=== PATIENT | female | born 1955 | race African-American/Black ===

== ENCOUNTER 2021-11-04 13:23 | Inpatient (IN) | payer MEDICARE, MEDICAID, SELFPAY ==
[2021-11-04] VITALS (32 sets, daily range): BP systolic 114–171; BP diastolic 58–112; PULSE 70–103; RESP 12–25; TEMP 35.5–37.1; O2SAT 90–100; BMI 29.7; BMI 30.1
--- NOTE | ~2021-11-04 | XR_ITS ---
EXAMINATION: XR hip RT min 3V w AP pelvis EXAM DATE: 11/04/2021 14:54 INDICATION: Right hip pain, fall. Initial encounter. TECHNIQUE: Right hip frontal, crosstable lateral and 'frog-leg' projections for interpretation. Front al projection pelvis. There is no prior study for comparison. FINDINGS: Smooth right hip femoral head contour, no radiographic evidence of avascular necrosis. The re is moderate symmetric bilateral hip primary osteoarthritis. There are no acute fractures or disloc ations identified. There is no subcutaneous gas. The soft tissue is unremarkable. There are no ra diopaque foreign bodies. IMPRESSION: 1. Pelvis, right hip exam without acute osseous findings. 2. Moderate osteoarthritis. Reviewed, dictated and finalized at location A. STRIAL MAINTENANCE INSTRUCTOR
--- NOTE | ~2021-11-04 | US_ITS ---
EXAMINATION: US thyroid EXAM DATE: 11/07/2021 15:09 INDICATION: Thyroid enlargement. TECHNIQUE: Multiple grayscale and Doppler images of the thyroid were obtained (by a technologist who performed the scan) and subsequently reviewed. Individual nodules and recommendations may be reporte d in accordance with TI-RADS system as designated by the 2017 ACR White Paper TI-RADS committee. Sharif elation is made to CT cervical spine 11/04/2021. FINDINGS: The right thyroid lobe measures 5.5 x 3.1 x 2.6 cm, has heterogeneous echogenicity with multiple thyr oid nodules, largest category TR 4 nodule measuring 2.9 x 2.5 x 2.9 cm. The left thyroid lobectomy be d is unremarkable. IMPRESSION: Enlarged multinodular right thyroid lobe. Largest nodule could be considered for ultrasou nd-guided FNA. Reviewed, dictated and finalized at location A. PROCESSING LABOURER IMPRESSION: Enlarged multinodular right thyroid lobe. Largest nodule could be c onsidered for ultrasound-guided FNA.
--- NOTE | ~2021-11-04 | CT_ITS ---
EXAMINATION: CT abdomen pelvis wo con DATE: 11/07/2021 15:18 INDICATION: Loss of appetite, weight loss TECHNIQUE: Computed tomography (CT) of the abdomen and pelvis was performed without intravenous contr ast. The dose-length product (DLP) was 677.23 mGy-cm. Automated exposure control and iterative recons truction technique were employed. COMPARISON: 06/07/2008 FINDINGS: The lung bases are clear. The heart size is normal. Within the limitations of noncontrast e xamination, the liver, pancreas, gallbladder, and right adrenal gland are normal. There is chronic th ickening of the left adrenal gland which maintains its adreniform shape. Punctate calcifications in a n otherwise normal spleen likely represent healed granulomatous disease. There is a 1.8 cm cyst of th e right kidney. The left kidney is unremarkable. Contrast from recent modified barium swallow partial ly opacifies the large bowel. No pathologically enlarged abdominal or pelvic lymph nodes are identifi ed. There is no free intraperitoneal gas or evidence of bowel obstruction. There is severe lumbar spo ndylosis. IMPRESSION: 1. No CT correlate for the patient's symptoms. Reviewed, dictated and finalized at location B. ESTATE MANAGER
--- NOTE | ~2021-11-04 | CT_ITS ---
EXAMINATION: CT brain wo con DATE: 11/04/2021 14:45 INDICATION: Head injury. TECHNIQUE: Computed tomography (CT) of the head was performed without intravenous contrast. The mA wa s adjusted according to patient size. Iterative reconstruction technique was employed. The dose-lengt h product was 605.33 mGy-cm. COMPARISON: None FINDINGS: There is no intracranial hemorrhage, acute infarction, or abnormal intracranial mass lesion . There are scattered areas of low attenuation in the cerebral white matter. The ventricles are mojgan l in size. There are likely changes of right ocular lens replacement surgery. There is mild mucosal t hickening in the ethmoid sinuses. The mastoid air cells are normal. IMPRESSION: 1. Mild nonspecific cerebral white matter disease, which likely represents chronic small vessel ische tien disease. Reviewed, dictated and finalized at location A. C LEADER IMPRESSION: 1. Mild nonspecific cerebral white matter disease, which likely represents grooming salon manager vipul small vessel ischemic disease.
--- NOTE | ~2021-11-04 | US_ITS ---
EXAMINATION: US FNA w image guidance DATE: 11/10/2021 13:44 INDICATION: Thyroid nodule and weight loss TECHNIQUE: A time-out was performed to verify the patient's name, date of , and procedure to be performed . The procedure and its benefits and risks were discussed with the patient. Risks specifically discus sed included bleeding and infection. The patient understood the risks and agreed to proceed. The neck was prepped and draped in the usual sterile manner. 3 mL 1% lidocaine was used for local anesthesia . 6 passes were made with a 25G needle into the lesion. Appropriate needle location was documented with continuous sonographic guidance. The specimens were passed to the geospatial information technologist in the room. A sterile bandage was applied. There were no immediate complications. FINDINGS: Grayscale ultrasound images demonstrate biopsy needles advanced into the previously identified ill-de fined mass in the inferior right thyroid lobe which measures approximately 1.9 cm in maximal transver se dimension on the current study. IMPRESSION: 1. Successful ultrasound-guided fine needle aspiration of the largest TI RADS 4 right thyroid nodule of concern at the inferior right thyroid. Reviewed, dictated and finalized at location A.
--- NOTE | ~2021-11-04 | US_ITS ---
EXAMINATION: US venous doppler [facility] DATE: 11/05/2021 14:57 INDICATION: Shortness of breath TECHNIQUE: Mendoza scale images without and with compression and Doppler images of the bilateral lower e xtremity veins were obtained. COMPARISON: None FINDINGS: The right common femoral vein, profunda femoral vein, femoral vein, popliteal vein, peroneal trunk, p osterior tibial veins, and greater saphenous vein are patent. The left common femoral vein, profunda femoral vein, femoral vein, popliteal vein, peroneal trunk, po sterior tibial veins, and greater saphenous vein are patent. IMPRESSION: 1. Patent bilateral lower extremity veins. No evidence of deep venous thrombosis. Reviewed, dictated and finalized at location B. TRAINING SPECIALIST IMPRESSION: 1. Patent bilateral lower extremity veins. No evidence of deep venous thrombosi s.
--- NOTE | ~2021-11-04 | XR_ITS ---
EXAMINATION: XR chest 1V portable EXAM DATE: 11/04/2021 13:54 INDICATION: SOB and cough. COVID. TECHNIQUE: Portable AP frontal chest x-ray was obtained. There is no prior study for comparison. FINDINGS: Linear right basilar airspace disease most likely atelectasis. The lungs are otherwise melba r. No pneumothorax or pleural effusion. Cardiomediastinal silhouette is normal. There are bony degene rative changes. Thoracic diffuse idiopathic skeletal hyperostosis. IMPRESSION: Right basilar subsegmental atelectasis. Reviewed, dictated and finalized at location A. ESS DESIGNER
--- NOTE | ~2021-11-04 | CT_ITS ---
EXAMINATION: CT cervical spine wo con DATE: 11/04/2021 14:46 INDICATION: Neck injury. TECHNIQUE: Computed tomography (CT) of the cervical spine was performed without intravenous contrast. Automated exposure control and iterative reconstruction technique were employed. The dose-length pro duct was 265.33 mGy-cm. COMPARISON: None FINDINGS: There is a multinodular goiter status post left hemithyroidectomy. There is mild emphysema. There is 3 degrees dextrocurvature of cervical spine. Vertebral body heights and intervertebral disc heights are normal. There are bridging endplate osteophytes from C3 to C5. The following disc levels are specifically discussed: C2-C3: There is no uncovertebral joint osteoarthritis. There is no facet joint osteoarthritis. There is no neural foraminal stenosis. There is no central canal stenosis. C3-C4: There is ankylosis uncovertebral joints without hypertrophy. There is no facet joint osteoarth ritis. There is no neural foraminal stenosis. There is no central canal stenosis. C4-C5: There is mild right uncovertebral joint hypertrophy. There is no facet joint osteoarthritis. T here is mild right neural foraminal stenosis. There is no central canal stenosis. C5-C6: There is no uncovertebral joint osteoarthritis. There is no facet joint osteoarthritis. There is no neural foraminal stenosis. There is mild central canal stenosis. C6-C7: There is no uncovertebral joint osteoarthritis. There is no facet joint osteoarthritis. There is no neural foraminal stenosis. There is mild central canal stenosis. C7-T1: There is no uncovertebral joint osteoarthritis. There is mild lateral facet joint osteoarthrit is. There is no neural foraminal stenosis. There is no central canal stenosis. IMPRESSION: 1. No fracture. 2. Mild cervical spondylosis. Reviewed, dictated and finalized at location A. UTER SCIENCE INTERN
--- NOTE | ~2021-11-04 | CT_ITS ---
EXAMINATION: CT thoracic lumbar wo con DATE: 11/04/2021 14:46 INDICATION: Back pain. Fall down steps. TECHNIQUE: Computed tomography (CT) of the thoracic and lumbar spine was performed without intravenou s contrast. Automated exposure control and iterative reconstruction technique were employed. The dose -length product was 1757.89 mGy-cm. COMPARISON: None FINDINGS: CT THORACIC SPINE: There is mild emphysema. There is mild atelectasis in right lower lobe. Calcified right hilar lymph nodes are consistent with old granulomatous disease. There is 4 degrees levocurvatu re of upper thoracic spine. There is mild chronic anterior wedging of T12 vertebral body, likely phys iologic. Intervertebral disc heights are normal. There are bridging endplate osteophytes at multiple levels in the spine, consistent with diffuse idiopathic skeletal hyperostosis (DISH). There is ankylo sis of the facet joints at multiple levels in upper thoracic spine. There is mild bilateral neural fo raminal stenosis at multiple levels. There is moderate neural foraminal stenosis on the right at T5-T 6 and on the left at T2-T3 and T5-T6. There is mild central canal stenosis at T7-T8. CT LUMBAR SPINE: There is 3 mm anterolisthesis of L3 on L4. Vertebral body heights are normal. There is severely decreased disc height at L3-L4 and L4-L5 with endplate remodeling. The following disc lev els are specifically discussed: L1-L2: The disc does not extend beyond the endplate margin. There is severe bilateral facet joint ost eoarthritis. There is mild bilateral neural foraminal stenosis. There is no central canal stenosis. L2-L3: The disc does not extend beyond the endplate margin. There is moderate bilateral facet joint o steoarthritis. There is mild bilateral neural foraminal stenosis. There is no central canal stenosis. L3-L4: The disc is bulging. There is moderate right and severe left facet joint osteoarthritis. There is moderate bilateral neural foraminal stenosis. There is moderate central canal stenosis. L4-L5: The disc is bulging. There is mild bilateral facet joint osteoarthritis. There is moderate red ateral neural foraminal stenosis. There is moderate central canal stenosis. L5-S1: The disc does not extend beyond the endplate margin. There is severe bilateral facet joint ost eoarthritis. There is mild bilateral neural foraminal stenosis. There is no central canal stenosis. IMPRESSION: 1. No fracture. 2. Thoracic DISH. 3. Severe lumbar spondylosis. Reviewed, dictated and finalized at location A. TIONAL GUIDANCE COUNSELOR
--- NOTE | ~2021-11-04 | CT_ITS ---
EXAMINATION: CTA chest PE protocol EXAM DATE: 11/05/2021 15:04 INDICATION: Hypoxia. TECHNIQUE: Spiral CTA of the chest (pulmonary arteries) was performed with 100 cc Omnipaque 350 intr avenous contrast injection. Images were acquired during the pulmonary arterial phase. Coronal maxi mum intensity projection 3D-reconstructions were created by the technologist on dedicated workstation . Axial, coronal and sagittal reformatted images were reviewed. The dose-length product (DLP) for t his examination was 383.79 mGy-cm. The exposure was tailored according to patient size (auto mA exp osure control), and iterative reconstruction (ASIR) was used as additional dose reduction technique. There is no prior study for comparison. FINDINGS: Pulmonary arteries are well opacified and without intraluminal filling defects. No thora cic aortic dissection. Right lower lobe calcified granuloma. Some other scattered postinfectious res idua. There is mild emphysema. There are no pleural or pericardial effusions. Tracheobronchial duc e is patent. There is no mediastinal, hilar or axillary lymphadenopathy. There is no pneumothorax . Heart normal in size. There is mild coronary arterial calcification, arterial sclerosis. Upper abdomen is unremarkable. There is thoracic spondylosis without osteoblastic or osteolytic lesions identified. Enlarged right thyroid lobe, possible left thyroid lobectomy. There is retromanubrial mass measuring 1.9 x 2.8 cm, similar density to the right thyroid lobe, however does not appear contiguous to that. This could be a pathologically enlarged lymph node. Is there any history of thyroid cancer or other m alignancy? No other mediastinal, hilar or axillary masses. IMPRESSION: 1. Retromanubrial mass, differential diagnosis including thymic adenoma, thymic carcinoma, ectopic t hyroid tissue, metastatic lymphadenopathy, lymphoma. Cardiothoracic surgeons typically required for obtaining histologic correlation from this location. 2. Mild emphysema and hyperinflation. 3. Postinfectious residua. Reviewed, dictated and finalized at location A. OR OF NATUROPATHIC MEDICINE IMPRESSION: 1. Retromanubrial mass, differential diagnosis including thymic adenoma, thymi c carcinoma, ectopic thyroid tissue, metastatic lymphadenopathy, lymphoma. Car diothoracic surgeons typically required for obtaining histologic correlation fr om this location. 2. Mild emphysema and hyperinflation. 3. Postinfectious residua.
--- NOTE | ~2021-11-04 | XR_ITS ---
EXAMINATION: XR barium swallow modified DATE: 11/05/2021 08:47 INDICATION: Dysphagia. TECHNIQUE: The patient was given barium-containing material of multiple consistencies to swallow by t he speech pathologist while I performed fluoroscopy. Fluoroscopy exposure time was 1.1 minutes. The n umber of fluoroscopy images saved to the PACS was 1. Dose-area product was 0.831 Gy-cm^2. FINDINGS: There is laryngeal penetration with thin liquids in neutral position and with neck flexed. IMPRESSION: 1. Laryngeal penetration with thin liquids. No aspiration. 2. Please refer to the speech therapy report for recommendations. Reviewed, dictated and finalized at location A. OMS GUARD
--- NOTE | 2021-11-04 13:36 | ECG_ITS ---
Measurements Intervals [place] Rate: 92 P: 50 PA: 160 QRS: -17 QRSD: 79 T: 89 QT: 284 QTc: 351 Interpretive Statements SINUS RHYTHM WITH OCCASIONAL SUPRAVENTRICULAR PREMATURE COMPLEXES NONSPECIFIC T-WAVE ABNORMALITY BORDERLINE ECG NO PREVIOUS ECG AVAILABLE FOR COMPARISON Electronically Signed On 11-04-2021 14:55:37 AV SPECIALIST by Lobo Anderson M.D.
--- NOTE | 2021-11-04 14:06 | ED.SOB ---
HPI - SOB/Dyspnea General Chief Complaint: Shortness of Breath/Dyspnea Stated Complaint: sob Time Seen by Provider: 11/04/21 13:35 Source: patient Mode of arrival: EMS Limitations: no limitations History of Present Illness HPI Narrative: This is a 66-year-old female that presents to the emergency department for shortness of breath noted since yesterday. Associated with productive cough and wheezing. Reports many of her family members are currently ill with Covid. She has been vaccinated and boosted. She also reports she fell down about 6 steps last night. Reports she falls quite frequently. She complains of low back pain and right hip pain after the fall. She has not been evaluated for this yet. Denies fever, chest pain, numbness or weakness. Related Data Allergies Allergy/AdvReac Type Severity Reaction Status Date / Time tramadol Allergy Mild Unknown Verified 11/04/21 13:30 ibuprofen Allergy Unknown Unknown Verified 11/04/21 13:30 naproxen Allergy Unknown Unknown Verified 11/04/21 13:30 Review of Systems Review of Systems: CONSTITUTIONAL: Denies fever ENT: Denies rhinorrhea, congestion, sore throat CARDIOVASCULAR: Denies chest pain, or edema. RESPIRATORY: Reports cough and dyspnea. All systems reviewed & are unremarkable except as noted in HPI and below PMFSH Past Medical History Medical History (Updated 11/04/21 @ 15:10 by Catalina Macario PA-C) History of asthma History of hypertension Social History Social History (Updated 11/04/21 @ 14:07 by Catalina Macario PA-C) Smoking status: Former smoker Exam Narrative: GENERAL: Well-appearing, well-nourished, and in no acute distress. HEAD: Normocephalic, atraumatic. EYES: PERRLA and EOMI. ENT: Nares clear, no rhinorrhea or epistaxis. Mucous membranes moist. Oropharynx without tonsillar hypertrophy exudate or other lesions. Bilateral TMs pearly rich non-bulging NECK: Supple. No adenopathy or masses. CHEST: Diffuse expiratory wheezing. No respiratory distress. No rales or rhonchi HEART: Regular rate and rhythm. No murmur heard. Normal peripheral pulses. BACK: Tender to palpation of midline lower thoracic spine and lumbar spine EXTREMITIES: Normal range of motion. No edema or obvious deformity. SKIN: Warm, dry, no rash. NEURO: No focal deficits. Alert and oriented x3. Cranial nerves II through XII grossly intact PSYCH: Normal mood and affect Course Consultations Consultation #1: Spoke with hospitalist about patient and work-up who accepts admission Date: 11/04/21 Vital Signs Vital signs: Vital Signs Temperature 98.7 F 11/04/21 13:21 Pulse Rate 103 H 11/04/21 13:21 Respiratory Rate 20 11/04/21 13:21 Blood Pressure 152/73 H 11/04/21 13:21 Pulse Oximetry 100 11/04/21 13:21 Temperature 98.7 F 11/04/21 13:21 Pulse Rate 103 H 11/04/21 13:21 Respiratory Rate 20 11/04/21 13:21 Blood Pressure 152/73 H 11/04/21 13:21 Pulse Oximetry 94 11/04/21 14:03 MDM - SOB/Dyspnea MDM Narrative Medical decision making narrative: Patient presents to the emergency department for shortness of breath. Ongoing since last night. Patient noted to be hypoxic in the 80s on room air. Is currently on 4L via NC with normal oxygen saturations. Diffuse wheezing noted on arrival. Given nebulizer treatment with some improvement. CBC with mild leukocytosis to 11.4. Metabolic panel with evidence of hypokalemia with potassium of 2.7. Patient given IV as well as oral potassium in the ED. Caution with nebulizer treatments due to concurrent hypokalemia. Influenza and COVID screens are negative. Chest x-ray shows right basilar subsegmental atelectasis. Lactic acid is not elevated. Patient also reports she had a fall down about [address] scan of the brain without acute findings. CT scans of the cervical, thoracic, and lumbar spine also without acute findings. Right hip/pelvis x-ray without acute abnormalities. Patient and family updated on case findi
[2021-11-04 14:07] LABS: Basophils Percent Auto 0.3 % (0.2-1.2); Eosinophils Percent Auto 0.2 % (0-4.4); Hematocrit 44.5 % (37.0-47.0); Hemoglobin 14.6 g/dL (12.0-15.0); Immature Granulocyte Absolute 0.05 K/mm3 (0.00-0.031); Immature Granulocyte Percent A 0.4 % (0-0.5); Lymphocytes Absolute Auto 1.71 K/mm3 (0.9-3.2); Mean Corpuscular HGB Conc 32.8 g/dl (32-36); Mean Corpuscular Hemoglobin 32.6 pg (26-34); Mean Corpuscular Volume 99.3 fl (80-100); Mean Platelet Volume 9.3 fl (7.4-10.4); Monocytes Absolute Auto 1.6 K/mm3 (0.1-0.6); Monocytes Percent Auto 14.1 % (2.6-8.5); Platelet Count Result 190 k/mm3 (150-375); Red Blood Count 4.48 M/mm3 (4.2-5.4); Red Cell Distribution Width 13.9 % (11.5-14.5); White Blood Count 11.4 K/mm3 (4.5-10.0)
[2021-11-04] MEDS: methylPREDNISolone SOD SUCC 125 MG VIAL IV PUSH (14:11)
[2021-11-04 14:20] LABS: Lactic Acid Reflex 1.8 mmol/L (0.7-2.1)
[2021-11-04] MEDS: ALBUTEROL SULFATE NEB 2.5 MG/0.5 ML INH 5 MG INHALATION (14:21)
[2021-11-04] MEDS: IPRATROPIUM BR 0.02% INH SOLN 0.5 MG/2.5 ML VIAL INHALATION (14:21)
[2021-11-04 14:27] LABS: Alanine Aminotransferase 10 U/L (4-35); Albumin Level 4.4 g/dL (3.5-5.1); Alkaline Phosphatase 47 U/L (38-126); Anion Gap 7 mmol/L (8-16); Aspartate Amino Transferase 18 U/L (14-36); Bilirubin,Total 0.4 mg/dL (0.2-1.3); Blood Urea Nitrogen 7 mg/dL (7-17); CRP 3.6 mg/dL (<1.0); Calcium 8.6 mg/dL (8.4-10.2); Carbon Dioxide 29 mmol/L (22-30); Chloride 102 mmol/L (98-107); Estimated CRCL calculation 78 ml/min; Estimated Glomerular Filt Rate > 60; Glucose 123 mg/dL (65-110); Lactate Dehydrogenase 367 U/L (313-618); Potassium 2.7 mmol/L (3.4-5.0); Sodium 138 mmol/L (137-145)
[2021-11-04 14:45] LABS: Influenza A QL RT-PCR Negative (Negative); Influenza B QL RT-PCR Negative (Negative); SARS-CoV-2 RNA PCR Negative
--- NOTE | 2021-11-04 15:01 | PCRCNOTE ---
STUCK PT FOR abg, SHE FLICHED AND SCREAMED FOR ME TO TAKE THE NEEDLE OUT. STATES SHE WONT LET ME DO THAT AGAIN.
[2021-11-04] MEDS: POTASSIUM CHLORIDE INJ 40 MEQ in SODIUM CHLORIDE 0.9% IV 500 ML 130 MEQ IVPB (15:15)
[2021-11-04] MEDS: MAGNESIUM SULF 2 GM/WATER 50ML 2 GM/50 ML BAG IVPB (17:00)
[2021-11-04] MEDS: POTASSIUM CHLORIDE 20 MEQ TABLET 40 MEQ PO (17:00)
--- NOTE | 2021-11-04 17:00 | PM.IMHP ---
H&P: HPI History of Present Illness Date/Time: 11/04/21 17:00 Chief Complaint: Shortness of breath. Narrative: This is a very pleasant 66-year-old female with asthma, hypertension, and diet-controlled diabetes who presented to the emergency department EMS for evaluation of shortness of breath. Her asthma has been historically well-controlled however yesterday she began feeling short of breath with pretty significant wheezing not improved her rescue inhaler. She was extremely short of breath this morning, reportedly only able to speak in 3 to 4 word sentences, and EMS was summoned. On their arrival, her SpO2 was reportedly 85% on room air and she was given an updraft with a bit of improvement. She was given another nebulizer, dose of Solu-Medrol, and 2 g of magnesium in the emergency department with further improvement. Chest x-ray did not show any acute findings and her rapid influenza a and COVID tests were negative. She endorses a chronic, productive cough for many years in addition to postnasal drip and that is unchanged. Her voice is very hoarse and raspy and she reports that has been present for a couple of years and she can no longer sing. More concerning is a 210 lb unintentional weight loss in the last 1.5 years and she reports that for quite a while ?everything I ate would come right up.? She also endorses occasional dysphagia and liquids ?going down the wrong pipe? but that is not very frequent. It should also be noted that the patient has a history of falls ?because my right leg gives out? and just last night while walking up steps her right leg buckled and she fell backwards down 6 steps. She reports right leg and low back pain but tells me that these are not necessarily worse from her fall. There was no head trauma or loss of consciousness in the fall Review of Systems Review of Systems: Twelve systems were reviewed. Extended family members have had COVID lately though she has not been around them. No fever, chills, or sweats. She denies headache and neck ache. No chest pain, pleuritic pain, palpitations. She denies vomiting and diarrhea. No dysuria. No lower extremity edema. No history of venous thromboembolism. Except as documented, all other systems were reviewed and are negative. [facility] Past Medical History Medical History (Updated 11/04/21 @ 22:15 by Lydia Barboza PA-C) Asthma Chronic low back pain Depression with anxiety Diet-controlled diabetes mellitus Hypertension Rheumatoid arthritis Surgical History Surgical History (Updated 11/04/21 @ 21:50 by Lydia Barboza PA-C) History of section History of hysterectomy History of laparoscopy Ectopic x2. History of partial colectomy For benign reasons. History of partial thyroidectomy History of tonsillectomy Family History Family History (Updated 11/04/21 @ 21:50 by Lydia Barboza PA-C) Other Diabetes mellitus Heart disease Hypertension Kidney failure Social History Social History (Updated 11/04/21 @ 21:51 by Lydia Barboza PA-C) Social History: Surrogate decision maker: Antoni Reese, . Code status: Full code. Years smoked: 20 Smoking status: Former smoker Tobacco type: cigarettes Second hand tobacco smoke exposure: Yes Alcohol intake: never Substance use: never Additional living arrangements comments: The patient lives with her in [place]. Occupation/Education: retired Meds Home Medications and Allergies Allergies Allergy/AdvReac Type Severity Reaction Status Date / Time lisinopril Allergy Intermediate Swelling Verified 11/04/21 21:21 of Lip/Tongue/Throat tramadol Allergy Mild Unknown Verified 11/04/21 13:30 ibuprofen Allergy Unknown Unknown Verified 11/04/21 13:30 naproxen Allergy Unknown Unknown Verified 11/04/21 13:30 Vital Signs Vital Signs - 24 hr 11/04/21 13:21 11/04/21 13:25 11/04/21 13:26 Temperature 98.7 F Pulse Rate 103 H Respirator
[2021-11-04 20:12] LABS: Anion Gap 4 mmol/L (8-16); Blood Urea Nitrogen 7 mg/dL (7-17); Calcium 8.4 mg/dL (8.4-10.2); Carbon Dioxide 28 mmol/L (22-30); Chloride 104 mmol/L (98-107); Estimated CRCL calculation 112 ml/min; Estimated Glomerular Filt Rate > 60; Glucose 158 mg/dL (65-110); Potassium 3.3 mmol/L (3.4-5.0); Sodium 136 mmol/L (137-145)
--- NOTE | 2021-11-04 20:18 | ADMGEN ---
This patient, Cat Reese, was admitted to IMU Room 210-01 @ approximately 1920 . Patient/family oriented to hospital policies and general routines including ID bracelet, bed and alarms, visiting hours, pain management, procedures, bathroom and other care routines, personal items, smoking policy, room service/diet, and visiting hours. Information on how to activate the Rapid Response Team has been discussed. Patient/Family are encouraged to report perceived risks to care and to ask questions if they do not understand what they are told or what they should do.
[2021-11-05] VITALS (21 sets, daily range): BP systolic 122–138; BP diastolic 56–78; PULSE 67–89; RESP 15–20; TEMP 36.1–37.1; O2SAT 94–100; BMI 30.4
[2021-11-05] MEDS: ACETAMINOPHEN 325 MG TABLET 650 MG PO ×2 (00:15→08:12)
[2021-11-05] MEDS: methylPREDNISolone SOD SUCC 125 MG VIAL 60 MG IV PUSH ×3 (00:19→16:12)
[2021-11-05 00:32] LABS: Glucose Point of Care 139 mg/dl (65-105)
[2021-11-05 05:07] LABS: Hematocrit 43.6 % (37.0-47.0); Hemoglobin 14.3 g/dL (12.0-15.0); Mean Corpuscular HGB Conc 32.8 g/dl (32-36); Mean Corpuscular Hemoglobin 32.9 pg (26-34); Mean Corpuscular Volume 100.2 fl (80-100); Mean Platelet Volume 9.9 fl (7.4-10.4); Platelet Count Result 205 k/mm3 (150-375); Red Blood Count 4.35 M/mm3 (4.2-5.4); Red Cell Distribution Width 13.8 % (11.5-14.5); White Blood Count 6.4 K/mm3 (4.5-10.0)
[2021-11-05 05:17] LABS: Anion Gap 6 mmol/L (8-16); Blood Urea Nitrogen 8 mg/dL (7-17); Calcium 8.6 mg/dL (8.4-10.2); Carbon Dioxide 27 mmol/L (22-30); Chloride 106 mmol/L (98-107); Estimated CRCL calculation 96 ml/min; Estimated Glomerular Filt Rate > 60; Glucose 136 mg/dL (65-110); Magnesium 2.6 mg/dL (1.6-2.3); Sodium 139 mmol/L (137-145)
[2021-11-05 05:53] LABS: Hemoglobin A1C 4.7 % (<5.7)
[2021-11-05 06:31] LABS: Potassium 4.2 mmol/L (3.4-5.0)
[2021-11-05 07:12] LABS: Free T4 Free Thyroxine Reflex 1.16 ng/dL (0.78-2.19)
[2021-11-05] MEDS: ALBUTEROL SULFATE NEB 2.5 MG/0.5 ML INH INHALATION ×3 (08:55→20:14)
[2021-11-05] MEDS: IPRATROPIUM BR 0.02% INH SOLN 0.5 MG/2.5 ML VIAL INHALATION ×3 (08:55→20:14)
[2021-11-05 09:15] LABS: Glucose Point of Care 140 mg/dl (65-105)
--- NOTE | 2021-11-05 09:45 | PCOTNOTE ---
Attempted OT evaluation, patient declined therapy at this time reports is to afraid to become out of breath . Patient's RN in room and agrees to attempt evaluation at later time.
[2021-11-05 10:16] LABS: Total Triiodothyronine (T3) 1.06 NG/ML (0.97-1.69)
--- NOTE | 2021-11-05 11:39 | PCPTNOTE ---
Attempted PT evaluation, Patient was eating and requested therapy returned after lunch. RN aware.
--- NOTE | 2021-11-05 11:49 | PCSTNOTE ---
Please refer to the Modified Barium Swallow Evaluation in the EMR.
[2021-11-05 12:38] LABS: Glucose Point of Care 114 mg/dl (65-105)
--- NOTE | 2021-11-05 14:19 | PM.IMPN ---
Progress Note: A&P Assessment and Plan (1) Asthma exacerbation: Qualifiers: Asthma persistence: persistent Asthma severity: unspecified severity Qualified Code(s): J45.901 - Unspecified asthma with (acute) exacerbation Code(s): J45.901 - Unspecified asthma with (acute) exacerbation Status: Acute Assessment and Plan: -She has been started on scheduled bronchodilators and Solu-Medrol. -No indication for antibiotics at this time. -she is hypoxic on 3L NC, not normally on home oxygen, will check CTA to r/o PE (2) Hypokalemia: Code(s): E87.6 - Hypokalemia Status: Acute Assessment and Plan: -Potassium will be replaced and monitored closely while receiving bronchodilators. (3) Acute respiratory failure with hypoxia: Code(s): J96.01 - Acute respiratory failure with hypoxia Status: Acute Assessment and Plan: -Secondary to asthma exacerbation. -Pulmonary embolism seems less likely by history however patient does note RLE pain x months so will check CTA and BLE dopplers (4) Weight loss, unintentional: Code(s): R63.4 - Abnormal weight loss Status: Acute Assessment and Plan: -Per patient report she has lost 210 lb in the last 1.5 years without actively trying. -She is closely followed by her primary care provider and she has apparently had both upper and lower endoscopy which were unremarkable. -Swallow study completed which shows trace penetration, she was given exercises by speech therapy (5) Diet-controlled diabetes mellitus: Code(s): E11.9 - Type 2 diabetes mellitus without complications Status: Acute Assessment and Plan: -No longer on medication after her weight loss. -Initiate sliding scale insulin and monitor Accu-Cheks as she is currently receiving steroids. -hemoglobin A1c 4.7 (6) Hypertension: Code(s): I10 - Essential (primary) hypertension Status: Acute Assessment and Plan: -Blood pressures were reviewed and they are stable. -Continue antihypertensives and monitor daily. (7) Fall down steps: Qualifiers: Encounter type: initial encounter Qualified Code(s): W10.8XXA - Fall (on) (from) other stairs and steps, initial encounter Code(s): W10.8XXA - Fall (on) (from) other stairs and steps, initial encounter Status: Acute Assessment and Plan: -Patient endorses history of falls ?because my right leg gives out.? -She is being followed by her primary care provider and orthopedic surgeon. -She has no focal weakness or paresthesias and brain CT was unremarkable. -Luckily she sustained no significant injuries in the fall. -PT/OT consulted. (8) Hoarseness: Code(s): R49.0 - Dysphonia Status: Acute Assessment and Plan: -A neurologic process must be considered with her hoarseness/change in voice, occasional dysphagia, weight loss, and falls. -She will need close follow-up with her PCP and would likely benefit from a neurology referral. -I also spoke with Dr. Juan Carlos Phoenix (ENT) and the patient is to follow up with him in the office to evaluate the hoarseness. Additional Plan A neurologic process must be considered with her hoarseness, occasional dysphagia, weight loss, and falls. At this time she will be treated for her asthma exacerbation but she will need referral Subjective Date/time seen: 11/05/21 14:19 Interval history: 66-year-old female with asthma, hypertension, and diet-controlled diabetes admitted to the hospital for asthma exacerbation. Pt states she still feels sob, worse with exertion. Still wheezing. No chest pain. Has some RLE pain which has been there for weeks. Also has a cough which has been productive with green sputum x 2 months. No fevers. No N/V/abd pain. She has a sinus headache and is requesting Coricidin which she states she normally takes OTC for her headaches.
--- NOTE | 2021-11-05 15:32 | PC.NURSE ---
This patient, Cat Reese, was transferred to [[id number] ] on 11/05/21 at 1435. Personal belongings sent with patient. Report given to [Dominga ]. Appropriate documentation sent with patient.
[2021-11-05] MEDS: LORATADINE/PSEUDOEPHEDRINE (*CRX) 10/240 MG TABLET ER 24 HR 1 TAB PO (16:12)
[2021-11-05 16:31] LABS: Glucose Point of Care 140 mg/dl (65-105)
[2021-11-05] MEDS: FLUTICASONE PROPIONATE 0.05% NA SPR 16 GM BTL (*BKC) 1 SPRAY NASAL (20:36)
[2021-11-05 22:26] LABS: Glucose Point of Care 149 mg/dl (65-105)
[2021-11-06] VITALS (14 sets, daily range): BP systolic 128–143; BP diastolic 62–78; PULSE 72–88; RESP 16–20; TEMP 36–36.6; O2SAT 96–99
[2021-11-06] MEDS: methylPREDNISolone SOD SUCC 125 MG VIAL 60 MG IV PUSH ×4 (00:10→23:45)
[2021-11-06] MEDS: ALBUTEROL SULFATE NEB 2.5 MG/0.5 ML INH INHALATION ×4 (02:37→20:06)
[2021-11-06] MEDS: IPRATROPIUM BR 0.02% INH SOLN 0.5 MG/2.5 ML VIAL INHALATION ×4 (02:37→20:05)
[2021-11-06] MEDS: IPRATROPIUM BR 0.02% INH SOLN 0.5 MG/2.5 ML VIAL (04:40)
[2021-11-06] MEDS: ALBUTEROL SULFATE NEB 2.5 MG/0.5 ML INH (04:50)
[2021-11-06 05:28] LABS: Basophils Percent Auto 0.2 % (0.2-1.2); Hematocrit 44.4 % (37.0-47.0); Hemoglobin 14.7 g/dL (12.0-15.0); Immature Granulocyte Absolute 0.19 K/mm3 (0.00-0.031); Immature Granulocyte Percent A 1.2 % (0-0.5); Lymphocytes Absolute Auto 1.43 K/mm3 (0.9-3.2); Mean Corpuscular HGB Conc 33.1 g/dl (32-36); Mean Corpuscular Hemoglobin 32.4 pg (26-34); Mean Corpuscular Volume 97.8 fl (80-100); Mean Platelet Volume 10.1 fl (7.4-10.4); Monocytes Absolute Auto 0.7 K/mm3 (0.1-0.6); Monocytes Percent Auto 4.3 % (2.6-8.5); Neutrophils Absolute Auto 13.6 K/mm3 (1.3-6.7); Neutrophils Percent Auto 85.3 % (45.5-73.1); Platelet Count Result 223 k/mm3 (150-375); Red Blood Count 4.54 M/mm3 (4.2-5.4); Red Cell Distribution Width 13.7 % (11.5-14.5); White Blood Count 15.9 K/mm3 (4.5-10.0)
[2021-11-06 05:47] LABS: Alanine Aminotransferase 12 U/L (4-35); Albumin Level 4.2 g/dL (3.5-5.1); Alkaline Phosphatase 42 U/L (38-126); Anion Gap 7 mmol/L (8-16); Aspartate Amino Transferase 24 U/L (14-36); Bilirubin,Total 0.2 mg/dL (0.2-1.3); Blood Urea Nitrogen 12 mg/dL (7-17); Calcium 8.6 mg/dL (8.4-10.2); Carbon Dioxide 30 mmol/L (22-30); Chloride 104 mmol/L (98-107); Estimated CRCL calculation 97 ml/min; Estimated Glomerular Filt Rate > 60; Glucose 140 mg/dL (65-110); Potassium 3.9 mmol/L (3.4-5.0); Sodium 141 mmol/L (137-145)
[2021-11-06 08:04] LABS: Glucose Point of Care 149 mg/dl (65-105)
[2021-11-06] MEDS: FLUTICASONE PROPIONATE 0.05% NA SPR 16 GM BTL (*BKC) 1 SPRAY NASAL ×2 (08:36→20:29)
[2021-11-06] MEDS: LORATADINE/PSEUDOEPHEDRINE (*CRX) 10/240 MG TABLET ER 24 HR 1 TAB PO (08:36)
[2021-11-06] MEDS: HYDROcodone/acetaminophen (*CRX) 10-325 MG TABLET 1 TAB PO ×2 (09:20→17:58)
--- NOTE | 2021-11-06 09:26 | PM.IMPN ---
Progress Note: A&P Assessment and Plan (1) Asthma exacerbation: Qualifiers: Asthma persistence: persistent Asthma severity: unspecified severity Qualified Code(s): J45.901 - Unspecified asthma with (acute) exacerbation Code(s): J45.901 - Unspecified asthma with (acute) exacerbation Status: Acute Assessment and Plan: -She has been started on scheduled bronchodilators and Solu-Medrol. -with ongoing cough will add since azithromycin which also has an anti-inflammatory affect -she is hypoxic on 3L NC, not normally on home oxygen, CTA ruled out PE does have mild emphysema in her lung cuello. And Advair Diskus twice a day (2) Hypokalemia: Code(s): E87.6 - Hypokalemia Status: Acute Assessment and Plan: -replace and monitor (3) Acute respiratory failure with hypoxia: Code(s): J96.01 - Acute respiratory failure with hypoxia Status: Acute Assessment and Plan: -Secondary to asthma exacerbation. -Pulmonary embolism seems less likely by history however patient does note RLE pain x months CTA negative for PE Bilateral lower extremity Doppler negative for DVT as well (4) Weight loss, unintentional: Code(s): R63.4 - Abnormal weight loss Status: Acute Assessment and Plan: -Per patient report she has lost 210 lb in the last 1.5 years without actively trying. -She is closely followed by her primary care provider and she has apparently had both upper and lower endoscopy which were unremarkable. 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 Unclear from the scan. Outpatient PET scan would be a next step to do further delineate to see the level of uptake for possibly need for biopsy. No other mediastinal hilar axillary masses noted She is status post left thyroid lobectomy (5) Diet-controlled diabetes mellitus: Code(s): E11.9 - Type 2 diabetes mellitus without complications Status: Acute Assessment and Plan: -No longer on medication after her weight loss. -Initiate sliding scale insulin and monitor Accu-Cheks as she is currently receiving steroids. -hemoglobin A1c 4.7 (6) Hypertension: Code(s): I10 - Essential (primary) hypertension Status: Acute Assessment and Plan: -Blood pressures were reviewed and they are stable. -Continue antihypertensives and monitor daily. (7) Fall down steps: Qualifiers: Encounter type: initial encounter Qualified Code(s): W10.8XXA - Fall (on) (from) other stairs and steps, initial encounter Code(s): W10.8XXA - Fall (on) (from) other stairs and steps, initial encounter Status: Acute Assessment and Plan: -Patient endorses history of falls ?because my right leg gives out.? -She is being followed by her primary care provider and orthopedic surgeon. -She has no focal weakness or paresthesias and brain CT was unremarkable. -Luckily she sustained no significant injuries in the fall. -PT/OT consulted. I believe these are related to her lumbar radiculopathy, thorax: Lumbar CT scan with severe lumbar spondylosis noted Follow-up was on outpatient basis (8) Hoarseness: Code(s): R49.0 - Dysphonia Status: Acute Assessment and Plan: -A neurologic process must be considered with her hoarseness/change in voice, occasional dysphagia, weight loss, and falls. -She will need close follow-up with her PCP and would likely benefit from a neurology referral. -previous provider also spoke with Dr. Juan Carlos Phoenix (ENT) and the patient is to follow up with him in the office to evaluate the hoarseness. She is also as fingers could contribute to the finding of hoarseness Need direct laryngosc
[2021-11-06] MEDS: hydrOXYzine HCL 25 MG TABLET PO (10:48)
[2021-11-06] MEDS: VENLAFAXINE HCL XR 75 MG CAP.ER.24H PO (10:48)
[2021-11-06] MEDS: amLODIPine BESYLATE 5 MG TABLET 10 MG PO (10:48)
[2021-11-06 11:29] LABS: Glucose Point of Care 143 mg/dl (65-105)
[2021-11-06] MEDS: LIDOCAINE 5% PATCH 1 PATCH TRANSDERM (12:39)
[2021-11-06 16:34] LABS: Glucose Point of Care 159 mg/dl (65-105)
[2021-11-06] MEDS: FLUTICASONE/SALMETEROL 115-21 MCG INHALER 1 PUFF 2 PUFF INHALATION (20:11)
[2021-11-06 20:34] LABS: Glucose Point of Care 108 mg/dl (65-105)
[2021-11-06] MEDS: HYDROcodone/acetaminophen (*CRX) 5-325 MG TABLET 1 TAB PO (22:05)
[2021-11-07] VITALS (12 sets, daily range): BP systolic 124–140; BP diastolic 63–74; PULSE 67–90; RESP 16–21; TEMP 35.7–36.6; O2SAT 93–100
--- NOTE | 2021-11-07 | ECHO_ITS ---
Patient Info Name: Cat Reese Age: 66 years : 1955 Gender: Female Ht: 65 in Wt: 183 lbs BSA: 1.98 m2 HR: 75 bpm BP: 137 / 74 mmHg Heart Rhythm: Sinus Rhythm Technical Quality: Fair Exam Date: 11/07/2021 1:35 PM Exam Location: [facility] Pulmonary Patient Status: Inpatient Admit Date: 11/05/2021 Staff Ordering Physician: Simeon Balderrama MD Hydrogenation Operator: Pauly Schaffer RDCS Attending Provider: Simeon Balderrama MD Exam Type: CA echo doppler color flow Study Info Indications - dyspnea Complete two-dimensional, color flow and Doppler transthoracic echocardiogram is performed. Summary 1. Complete two-dimensional, color flow and Doppler transthoracic echocardiogram is performed. 2. Left ventricular chamber dimension is normal. 3. Left ventricular systolic function is normal, estimated at 60-65%. 4. The left ventricular diastolic function is grade I diastolic dysfunction. 5. E/e' 9 is minimally elevated. 6. Right ventricular systolic function is mildly reduced based on TAPSE 1.6 cm. 7. There is trace tricuspid valve regurgitation. 8. Mild pulmonary hypertension, estimated pulmonary arterial systolic pressure is 43 mmHg. 9. There is mild pulmonic regurgitation. Left Ventricle E/e' 9 is minimally elevated. Left ventricular chamber dimension is normal. Left ventricular systolic function is normal, estimated at 60-65%. The left ventricular diastolic function is grade I diastolic dysfunction. Right Ventricle Right ventricular systolic function is mildly reduced based on TAPSE 1.6 cm. Right ventricular chamber dimension is not well visualized. Left Atria Left atrial chamber dimension is normal. Right Atria Right atrial chamber dimension is normal. Aortic Valve The aortic valve is trileaflet. There is no aortic valve stenosis. There is no aortic valve regurgitation. Pulmonic Valve There is mild pulmonic regurgitation. Mitral Valve There is no mitral valve stenosis. There is no mitral valve regurgitation. Tricuspid Valve There is trace tricuspid valve regurgitation. Mild pulmonary hypertension, estimated pulmonary arterial systolic pressure is 43 mmHg. Pericardium/Pleural There is no pericardial effusion. Inferior Vena Cava Normal inferior vena cava with >50% collapse upon inspiration consistent with normal right atrial pressure, 5 mmHg. Aorta The aortic root size at the sinus of Valsalva is normal. Left Ventricular Outflow Tract Name Value Normal LVOT 2D LVOT Diameter 2.0 cm LVOT Doppler LVOT Peak Gradient 6 mmHg LVOT Mean Gradient 2 mmHg LVOT VTI 22 cm LVOT VTI/AV VTI Ratio 1.0 LVOT Stroke Volume 69 ml LVOT CO 6.1 l/min LVOT CI 3.1 l/min/m2 Pulmonic Valve Name Value Normal
[2021-11-07] MEDS: IPRATROPIUM BR 0.02% INH SOLN 0.5 MG/2.5 ML VIAL INHALATION ×4 (02:15→20:00)
[2021-11-07] MEDS: ALBUTEROL SULFATE NEB 2.5 MG/0.5 ML INH INHALATION ×4 (02:15→20:00)
[2021-11-07 07:43] LABS: Glucose Point of Care 121 mg/dl (65-105)
[2021-11-07] MEDS: FLUTICASONE/SALMETEROL 115-21 MCG INHALER 1 PUFF 2 PUFF INHALATION (08:29)
[2021-11-07] MEDS: LIDOCAINE 5% PATCH 1 PATCH TRANSDERM (08:40)
[2021-11-07] MEDS: VENLAFAXINE HCL XR 75 MG CAP.ER.24H PO (08:41)
[2021-11-07] MEDS: methylPREDNISolone SOD SUCC 125 MG VIAL 60 MG IV PUSH (08:41)
[2021-11-07] MEDS: hydrOXYzine HCL 25 MG TABLET PO (08:42)
[2021-11-07] MEDS: amLODIPine BESYLATE 5 MG TABLET 10 MG PO (08:42)
[2021-11-07] MEDS: LORATADINE/PSEUDOEPHEDRINE (*CRX) 10/240 MG TABLET ER 24 HR 1 TAB PO (08:43)
[2021-11-07] MEDS: HYDROcodone/acetaminophen (*CRX) 10-325 MG TABLET 1 TAB PO ×2 (09:52→15:54)
[2021-11-07 11:14] LABS: Glucose Point of Care 140 mg/dl (65-105)
--- NOTE | 2021-11-07 11:39 | PCNFU ---
Nutrition Follow-Up Complete: Unintended weight loss as related to partial thyroidectomy as evidenced by greater than 20% weight loss in 1 year. Goal; Adequate intake of at least 75% of meals/supplements Patient has limited progress towards goal. We will continue current goal. Pt current nutrition is Heart Healthy/DBCC with Ensure compact BID. Last recorded weight is 83.2 kg-stable Bowel Motility: +BM reported 11/06 Labs Reviewed:No labs to report. Meds Noted: [place], Effexor, Lidoderm, Atrovent, Solu Medrol, Albuterol. Skin: WNL Additional Notes: Patient seen today for nutrition follow up. She is asking for more coffee. Oral Intake has been very poor 10-25% of most meals. She states she is not hungry and usually will not eat until later in the day. Decrease motivation to eat oral foods. She has already lost over 200 ibs, unintentionally. Spoke with MD about possibly starting Megace to stimulate appetite. If dietary supplement is consumed it will provide an additional 220 kcals and 9 gms protein. PO intake encouraged. Monitoring: Will monitor every 3 days.
--- NOTE | 2021-11-07 13:27 | PM.IMPN ---
Progress Note: A&P Assessment and Plan (1) Asthma exacerbation: Qualifiers: Asthma persistence: persistent Asthma severity: unspecified severity Qualified Code(s): J45.901 - Unspecified asthma with (acute) exacerbation Code(s): J45.901 - Unspecified asthma with (acute) exacerbation Status: Acute Assessment and Plan: -She has been started on scheduled bronchodilators and Solu-Medrol. -with ongoing cough and did azithromycin which also has an anti-inflammatory affect -she is hypoxic on 3L NC, not normally on home oxygen, CTA ruled out PE does have mild emphysema in her lung cuello. And Advair Diskus twice a day still wheezy 11/07/2021. Pulmonary consultation. Add Pulmicort nebs scheduled Will also check echocardiogram to look at her heart function check BNP (2) Hypokalemia: Code(s): E87.6 - Hypokalemia Status: Acute Assessment and Plan: -replace and monitor (3) Acute respiratory failure with hypoxia: Code(s): J96.01 - Acute respiratory failure with hypoxia Status: Acute Assessment and Plan: -Secondary to asthma exacerbation. -Pulmonary embolism seems less likely by history however patient does note RLE pain x months CTA negative for PE Bilateral lower extremity Doppler negative for DVT as well (4) Weight loss, unintentional: Code(s): R63.4 - Abnormal weight loss Status: Acute Assessment and Plan: -Per patient report she has lost 210 lb in the last 1.5 years without actively trying. -She is closely followed by her primary care provider and she has apparently had both upper and lower endoscopy which were unremarkable. 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 Unclear from the scan. Outpatient PET scan would be a next step to do further delineate to see the level of uptake for possibly need for biopsy. No other mediastinal hilar axillary masses noted She is status post left thyroid lobectomy Will get CT abdomen pelvis today for further evaluation poor appetite weight loss (5) Diet-controlled diabetes mellitus: Code(s): E11.9 - Type 2 diabetes mellitus without complications Status: Acute Assessment and Plan: -No longer on medication after her weight loss. -Initiate sliding scale insulin and monitor Accu-Cheks as she is currently receiving steroids. -hemoglobin A1c 4.7 (6) Hypertension: Code(s): I10 - Essential (primary) hypertension Status: Acute Assessment and Plan: -Blood pressures were reviewed and they are stable. -Continue antihypertensives and monitor daily. (7) Fall down steps: Qualifiers: Encounter type: initial encounter Qualified Code(s): W10.8XXA - Fall (on) (from) other stairs and steps, initial encounter Code(s): W10.8XXA - Fall (on) (from) other stairs and steps, initial encounter Status: Acute Assessment and Plan: -Patient endorses history of falls ?because my right leg gives out.? -She is being followed by her primary care provider and orthopedic surgeon. -She has no focal weakness or paresthesias and brain CT was unremarkable. -Luckily she sustained no significant injuries in the fall. -PT/OT consulted. I believe these are related to her lumbar radiculopathy, thorax: Lumbar CT scan with severe lumbar spondylosis noted Follow-up was on outpatient basis (8) Hoarseness: Code(s): R49.0 - Dysphonia Status: Acute Assessment and Plan: -A neurologic process must be considered with her hoarseness/change in voice, occasional dysphagia, weight loss, and falls. -She will need close follow-up with her PCP and would likely benefit from a neurology referral. -p
--- NOTE | 2021-11-07 13:45 | PCOTNOTE ---
Attempted to see patient this date. First attempt, patient was with patient advocate and finishing breakfast. Second attempt, patient was having bedside testing.
--- NOTE | 2021-11-07 14:16 | PM.CNPUL ---
Assessment and Plan Assessment and plan (1) Asthma exacerbation: Qualifiers: Asthma persistence: persistent Asthma severity: unspecified severity Qualified Code(s): J45.901 - Unspecified asthma with (acute) exacerbation Code(s): J45.901 - Unspecified asthma with (acute) exacerbation Status: Acute Assessment and Plan: Patient carries a history of asthma diagnosed 5 years ago and per her history had been well controlled on Advair 250-50 at 1 or 2 puffs a day. The history in the chart deviates from person to person and my history indicates 6 month worsening cough with thick green phlegm, 2 weeks worsening shortness of breath and wheezing and then developed acute shortness of breath, wheezing, hyperventilation and then passed out. She was hypoxic and brought to the emergency department and required 4 L nasal cannula oxygen she had diffuse wheezes and was treated for an asthma exacerbation with IV steroids, bronchodilators which have been continued through today. She had a negative CT angiogram of the chest negative lower extremity Dopplers negative COVID and flu swab. She will get an echocardiogram. She was found to have a right retro manubrium mass. Currently the patient states she is 50% better. she is on 2 L nasal cannula saturations 94%. I agree with treatment for asthma exacerbation and she has diffuse expiratory wheezing at this time I will place her change her to Solu-Medrol to 40 Q 6 from 60 q.8 hours, I will continue her albuterol 2.5 and ipratropium 0.5 nebulizers q4 hours. I will discontinue her budesonide 0.5 mg nebulizers as she is on systemic steroids, I will discontinue her Advair as she is on systemic steroids and maximal dose beta agonist while receiving albuterol 2.5 mg neb q4 hours I am concerned that the patient is also having panic attacks as she describes episodes of being completely normal and then with the sudden onset of not being able to breathe followed by hyperventilation and wheezing. Consider changing his SNRI, venlafaxine to SSRI. Patient states her sinus congestion is improved on the fluticasone nasal spray and Claritin D. I will continue. Patient has a retro manubrium mass and she should be referred to a thoracic surgeon for further workup of this as an outpatient. US to be performed today. Patient has a hoarse voice ever since her left thyroidectomy and she should be evaluated by ENT. In the meantime I will try to simplify her inhaled medical regimen by discontinuing her Advair and budesonide. The chart lists she has rheumatoid arthritis and She describes arthritis of the back and hands without any clear evidence of rheumatoid arthritis on her hand exam today. I will send a rheumatoid factor and anti CCP antibody. Discussed with Dr. Balderrama. Will follow with you. History of Present Illness History of Present Illness Consult date: 11/07/21 Requesting physician: Simeon Balderrama MD Reason for consult: asthma Chief complaint: Acute respiratory failure with hypoxia, hypokalemi Narrative: 11/07/2021: This is a new Pulmonary consultation for asthma 66-year-old with a history of rheumatoid arthritis, hypertension, diabetes controlled with diet, depression, anxiety, panic attacks and asthma. Patient tells me her left thyroid was removed 5-6 years ago. She does not know the final diagnosis or pathology but says she received no cancer treatment such as chemotherapy or radiation she followed up with her surgeons and they said everything was okay and is not followed up with them since then. Patient tells me that she developed panic attacks about 20 years ago and that they went away until about a year ago with a loss of a grandson. She states that currently she is having panic attacks about 2 times a day it which she begins to hyperventilate and wheeze at the same time. Patient smoked tobacco from age [age] at 1 pack per day for a total of 5 pack years. P
[2021-11-07 15:05] LABS: NT Pro B Type Natriuretic Pept 702 pg/mL (5-100)
[2021-11-07 16:19] LABS: Glucose Point of Care 125 mg/dl (65-105)
[2021-11-07] MEDS: methylPREDNISolone SOD SUCC 40 MG VIAL IV PUSH ×2 (16:56→23:53)
[2021-11-07] MEDS: HYDROcodone/acetaminophen (*CRX) 5-325 MG TABLET 1 TAB PO (20:16)
[2021-11-07] MEDS: FLUTICASONE PROPIONATE 0.05% NA SPR 16 GM BTL (*BKC) 1 SPRAY NASAL (20:16)
[2021-11-07] MEDS: MIRTAZAPINE 15 MG TABLET PO (20:17)
[2021-11-07 22:13] LABS: Glucose Point of Care 189 mg/dl (65-105)
[2021-11-08] VITALS (12 sets, daily range): BP systolic 135–147; BP diastolic 73–84; PULSE 65–83; RESP 14–20; TEMP 36.1–36.3; O2SAT 92–99
[2021-11-08] MEDS: ALBUTEROL SULFATE NEB 2.5 MG/0.5 ML INH INHALATION ×5 (00:19→20:08)
[2021-11-08] MEDS: IPRATROPIUM BR 0.02% INH SOLN 0.5 MG/2.5 ML VIAL INHALATION ×5 (00:19→20:08)
[2021-11-08] MEDS: HYDROcodone/acetaminophen (*CRX) 10-325 MG TABLET 1 TAB PO ×4 (00:25→20:02)
[2021-11-08 05:11] LABS: Basophils Percent Auto 0.1 % (0.2-1.2); Hematocrit 43.4 % (37.0-47.0); Hemoglobin 14.7 g/dL (12.0-15.0); Immature Granulocyte Absolute 0.14 K/mm3 (0.00-0.031); Immature Granulocyte Percent A 0.9 % (0-0.5); Lymphocytes Absolute Auto 1.11 K/mm3 (0.9-3.2); Lymphocytes Percent Auto 7.5 % (18.3-44.2); Mean Corpuscular HGB Conc 33.9 g/dl (32-36); Mean Corpuscular Hemoglobin 33.2 pg (26-34); Mean Platelet Volume 10.2 fl (7.4-10.4); Monocytes Absolute Auto 0.6 K/mm3 (0.1-0.6); Monocytes Percent Auto 3.8 % (2.6-8.5); Neutrophils Absolute Auto 13.1 K/mm3 (1.3-6.7); Neutrophils Percent Auto 87.7 % (45.5-73.1); Platelet Count Result 228 k/mm3 (150-375); Red Blood Count 4.43 M/mm3 (4.2-5.4); Red Cell Distribution Width 13.7 % (11.5-14.5); White Blood Count 14.9 K/mm3 (4.5-10.0)
[2021-11-08 05:24] LABS: Alanine Aminotransferase 15 U/L (4-35); Albumin Level 3.9 g/dL (3.5-5.1); Alkaline Phosphatase 43 U/L (38-126); Anion Gap 4 mmol/L (8-16); Aspartate Amino Transferase 20 U/L (14-36); Bilirubin,Total 0.3 mg/dL (0.2-1.3); Blood Urea Nitrogen 18 mg/dL (7-17); Calcium 8.6 mg/dL (8.4-10.2); Carbon Dioxide 30 mmol/L (22-30); Chloride 101 mmol/L (98-107); Estimated CRCL calculation 82 ml/min; Estimated Glomerular Filt Rate > 60; Glucose 134 mg/dL (65-110); Magnesium 2.3 mg/dL (1.6-2.3); Sodium 135 mmol/L (137-145)
[2021-11-08] MEDS: methylPREDNISolone SOD SUCC 40 MG VIAL IV PUSH ×4 (05:35→23:27)
[2021-11-08 05:58] LABS: Rheumatoid Factor < 8.6 IU/ML (<12)
[2021-11-08 07:38] LABS: Glucose Point of Care 130 mg/dl (65-105)
[2021-11-08] MEDS: FLUTICASONE PROPIONATE 0.05% NA SPR 16 GM BTL (*BKC) 1 SPRAY NASAL ×2 (09:15→20:18)
[2021-11-08] MEDS: hydrOXYzine HCL 25 MG TABLET PO (09:15)
[2021-11-08] MEDS: amLODIPine BESYLATE 5 MG TABLET 10 MG PO (09:16)
[2021-11-08] MEDS: LIDOCAINE 5% PATCH 1 PATCH TRANSDERM (09:16)
[2021-11-08] MEDS: VENLAFAXINE HCL XR 75 MG CAP.ER.24H PO (09:16)
[2021-11-08] MEDS: LORATADINE/PSEUDOEPHEDRINE (*CRX) 10/240 MG TABLET ER 24 HR 1 TAB PO (09:19)
--- NOTE | 2021-11-08 09:35 | PM.IMPN ---
Progress Note: A&P Assessment and Plan (1) Asthma exacerbation: Qualifiers: Asthma persistence: persistent Asthma severity: unspecified severity Qualified Code(s): J45.901 - Unspecified asthma with (acute) exacerbation Code(s): J45.901 - Unspecified asthma with (acute) exacerbation Status: Acute Assessment and Plan: -She has been started on scheduled bronchodilators and Solu-Medrol. -with ongoing cough and did azithromycin which also has an anti-inflammatory affect -she is hypoxic on 3L NC, not normally on home oxygen, oxygen requirement improving every day CTA ruled out PE does have mild emphysema in her lung cuello. And Advair Diskus twice a day this is been discontinued by manager of program still wheezy 11/07/2021. Pulmonary consultation. Add Pulmicort nebs scheduled discussed with Pulmonary 11/07/2021 Echocardiogram with diastolic dysfunction normal ejection fraction BNP mildly elevated in the 700s Does not look clinically hypervolemic Wheezing is improved today Continue as recommended by Pulmonary (2) Hypokalemia: Code(s): E87.6 - Hypokalemia Status: Acute Assessment and Plan: -replace and monitor (3) Acute respiratory failure with hypoxia: Code(s): J96.01 - Acute respiratory failure with hypoxia Status: Acute Assessment and Plan: -Secondary to asthma exacerbation. -Pulmonary embolism seems less likely by history however patient does note RLE pain x months CTA negative for PE Bilateral lower extremity Doppler negative for DVT as well Echo with diastolic dysfunction with normal ejection fraction (4) Weight loss, unintentional: Code(s): R63.4 - Abnormal weight loss Status: Acute Assessment and Plan: -Per patient report she has lost 210 lb in the last 1.5 years without actively trying. -She is closely followed by her primary care provider and she has apparently had both upper and lower endoscopy which were unremarkable. 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 Unclear from the scan. Outpatient PET scan would be a next step to do further delineate to see the level of uptake for possibly need for biopsy. No other mediastinal hilar axillary masses noted She is status post left thyroid lobectomy CT abdomen does not reveal any abnormal findings Thyroid ultrasound shows the right thyroid lobe nodule TR 4. Discussed biopsy of this mass/nodule sooner than later as she had lost over 200 lb over the past year and also has associated asthenia/loss of appetite all indicating possible management process however non has had identified so far except for of retromanubrial mass. Biopsy of this area a challenging if required evaluation by cardiothoracic surgeon which is currently available this facility. Will for this workup with ultrasound of the thyroid nodule at this time (5) Diet-controlled diabetes mellitus: Code(s): E11.9 - Type 2 diabetes mellitus without complications Status: Acute Assessment and Plan: -No longer on medication after her weight loss. -Initiate sliding scale insulin and monitor Accu-Cheks as she is currently receiving steroids. -hemoglobin A1c 4.7 (6) Hypertension: Code(s): I10 - Essential (primary) hypertension Status: Acute Assessment and Plan: -Blood pressures were reviewed and they are stable. -Continue antihypertensives and monitor daily. (7) Fall down steps: Qualifiers: Encounter type: initial encounter Qualified Code(s): W10.8XXA - Fall (on) (from) other stairs and steps, initial encounter Code(s): W10.8XXA - Fall (on) (from) other stairs and steps, initial encounter Status: Acute Assessme
--- NOTE | 2021-11-08 11:14 | PM.PNPUL ---
Progress Note: A&P Assessment and Plan (1) Asthma exacerbation: Qualifiers: Asthma persistence: persistent Asthma severity: unspecified severity Qualified Code(s): J45.901 - Unspecified asthma with (acute) exacerbation Code(s): J45.901 - Unspecified asthma with (acute) exacerbation Status: Acute Assessment and Plan: 66-year-old female with history of asthma presented with shortness of breath hypoxemia and wheezing, all related to asthma flare up. Patient seems to be responding to current treatment consisting of IV steroids, and nebulized short-acting bronchodilators. Will continue with current dose of Solu-Medrol for today, Continue with short-acting bronchodilators. Consider adding subQ heparin for DVT prophylaxis. Out of bed to chair. (2) Acute respiratory failure with hypoxia: Code(s): J96.01 - Acute respiratory failure with hypoxia Status: Acute (3) Weight loss, unintentional: Code(s): R63.4 - Abnormal weight loss Status: Acute (4) Depression with anxiety: Code(s): F41.8 - Other specified anxiety disorders Status: Acute (5) Hoarseness: Code(s): R49.0 - Dysphonia Status: Acute Subjective Date/time seen: 11/08/21 11:14 66-year-old female with history of asthma for approximately 5 years on maintenance bronchodilators with no history of previous asthma exacerbations, presented with several week history of cough and wheezing for which the patient was using a rescue albuterol inhaler twice daily. Patient was diagnosed with asthma exacerbation and has been on treatment with IV steroids and short-acting bronchodilators. Initial chest CT showed no lung infiltrates no evidence of pulmonary embolism. The patient has significantly improved over the last 24 hours. Currently she is on 1 L supplemental oxygen, has less wheezing, a coughing more than before. She has no other respiratory complaints. Review of Systems Review of Systems: All systems reviewed & are unremarkable except as noted in HPI and below Exam Const: Other: GENERAL APPEARANCE: Well developed, well nourished, alert and cooperative, and appears to be in no acute distress while on supplemental oxygen via nasal cannula SKIN: Inspection of the skin reveals no rashes, ulcerations or petechiae. HEENT: Sclerae anicteric and conjunctivae pink and moist. Extraocular movements were intact and pupils were equal, round. NECK: Supple. There was no thyroid enlargement, and no tenderness, or masses were felt. CHEST: Normal AP diameter and normal contour without any kyphoscoliosis. LUNGS: Auscultation of the lungs revealed mild expiratory wheezing bilaterally. rare inspiratory crackles at bases CARDIAC: There was a regular rate and rhythm without any murmurs, gallops, rubs. ABDOMEN: Soft and nontender with normal bowel sounds. There was no organomegaly. LYMPH NODES: No lymphadenopathy was appreciated in the neck. EXTREMITIES: No cyanosis, clubbing or edema. NEUROLOGIC: Alert and oriented x 3. Normal affect. Objective Data Vital Signs Vital Signs: Vital Signs - 24 hr 11/07/21 13:24 11/07/21 13:32 11/07/21 15:15 Temperature 36.6 C Pulse Rate 74 76 90 Respiratory Rate 18 18 16 Blood Pressure 124/63 Pulse Oximetry 94 93 11/07/21 20:00 11/07/21 20:11 11/07/21 22:00 Temperature 36.2 C L Pulse Rate 78 78 80 Respiratory Rate 18 18 21 H Blood Pressure 140/70 Pulse Oximetry 97 100 11/08/21 00:20 11/08/21 00:26 11/08/21 06:00 Temperature 36.3 C L Pulse Rate 75 75 65 Respiratory Rate 18 18 20 Blood Pressure 147/84 H Pulse Oximetry 99 11/08/21 08:05 11/08/21 08:10 11/08/21 08:12 Temperature Pulse Rate 74 76 Respiratory Rate 18 18 Blood Pressure Pulse Oximetry 94 Intake/Output Intake/Output: Intake & Output 11/05/21 11/06/21 11/07/21 11/08/21 23:59 23:59 23:59 23:59 Intake Total 870 1390 1800 650 Output Total 200 300 550 Balance 670 1090 1
[2021-11-08 11:52] LABS: Glucose Point of Care 122 mg/dl (65-105)
[2021-11-08 16:19] LABS: Glucose Point of Care 176 mg/dl (65-105)
[2021-11-08] MEDS: MIRTAZAPINE 15 MG TABLET PO (20:03)
[2021-11-08 21:26] LABS: Glucose Point of Care 135 mg/dl (65-105)
[2021-11-09] VITALS (13 sets, daily range): BP systolic 114–145; BP diastolic 57–77; PULSE 68–92; RESP 16–21; TEMP 36.2–36.4; O2SAT 95–100
[2021-11-09] MEDS: ALBUTEROL SULFATE NEB 2.5 MG/0.5 ML INH INHALATION ×5 (00:01→23:56)
[2021-11-09] MEDS: IPRATROPIUM BR 0.02% INH SOLN 0.5 MG/2.5 ML VIAL INHALATION ×4 (00:01→23:56)
--- NOTE | 2021-11-09 03:20 | PC.NURSE ---
Daylight Savings Time For Daylight Savings Time Ending in the Fall - Clocks are moved back. For Daylight Savings Time Beginning in the Spring - Clocks are moved ahead. For [facility], the time of change occurs at 0200 hrs. Time is taken from the water server. This entry on the patient's chart recognizes the change in time reflected during documentation. Example: 2 entries for vital signs may be charted for 0200 hrs.
[2021-11-09 05:09] LABS: Hematocrit 44.4 % (37.0-47.0); Hemoglobin 15.2 g/dL (12.0-15.0); Mean Corpuscular HGB Conc 34.2 g/dl (32-36); Mean Corpuscular Hemoglobin 33.2 pg (26-34); Mean Corpuscular Volume 96.9 fl (80-100); Platelet Count Result 236 k/mm3 (150-375); Red Blood Count 4.58 M/mm3 (4.2-5.4); Red Cell Distribution Width 13.5 % (11.5-14.5); White Blood Count 15.1 K/mm3 (4.5-10.0)
[2021-11-09 05:21] LABS: Anion Gap 4 mmol/L (8-16); Blood Urea Nitrogen 16 mg/dL (7-17); Calcium 8.7 mg/dL (8.4-10.2); Carbon Dioxide 30 mmol/L (22-30); Chloride 102 mmol/L (98-107); Estimated CRCL calculation 81 ml/min; Estimated Glomerular Filt Rate > 60; Glucose 130 mg/dL (65-110); Sodium 136 mmol/L (137-145)
[2021-11-09] MEDS: HYDROcodone/acetaminophen (*CRX) 10-325 MG TABLET 1 TAB PO ×3 (05:27→20:00)
[2021-11-09] MEDS: methylPREDNISolone SOD SUCC 40 MG VIAL IV PUSH (05:28)
[2021-11-09 07:27] LABS: Glucose Point of Care 137 mg/dl (65-105)
[2021-11-09] MEDS: LIDOCAINE 5% PATCH 1 PATCH TRANSDERM (09:13)
[2021-11-09] MEDS: FLUTICASONE PROPIONATE 0.05% NA SPR 16 GM BTL (*BKC) 1 SPRAY NASAL ×2 (09:13→19:59)
[2021-11-09] MEDS: VENLAFAXINE HCL XR 75 MG CAP.ER.24H PO (09:13)
[2021-11-09] MEDS: LORATADINE/PSEUDOEPHEDRINE (*CRX) 10/240 MG TABLET ER 24 HR 1 TAB PO (09:13)
[2021-11-09] MEDS: ENOXAPARIN 40 MG/0.4 ML SYRINGE SUB-Q (09:13)
[2021-11-09] MEDS: hydrOXYzine HCL 25 MG TABLET PO (09:13)
[2021-11-09] MEDS: amLODIPine BESYLATE 5 MG TABLET 10 MG PO (09:14)
--- NOTE | 2021-11-09 09:53 | PM.PNPUL ---
Progress Note: A&P Assessment and Plan (1) Asthma exacerbation: Qualifiers: Asthma persistence: persistent Asthma severity: unspecified severity Qualified Code(s): J45.901 - Unspecified asthma with (acute) exacerbation Code(s): J45.901 - Unspecified asthma with (acute) exacerbation Status: Acute Assessment and Plan: 66-year-old female with history of asthma presented with shortness of breath hypoxemia and wheezing, all related to asthma flare up. Patient seems to be responding to current treatment consisting of IV steroids, and nebulized short-acting bronchodilators. Will decrease Solu-Medrol to 60 mg BID today. Continue with short-acting bronchodilators. Patient was started on subQ prophylaxis for DVT. Out of bed to chair. (2) Acute respiratory failure with hypoxia: Code(s): J96.01 - Acute respiratory failure with hypoxia Status: Acute (3) Weight loss, unintentional: Code(s): R63.4 - Abnormal weight loss Status: Acute (4) Depression with anxiety: Code(s): F41.8 - Other specified anxiety disorders Status: Acute (5) Hoarseness: Code(s): R49.0 - Dysphonia Status: Acute Subjective Date/time seen: 11/09/21 09:53 Patient stated her breathing is getting better. Had wheezing and cough last night with no sputum production. no other respiratory symptoms. Oxygen flow decreased down to 1 liter/minute. Review of Systems Review of Systems: All systems reviewed & are unremarkable except as noted in HPI and below Exam Const: Other: GENERAL APPEARANCE: Well developed, well nourished, alert and cooperative, and appears to be in no acute distress SKIN: Inspection of the skin reveals no rashes, ulcerations or petechiae. HEENT: Sclerae anicteric and conjunctivae pink and moist. Extraocular movements were intact and pupils were equal, round. NECK: Supple. There was no thyroid enlargement, and no tenderness, or masses were felt. CHEST: Normal AP diameter and normal contour without any kyphoscoliosis. LUNGS: Auscultation of the lungs revealed distant breath sounds with expiratory wheezing. CARDIAC: There was a regular rate and rhythm without any murmurs. ABDOMEN: Soft and nontender with normal bowel sounds. There was no organomegaly. LYMPH NODES: No lymphadenopathy was appreciated in the neck. EXTREMITIES: No cyanosis, clubbing or edema. NEUROLOGIC: Alert and oriented x 3. Normal affect. Objective Data Vital Signs Vital Signs: Vital Signs - 24 hr 11/08/21 11:31 11/08/21 14:02 11/08/21 20:11 Temperature 36.1 C L Pulse Rate 75 75 77 Respiratory Rate 18 14 16 Blood Pressure 135/73 Pulse Oximetry 99 11/08/21 20:12 11/08/21 20:17 11/08/21 22:00 Temperature 36.1 C L Pulse Rate 78 83 Respiratory Rate 16 20 Blood Pressure 140/80 Pulse Oximetry 92 98 11/09/21 00:01 11/09/21 00:10 11/09/21 06:00 Temperature 36.2 C L Pulse Rate 74 76 76 Respiratory Rate 18 18 21 H Blood Pressure 145/77 H Pulse Oximetry 100 11/09/21 09:11 Temperature Pulse Rate 68 Respiratory Rate 18 Blood Pressure 128/57 L Pulse Oximetry 100 Intake/Output Intake/Output: Intake & Output 11/06/21 11/07/21 11/08/21 11/10/21 23:59 23:59 23:59 00:59 Intake Total 1390 1800 1070 400 Output Total 300 550 Balance 1090 1250 1070 400 Meds/Results Medications: Active Medications Generic Name Dose Route Start Last Admin Trade Name Freq PRN Reason Stop Dose Admin Acetaminophen 650 mg 11/04/21 23:14 11/05/21 08:12 Acetaminophen 325 Mg Tablet PO 650 mg Q4H PRN Administration Headache Hydrocodone Bitart/Acetaminophen 1 tab 11/06/21 08:55 11/07/21 20:16 Hydrocodone/Acetaminophen (*Crx) 5-325 Mg Tablet PO 1 tab Q6H PRN Administration Pain Rated 4-6 Hydrocodone Bitart/Acetaminophen 1 tab 11/06/21 08:55 11/09/21 05:27 Hydrocodone/Acetaminophen (*Crx) 10-325 Mg Tablet PO 1 tab Q6H PRN Administration
[2021-11-09 11:17] LABS: Glucose Point of Care 129 mg/dl (65-105)
--- NOTE | 2021-11-09 11:35 | PCRCNOTE ---
Missed 0800 tx due to pt sleeping, car shifter RT stated pt did not want to be disturbed when asleep.
--- NOTE | 2021-11-09 12:07 | P.PNIM_ITS ---
Progress Note: A&P Assessment and Plan (1) Asthma exacerbation: Qualifiers: Asthma persistence: persistent Asthma severity: unspecified severity Qualified Code(s): J45.901 - Unspecified asthma with (acute) exacerbation Code(s): J45.901 - Unspecified asthma with (acute) exacerbation Status: Acute Assessment and Plan: - Continue scheduled bronchodilators and Solu-Medrol. - Continue azithromycin which also has an anti-inflammatory affect - Continue Supplemental oxygen, currently requiring 2L that she does not need at home. - CTA ruled out PE does have mild emphysema in her lung cuello. - And Advair Diskus twice a day this is been discontinued by first responder - Pulmonary consultation and recommendations were given to add Pulmicort nebs scheduled discussed with Pulmonary 11/07/2021 - Echocardiogram with diastolic dysfunction normal ejection fraction BNP mildly elevated in the 700s - Does not look clinically hypervolemic - Continue as recommended by Pulmonary (2) Hypokalemia: Code(s): E87.6 - Hypokalemia Status: Resolved Assessment and Plan: - RESOLVED 4.0 (3) Acute respiratory failure with hypoxia: Code(s): J96.01 - Acute respiratory failure with hypoxia Status: Acute Assessment and Plan: -Secondary to asthma exacerbation. - CTA negative for PE - Bilateral lower extremity Doppler negative for DVT as well - Echo with diastolic dysfunction with normal ejection fraction - Pt. appears Euvolemic (4) Weight loss, unintentional: Code(s): R63.4 - Abnormal weight loss Status: Acute Assessment and Plan: -Per patient report she has lost 210 lb in the last 1.5 years without actively trying. -She is closely followed by her primary care provider and she has apparently had both upper and lower endoscopy which were unremarkable. 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 Unclear from the scan. Outpatient PET scan would be a next step to do further delineate to see the level of uptake for possibly need for biopsy. No other mediastinal hilar axillary masses noted - She is status post left thyroid lobectomy - CT abdomen does not reveal any abnormal findings - Thyroid ultrasound shows the right thyroid lobe nodule TR 4. Discussed biopsy of this mass/nodule sooner than later as she had lost over 200 lb over the past year and also has associated asthenia/loss of appetite all indicating possible management process however non has had identified so far except for of retromanubrial mass. Biopsy of this area a challenging if required evaluation by cardiothoracic surgeon which is currently available this facility. - Biopsy of thyroid tomorrow. Holding Lovenox. (5) Diet-controlled diabetes mellitus: Code(s): E11.9 - Type 2 diabetes mellitus without complications Status: Acute Assessment and Plan: -No longer on medication after her weight loss. -Initiate sliding scale insulin and monitor Accu-Cheks as she is currently receiving steroids. -hemoglobin A1c 4.7 (6) Hypertension: Qualifiers: Hypertension type: unspecified Qualified Code(s): I10 - Essential (primary) hypertension Code(s): I10 - Essential (primary) hypertension Status: Acute Assessment and Plan: -Blood pressures were reviewed and
[2021-11-09 16:33] LABS: Glucose Point of Care 114 mg/dl (65-105)
--- NOTE | 2021-11-09 16:41 | PCPTNOTE ---
Attempted to see patient for Physical Therapy session; patient declined at this time stating she doesn't feel well. Patient did walk from the bed<->bathroom independently. Per nursing staff, patient has been up independently yesterday and today.
[2021-11-09] MEDS: methylPREDNISolone SOD SUCC 125 MG VIAL 60 MG IV PUSH (17:50)
[2021-11-09] MEDS: MIRTAZAPINE 15 MG TABLET PO (19:59)
[2021-11-09 20:35] LABS: Glucose Point of Care 122 mg/dl (65-105)
[2021-11-10] VITALS (12 sets, daily range): BP systolic 126–137; BP diastolic 66–85; PULSE 56–91; RESP 18–20; TEMP 36.6–36.8; O2SAT 95–99
[2021-11-10] MEDS: HYDROcodone/acetaminophen (*CRX) 10-325 MG TABLET 1 TAB PO ×3 (05:15→18:30)
[2021-11-10] MEDS: methylPREDNISolone SOD SUCC 125 MG VIAL 60 MG IV PUSH ×2 (05:18→17:11)
[2021-11-10 05:36] LABS: Basophils Percent Auto 0.3 % (0.2-1.2); Hematocrit 43.9 % (37.0-47.0); Hemoglobin 14.9 g/dL (12.0-15.0); Immature Granulocyte Absolute 0.19 K/mm3 (0.00-0.031); Immature Granulocyte Percent A 1.2 % (0-0.5); Lymphocytes Absolute Auto 1.79 K/mm3 (0.9-3.2); Lymphocytes Percent Auto 11.3 % (18.3-44.2); Mean Corpuscular HGB Conc 33.9 g/dl (32-36); Mean Corpuscular Hemoglobin 32.6 pg (26-34); Mean Corpuscular Volume 96.1 fl (80-100); Mean Platelet Volume 9.7 fl (7.4-10.4); Monocytes Absolute Auto 1.2 K/mm3 (0.1-0.6); Monocytes Percent Auto 7.7 % (2.6-8.5); Neutrophils Absolute Auto 12.5 K/mm3 (1.3-6.7); Neutrophils Percent Auto 79.5 % (45.5-73.1); Platelet Count Result 240 k/mm3 (150-375); Red Blood Count 4.57 M/mm3 (4.2-5.4); Red Cell Distribution Width 13.1 % (11.5-14.5); White Blood Count 15.8 K/mm3 (4.5-10.0)
[2021-11-10 05:53] LABS: Alanine Aminotransferase 24 U/L (4-35); Albumin Level 3.6 g/dL (3.5-5.1); Alkaline Phosphatase 39 U/L (38-126); Anion Gap 2 mmol/L (8-16); Aspartate Amino Transferase 23 U/L (14-36); Bilirubin,Total 0.3 mg/dL (0.2-1.3); Blood Urea Nitrogen 20 mg/dL (7-17); Calcium 8.1 mg/dL (8.4-10.2); Carbon Dioxide 31 mmol/L (22-30); Chloride 103 mmol/L (98-107); Estimated CRCL calculation 71 ml/min; Estimated Glomerular Filt Rate > 60; Glucose 115 mg/dL (65-110); Magnesium 2.2 mg/dL (1.6-2.3); Potassium 3.7 mmol/L (3.4-5.0); Sodium 136 mmol/L (137-145)
[2021-11-10 07:36] LABS: Glucose Point of Care 119 mg/dl (65-105)
[2021-11-10] MEDS: LORATADINE/PSEUDOEPHEDRINE (*CRX) 10/240 MG TABLET ER 24 HR 1 TAB PO (08:47)
[2021-11-10] MEDS: LIDOCAINE 5% PATCH 1 PATCH TRANSDERM (08:47)
[2021-11-10] MEDS: FLUTICASONE PROPIONATE 0.05% NA SPR 16 GM BTL (*BKC) 1 SPRAY NASAL ×2 (08:47→20:57)
[2021-11-10] MEDS: VENLAFAXINE HCL XR 75 MG CAP.ER.24H PO (08:47)
[2021-11-10] MEDS: amLODIPine BESYLATE 5 MG TABLET 10 MG PO (08:47)
[2021-11-10] MEDS: hydrOXYzine HCL 25 MG TABLET PO (08:47)
--- NOTE | 2021-11-10 09:19 | PM.PNPUL ---
Progress Note: A&P Assessment and Plan (1) Asthma exacerbation: Qualifiers: Asthma persistence: persistent Asthma severity: unspecified severity Qualified Code(s): J45.901 - Unspecified asthma with (acute) exacerbation Code(s): J45.901 - Unspecified asthma with (acute) exacerbation Status: Acute Assessment and Plan: 66-year-old female with history of asthma presented with shortness of breath hypoxemia and wheezing, all related to asthma flare up. Patient seems to be responding to current treatment consisting of IV steroids, and nebulized short-acting bronchodilators. Will continue Solu-Medrol to 60 mg BID. Continue with short-acting bronchodilators. Patient was started on subQ prophylaxis for DVT. Out of bed to chair. (2) Acute respiratory failure with hypoxia: Code(s): J96.01 - Acute respiratory failure with hypoxia Status: Acute (3) Weight loss, unintentional: Code(s): R63.4 - Abnormal weight loss Status: Acute (4) Depression with anxiety: Code(s): F41.8 - Other specified anxiety disorders Status: Acute (5) Hoarseness: Code(s): R49.0 - Dysphonia Status: Acute Subjective Date/time seen: 11/10/21 09:19 patient continues to have mild dry cough. Less wheezing. She still on supplemental oxygen at low-flow. No new respiratory complaints. Overall clinical condition has improved Review of Systems Review of Systems: All systems reviewed & are unremarkable except as noted in HPI and below Exam Const: Other: GENERAL APPEARANCE: Well developed, well nourished, alert and cooperative, and appears to be in no acute distress while receiving oxygen via nasal cannula. SKIN: Inspection of the skin reveals no rashes, ulcerations or petechiae. HEENT: Sclerae anicteric and conjunctivae pink and moist. Extraocular movements were intact and pupils were equal, round. NECK: Supple. There was no thyroid enlargement, and no tenderness, or masses were felt. CHEST: Normal AP diameter and normal contour without any kyphoscoliosis. LUNGS: Auscultation of the lungs revealed distant breath sounds with mild expiratory wheezing. CARDIAC: There was a regular rate and rhythm without any murmurs. ABDOMEN: Soft and nontender with normal bowel sounds. There was no organomegaly. LYMPH NODES: No lymphadenopathy was appreciated in the neck. EXTREMITIES: No cyanosis, clubbing or edema. NEUROLOGIC: Alert and oriented x 3. Normal affect. Objective Data Vital Signs Vital Signs: Vital Signs - 24 hr 11/09/21 11:25 11/09/21 11:33 11/09/21 13:45 Temperature 36.3 C L Pulse Rate 83 80 81 Respiratory Rate 18 18 16 Blood Pressure 114/57 L Pulse Oximetry 97 97 96 11/09/21 14:55 11/09/21 15:12 11/09/21 19:46 Temperature Pulse Rate 81 82 88 Respiratory Rate 18 18 16 Blood Pressure Pulse Oximetry 95 11/09/21 19:54 11/09/21 20:00 11/09/21 20:02 Temperature 36.4 C Pulse Rate 90 92 92 Respiratory Rate 16 18 18 Blood Pressure 138/62 Pulse Oximetry 98 98 11/10/21 00:00 11/10/21 00:09 11/10/21 04:58 Temperature 36.6 C Pulse Rate 74 75 56 L Respiratory Rate 18 18 20 Blood Pressure 132/85 Pulse Oximetry 99 Intake/Output Intake/Output: Intake & Output 11/07/21 11/08/21 11/09/21 11/10/21 22:59 22:59 23:59 23:59 Intake Total 150 Output Total Balance 150 Meds/Results Medications: Active Medications Generic Name Dose Route Start Last Admin Trade Name Freq PRN Reason Stop Dose Admin Acetaminophen 650 mg 11/04/21 23:14 11/05/21 08:12 Acetaminophen 325 Mg Tablet PO 650 mg Q4H PRN Administration Headache Hydrocodone Bitart/Acetaminophen 1 tab 11/06/21 08:55 11/07/21 20:16 Hydrocodone/Acetaminophen (*Crx) 5-325 Mg Tablet PO 1 tab Q6H PRN Administration Pain Rated 4-6 Hydrocodone Bitart/Acetaminophen 1 tab 11/06/21 08:55 11/10/21 05:15 Hydrocodone/Acetaminophen (*Crx) 10-325 Mg Tab
[2021-11-10] MEDS: ALBUTEROL SULFATE NEB 2.5 MG/0.5 ML INH INHALATION ×4 (09:40→20:03)
[2021-11-10] MEDS: IPRATROPIUM BR 0.02% INH SOLN 0.5 MG/2.5 ML VIAL INHALATION ×4 (09:41→20:02)
--- NOTE | 2021-11-10 09:50 | PCNFU ---
Nutrition Follow-Up Complete: Unintended weight loss as related to partial thyroidectomy as evidenced by greater than 20% weight loss in 1 year. Goal: Adequate intake of at least 75% of meals/supplements Patient has limited progress towards goal. We will continue current goal. Pt current nutrition is Heart Healthy with Ensure compact BID. Last recorded weight is 83 kg-stable Bowel Motility:No BM reported. Labs Reviewed: Na 136, BUN 20, Glu 115 Meds Noted:Remeron, Solu Medrol, Effexor, Atrovent, Albuterol Skin: WNL Additional Notes: Nutrition follow up. Patient states to no oral intake for breakfast. Most meals have been refused. She is drinking water, pepsi and coffee. Refusing diet supplements. She did agree to ensure shake today mixed with ice cream. Plans for thyroid biopsy today. PO intake encouraged. Agree with diet orders. Monitoring: Will monitor every 3 days.
[2021-11-10 11:42] LABS: Glucose Point of Care 131 mg/dl (65-105)
--- NOTE | 2021-11-10 11:59 | PM.IMPN ---
Progress Note: A&P Assessment and Plan (1) Asthma exacerbation: Qualifiers: Asthma persistence: persistent Asthma severity: unspecified severity Qualified Code(s): J45.901 - Unspecified asthma with (acute) exacerbation Code(s): J45.901 - Unspecified asthma with (acute) exacerbation Status: Acute Assessment and Plan: - Continue scheduled bronchodilators and Solu-Medrol. - Continue azithromycin which also has an anti-inflammatory affect - Continue Supplemental oxygen, currently requiring 2L that she does not need at home. - CTA ruled out PE does have mild emphysema in her lung cuello. - And Advair Diskus twice a day this is been discontinued by associate account manager - Pulmonary consultation and recommendations were given to add Pulmicort nebs scheduled discussed with Pulmonary 11/07/2021 - Echocardiogram with diastolic dysfunction normal ejection fraction BNP mildly elevated in the 700s - Does not look clinically hypervolemic - Continue as recommended by Pulmonary (2) Hypokalemia: Code(s): E87.6 - Hypokalemia Status: Resolved Assessment and Plan: - RESOLVED 4.0 (3) Acute respiratory failure with hypoxia: Code(s): J96.01 - Acute respiratory failure with hypoxia Status: Acute Assessment and Plan: -Secondary to asthma exacerbation. - CTA negative for PE - Bilateral lower extremity Doppler negative for DVT as well - Echo with diastolic dysfunction with normal ejection fraction - Pt. appears Euvolemic (4) Weight loss, unintentional: Code(s): R63.4 - Abnormal weight loss Status: Acute Assessment and Plan: -Per patient report she has lost 210 lb in the last 1.5 years without actively trying. -She is closely followed by her primary care provider and she has apparently had both upper and lower endoscopy which were unremarkable. 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 Unclear from the scan. Outpatient PET scan would be a next step to do further delineate to see the level of uptake for possibly need for biopsy. No other mediastinal hilar axillary masses noted - She is status post left thyroid lobectomy - CT abdomen does not reveal any abnormal findings - Thyroid ultrasound shows the right thyroid lobe nodule TR 4. Discussed biopsy of this mass/nodule sooner than later as she had lost over 200 lb over the past year and also has associated asthenia/loss of appetite all indicating possible management process however non has had identified so far except for of retromanubrial mass. Biopsy of this area a challenging if required evaluation by cardiothoracic surgeon which is currently available this facility. - Biopsy of thyroid tomorrow. Holding Lovenox. (5) Diet-controlled diabetes mellitus: Code(s): E11.9 - Type 2 diabetes mellitus without complications Status: Acute Assessment and Plan: -No longer on medication after her weight loss. -Initiate sliding scale insulin and monitor Accu-Cheks as she is currently receiving steroids. -hemoglobin A1c 4.7 (6) Hypertension: Qualifiers: Hypertension type: unspecified Qualified Code(s): I10 - Essential (primary) hypertension Code(s): I10 - Essential (primary) hypertension Status: Acute Assessment and Plan: -Blood pressures were reviewed and they are stable. -Continue antihypertensives and monitor daily. (7) Fall down steps: Qualifiers: Encounter type: initial encounter Qualified Code(s): W10.8XXA - Fall (on) (from) other stairs and steps, initial encounter Code(s): W10.8XXA - Fall (on) (from) other stairs and steps, initial encounter Status: Acute Assessment and Plan:
[2021-11-10 16:25] LABS: Glucose Point of Care 96 mg/dl (65-105)
[2021-11-10] MEDS: MIRTAZAPINE 15 MG TABLET PO (20:57)
[2021-11-10 21:07] LABS: Glucose Point of Care 172 mg/dl (65-105)
[2021-11-11] VITALS (9 sets, daily range): BP systolic 111–155; BP diastolic 53–79; PULSE 77–114; RESP 16–18; TEMP 36.5; O2SAT 93–100
[2021-11-11] MEDS: HYDROcodone/acetaminophen (*CRX) 10-325 MG TABLET 1 TAB PO ×2 (03:57→10:15)
[2021-11-11 05:54] LABS: Basophils Percent Auto 0.2 % (0.2-1.2); Hematocrit 46.6 % (37.0-47.0); Hemoglobin 15.3 g/dL (12.0-15.0); Immature Granulocyte Absolute 0.15 K/mm3 (0.00-0.031); Lymphocytes Absolute Auto 1.52 K/mm3 (0.9-3.2); Lymphocytes Percent Auto 10.3 % (18.3-44.2); Mean Corpuscular HGB Conc 32.8 g/dl (32-36); Mean Corpuscular Hemoglobin 32.6 pg (26-34); Mean Corpuscular Volume 99.1 fl (80-100); Mean Platelet Volume 9.9 fl (7.4-10.4); Monocytes Percent Auto 6.6 % (2.6-8.5); Neutrophils Absolute Auto 12.1 K/mm3 (1.3-6.7); Neutrophils Percent Auto 81.9 % (45.5-73.1); Platelet Count Result 237 k/mm3 (150-375); Red Cell Distribution Width 13.2 % (11.5-14.5); White Blood Count 14.7 K/mm3 (4.5-10.0)
[2021-11-11] MEDS: methylPREDNISolone SOD SUCC 125 MG VIAL 60 MG IV PUSH (06:03)
[2021-11-11 06:07] LABS: Alanine Aminotransferase 22 U/L (4-35); Albumin Level 3.6 g/dL (3.5-5.1); Alkaline Phosphatase 40 U/L (38-126); Anion Gap 2 mmol/L (8-16); Aspartate Amino Transferase 19 U/L (14-36); Bilirubin,Total 0.4 mg/dL (0.2-1.3); Blood Urea Nitrogen 18 mg/dL (7-17); Calcium 8.4 mg/dL (8.4-10.2); Carbon Dioxide 32 mmol/L (22-30); Chloride 103 mmol/L (98-107); Estimated CRCL calculation 82 ml/min; Estimated Glomerular Filt Rate > 60; Glucose 117 mg/dL (65-110); Magnesium 2.2 mg/dL (1.6-2.3); Potassium 3.8 mmol/L (3.4-5.0); Sodium 137 mmol/L (137-145)
[2021-11-11 07:41] LABS: Glucose Point of Care 111 mg/dl (65-105)
[2021-11-11] MEDS: LIDOCAINE 5% PATCH 1 PATCH TRANSDERM (08:41)
[2021-11-11] MEDS: LORATADINE/PSEUDOEPHEDRINE (*CRX) 10/240 MG TABLET ER 24 HR 1 TAB PO (08:41)
[2021-11-11] MEDS: VENLAFAXINE HCL XR 75 MG CAP.ER.24H PO (08:41)
[2021-11-11] MEDS: hydrOXYzine HCL 25 MG TABLET PO (08:41)
[2021-11-11] MEDS: FLUTICASONE PROPIONATE 0.05% NA SPR 16 GM BTL (*BKC) 1 SPRAY NASAL (08:41)
[2021-11-11] MEDS: amLODIPine BESYLATE 5 MG TABLET 10 MG PO (08:41)
--- NOTE | 2021-11-11 09:06 | PM.PNPUL ---
Progress Note: A&P Assessment and Plan (1) Asthma exacerbation: Qualifiers: Asthma persistence: persistent Asthma severity: unspecified severity Qualified Code(s): J45.901 - Unspecified asthma with (acute) exacerbation Code(s): J45.901 - Unspecified asthma with (acute) exacerbation Status: Acute Assessment and Plan: 66-year-old female with history of asthma presented with shortness of breath hypoxemia and wheezing, all related to asthma flare up. Patient Has significantly improved following treatment with IV steroids, and nebulized short-acting bronchodilators. On physical exam there is significant improvement of auscultatory findings. She has only minimal expiratory wheeze today. I would discharge patient home on a regimen consisting of Advair 500/50, 1 puff twice daily and albuterol inhaler 2 puffs q.i.d. p.r.n.. She will continue with a tapering dose of oral steroids starting prednisone 40 mg p.o. daily for 4 days, followed by 30 mg daily for 4 days, then 25 mg daily for 4 days, than 20 mg daily for 4 days, than 15 mg daily for 4 days, then 10 mg daily for 4 days, then 5 mg every other day for 8 days, then stop. patient will need follow-up with Pulmonary Services in approximately 2-3 weeks from today. She will need workup with pulmonary function testing and also referral to thoracic surgery regarding anterior mediastinal mass. (2) Acute respiratory failure with hypoxia: Code(s): J96.01 - Acute respiratory failure with hypoxia Status: Acute (3) Weight loss, unintentional: Code(s): R63.4 - Abnormal weight loss Status: Acute (4) Depression with anxiety: Code(s): F41.8 - Other specified anxiety disorders Status: Acute (5) Hoarseness: Code(s): R49.0 - Dysphonia Status: Acute Subjective Date/time seen: 11/11/21 09:06 Patient stated she is doing better. Mild cough, no wheezing. No other new respiratory issues. Currently breathing ambient air Review of Systems Review of Systems: All systems reviewed & are unremarkable except as noted in HPI and below Exam Const: Other: GENERAL APPEARANCE: Well developed, well nourished, alert and cooperative, and appears to be in no acute distress while receiving oxygen via nasal cannula. SKIN: Inspection of the skin reveals no rashes, ulcerations or petechiae. HEENT: Sclerae anicteric and conjunctivae pink and moist. Extraocular movements were intact and pupils were equal, round. NECK: Supple. There was no thyroid enlargement, and no tenderness, or masses were felt. CHEST: Normal AP diameter and normal contour without any kyphoscoliosis. LUNGS: Auscultation of the lungs revealed distant breath sounds with mild expiratory wheezing. CARDIAC: There was a regular rate and rhythm without any murmurs. ABDOMEN: Soft and nontender with normal bowel sounds. There was no organomegaly. LYMPH NODES: No lymphadenopathy was appreciated in the neck. EXTREMITIES: No cyanosis, clubbing or edema. NEUROLOGIC: Alert and oriented x 3. Normal affect. Objective Data Vital Signs Vital Signs: Vital Signs - 24 hr 11/10/21 12:45 11/10/21 12:55 11/10/21 13:03 Temperature Pulse Rate 75 77 Respiratory Rate 18 18 Blood Pressure Pulse Oximetry 95 11/10/21 14:00 11/10/21 20:03 11/10/21 20:06 Temperature 36.8 C 36.6 C Pulse Rate 91 90 90 Respiratory Rate 18 18 Blood Pressure 126/66 137/73 Pulse Oximetry 98 96 96 11/10/21 20:09 11/10/21 21:00 11/11/21 04:00 Temperature 36.5 C Pulse Rate 85 86 Respiratory Rate 18 16 Blood Pressure 111/53 L Pulse Oximetry 96 100 11/11/21 08:32 Temperature Pulse Rate Respiratory Rate Blood Pressure 155/79 H Pulse Oximetry Intake/Output Intake/Output: Intake & Output 11/08/21 11/09/21 11/10/21 11/11/21 22:59 23:59 23:59 23:59 Intake Total 330 390 Balance 330 390 Meds/Results Medications: Active Medications Generic Name Dose Route Sta
--- NOTE | 2021-11-11 10:36 | PC.NURSE ---
On 11/11/21 [facility] nursing program director Catalina Do[facility] I have reviewed and agree with the students documentation.
[2021-11-11 11:26] LABS: Glucose Point of Care 120 mg/dl (65-105)
[2021-11-11] MEDS: ALBUTEROL SULFATE NEB 2.5 MG/0.5 ML INH INHALATION (11:37)
[2021-11-11] MEDS: IPRATROPIUM BR 0.02% INH SOLN 0.5 MG/2.5 ML VIAL INHALATION (11:37)
--- NOTE | 2021-11-11 12:14 | PM.DS ---
DS: Admitting Diagnosis Discharge Date 11/11/2021 Admitting Diagnosis shortness of breath DS: Discharge Diagnosis Discharge Diagnosis (1) Asthma exacerbation: Qualifiers: Asthma persistence: persistent Asthma severity: unspecified severity Qualified Code(s): J45.901 - Unspecified asthma with (acute) exacerbation Code(s): J45.901 - Unspecified asthma with (acute) exacerbation Status: Acute Assessment and Plan: - Continue scheduled bronchodilators and started on Solu-Medrol. - Continue azithromycin which also has an anti-inflammatory affect which was discontinued after finishing the course - she was started on Supplemental oxygen, and continued to improve during the hospital stay and was off oxygen by the time of discharge. Home oxygen evaluation was done to ensure she did not require oxygen with ambulation. - CTA ruled out PE does have mild emphysema in her lung cuello. Her Advair discuss that she takes at home was increased in dose to 500/50 at the time of discharge as per Pulmonary recommendation pulmonary was also consulted during the hospital stay and managed for her asthma exacerbation. She will need prednisone taper at discharge was ordered. She will follow-up with pulmonary as an outpatient basis and will need workup with pulmonary function test. - Echocardiogram with diastolic dysfunction normal ejection fraction BNP mildly elevated in the 700s - Does not look clinically hypervolemic (2) Hypokalemia: Code(s): E87.6 - Hypokalemia Status: Resolved Assessment and Plan: - RESOLVEDDelete (3) Acute respiratory failure with hypoxia: Code(s): J96.01 - Acute respiratory failure with hypoxia Status: Acute Assessment and Plan: -Secondary to asthma exacerbation. - CTA negative for PE - Bilateral lower extremity Doppler negative for DVT as well - Echo with diastolic dysfunction with normal ejection fraction - Pt. appears Euvolemic (4) Weight loss, unintentional: Code(s): R63.4 - Abnormal weight loss Status: Acute Assessment and Plan: -Per patient report she has lost 210 lb in the last 1.5 years without actively trying. -She is closely followed by her primary care provider and she has apparently had both upper and lower endoscopy which were unremarkable. 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 Unclear from the scan. Outpatient PET scan would be a next step to do further delineate to see the level of uptake for possibly need for biopsy. No other mediastinal hilar axillary masses noted - She is status post left thyroid lobectomy - CT abdomen does not reveal any abnormal findings - Thyroid ultrasound shows the right thyroid lobe nodule TR 4. Discussed biopsy of this mass/nodule sooner than later as she had lost over 200 lb over the past year and also has associated asthenia/loss of appetite all indicating possible management process however non has had identified so far except for of retromanubrial mass. Biopsy of this area a challenging if required evaluation by cardiothoracic surgeon which is currently available this facility. - biopsy of the TR 4 thyroid nodule was done during the hospital stay on 11/10/2021. The result of the biopsy needs to be followed up as an outpatient basis. She also need to follow up with cardiothoracic surgeon for her retro manubrial mass. I have advised her to speak with the primary care physician for arranging for for referral (5) Diet-controlled diabetes mellitus: Code(s): E11.9 - Type 2 diabetes mellitus without complications Status: Acute Assessment and Plan: -No longer on medication after her weight loss. -Initiate sliding scale insuli
--- NOTE | 2021-11-11 14:00 | PCPTNOTE ---
Patient declined PT treatment session due to anticipated discharge.
--- NOTE | 2021-11-11 16:27 | HOMEO2EVAL ---
Evaluation was performed at [facility] Home Oxygen Evaluation RC: Home Oxygen (O2) Evaluation Start: 11/11/21 11:58 Freq: ONCE Status: Discharge Protocol: RPE Activity Type Activity Date Activity User E-Sign Co-Sign Detail Recorded Client Recorded Date Recorded By Document 11/11/21 14:45 DILIP [email or web address] 11/11/21 16:26 DILIP Document 11/11/21 14:50 DILIP [email or web address] 11/11/21 16:26 DILIP Document 11/11/21 14:55 DILIP [email or web address] 11/11/21 16:26 DILIP 11/11/21 11/11/21 11/11/21 14:45 14:50 14:55 Home O2 Evaluation Test Phase Resting Exercise Resting Oxygen Delivery Room Air Room Air Room Air Pulse Oximetry (90-100 %) 95 96 99 Pulse Rate (60-100 beats/min) 114 H 113 H 111 H Home Oxygen Evaluation Comments No home O2 needed Treatment Charges O2 Evaluation - Inpatient
[2021-11-12 11:48] LABS: Anti Cyclic Citrullinated Pept <16 Units (<20)
[2021-11-14 21:33] LABS: Acetylchol Receptor Binding Ab <0.30 nmol/L
== END 2021-11-11 15:15 | disposition home or self-care (01) | DRG 202 ==
LOC: ANHED 16:54 → ANHIMU 18:43 → ANH2MED 11-05 15:03
PROVIDERS: Internal Medicine Pulmonary Disease; Nurse Practitioner Adult Health; Physician Assistant; Admitting Provider Hospitalist; Emergency Provider Emergency Medicine; Visit Provider Internal Medicine
DX: J45.901 Unspecified asthma with (acute) exacerbation (principal); J96.01 Acute respiratory failure with hypoxia; E11.9 Type 2 diabetes mellitus without complications; Z20.822 Contact with and (suspected) exposure to COVID-19; I10 Essential (primary) hypertension; M06.9 Rheumatoid arthritis, unspecified; F41.8 Other specified anxiety disorders; Z87.891 Personal history of nicotine dependence; E87.6 Hypokalemia; R63.4 Abnormal weight loss; W10.8XXA Fall (on) (from) other stairs and steps, initial encounter; Z91.81 History of falling; R49.0 Dysphonia; R63.0 Anorexia; E89.0 Postprocedural hypothyroidism; Z79.899 Other long term (current) drug therapy; Z79.51 Long term (current) use of inhaled steroids; Z68.30 Body mass index [BMI] 30.0-30.9, adult
CPT/HCPCS: 10005; 36415; 70450; 71045; 71275; 72125; 72128; 72131; 73502; 74176; 76536; 80048; 80053; 82728; 82948; 83036; 83605; 83615; 83735; 83880; 84238; 84439; 84443; 84480; 85025; 85027; 86140; 86200; 86430; 87502; 88173; 88305; 92611; 93005; 93306; 93970; 94618; 94640; 96365; 96366; 96375; 96376; 97110; 97161; 97165; 97530; 99291; A9270; C9803; G0378; J0131; J0456; J1650; J2920; J2930; J3475; J3480; J7040; J7070; Q9967; U0003; U0005

== ENCOUNTER 2021-12-08 11:03 | Emergency (ER) | payer MEDICARE, MEDICAID, SELFPAY ==
--- NOTE | ~2021-12-08 | CT_ITS ---
EXAMINATION: CT abdomen pelvis w con DATE: 12/08/2021 14:18 INDICATION: Right flank pain. Fall. TECHNIQUE: Computed tomography (CT) of the abdomen and pelvis was performed with 100 mL Omnipaque 350 intravenous contrast. Automated exposure control and iterative reconstruction technique were employe d. The dose-length product was 1013.73 mGy-cm. COMPARISON: CT abdomen and pelvis 11/07/2021 FINDINGS: The visualized portions of the lung bases demonstrate minimal atelectasis. A calcified righ t lung nodule is consistent with old granulomatous disease. No pleural effusion. The heart size is no rmal. No pericardial effusion. The liver, gallbladder, pancreas, and adrenal glands are normal. Calci fications in the spleen are consistent with old granulomatous disease. There is an 18 mm cyst in righ t kidney. Left kidney is normal. There are no dilated loops of bowel. There are changes of appendecto my. There are no pathologically enlarged lymph nodes. There is no free intraperitoneal fluid. There i s severe lumbar spondylosis. IMPRESSION: 1. No posttraumatic findings. Reviewed, dictated and finalized at location A.
--- NOTE | ~2021-12-08 | XR_ITS ---
EXAMINATION: XR hip RT 2V w AP pelvis EXAM DATE: 12/08/2021 12:58 INDICATION: fall, right hip pain, initial encounter. TECHNIQUE: Right hip frontal, 'frog leg' projections for interpretation. Frontal projection pelvis. Comparison is made to prior examination from 11/04/2021. FINDINGS: Smooth right hip femoral head contour, no radiographic evidence of avascular necrosis. The re is moderate symmetric bilateral hip primary osteoarthritis. There are no acute fractures or disloc ations identified. There is no subcutaneous gas. The soft tissue is unremarkable. Advanced lower lumbar spondylosis. There is no significant interval change. IMPRESSION: Moderate bilateral hip osteoarthritis. Reviewed, dictated and finalized at location B.
--- NOTE | ~2021-12-08 | XR_ITS ---
EXAMINATION: XR lumbar spine 2-3V EXAM DATE: 12/08/2021 12:58 INDICATION: Right-sided back pain. TECHNIQUE: Lumber spine frontal, lateral, lateral L5-S1 projections for interpretation. Correlation i s made to CT scan 11/04/2021. FINDINGS: Moderate to severe disc disease L3-4 and L4-5, otherwise mild lumbar disc disease. Vertebr al body heights are maintained. There are no acute fractures identified. Sacrum, sacroiliac joints, s acral arcuate lines are intact. Advanced mid and lower lumbar facet arthropathy. Moderate to large am ount of colonic stool and gas. IMPRESSION: Advanced lumbar spondylosis. Reviewed, dictated and finalized at location B.
--- NOTE | ~2021-12-08 | XR_ITS ---
EXAMINATION: XR chest 2V EXAM DATE: 12/08/2021 12:58 INDICATION: Fall, right-sided rib pain, chest pain. TECHNIQUE: Frontal and lateral projections of the chest obtained and reviewed. Comparison is made to prior examination from 11/04/2021. FINDINGS: The lungs are clear. There are no pleural effusions. The cardiomediastinal silhouette is within normal limits. There is no pneumothorax suspected. Patient has diffuse idiopathic skeletal h yperostosis (DISH). IMPRESSION: No acute cardiopulmonary findings. Reviewed, dictated and finalized at location B.
[2021-12-08 11:22] VITALS: BP 157/84; PULSE 84; RESP 17; TEMP 36.8; O2SAT 98
--- NOTE | 2021-12-08 12:30 | ED.FALL ---
HPI - Fall General Chief Complaint: Fall Stated Complaint: fall/right sided back pain Time Seen by Provider: 12/08/21 12:01 Source: patient, EMS and RN notes reviewed Mode of arrival: EMS Limitations: no limitations History of Present Illness HPI Narrative: This is a 66 year old female who presents for evaluation of right back pain s/p fall. Patient states she accidentally fell this morning down 12 steps. She reports occasionally her right leg gives out causing her to fall. She is currently having right mid to lower back pain that is constant but worse with breathing and movement. She has not taken anything for pain. She denies neck pain, hitting her head or LOC. She denies taking any blood thinners. She denies radiating pain to abdomen or legs. She denies leg numbness or tingling. Related Data Home Medications Medication Instructions Recorded Confirmed amlodipine 10 mg PO DAILY 11/05/21 11/05/21 hydrocodone-acetaminophen 5 - 325 tablet PO PRN 11/05/21 11/05/21 hydrocodone-acetaminophen 10 - 325 tablet PO PRN PRN 11/05/21 11/05/21 hydroxyzine HCl 25 mg PO DAILY 11/05/21 11/05/21 venlafaxine 75 mg PO DAILY 11/05/21 11/05/21 Allergies Allergy/AdvReac Type Severity Reaction Status Date / Time lisinopril Allergy Intermediate Swelling Verified 12/08/21 11:25 of Lip/Tongue/Throat tramadol Allergy Mild Unknown Verified 12/08/21 11:25 ibuprofen Allergy Unknown Unknown Verified 12/08/21 11:25 naproxen Allergy Unknown Unknown Verified 12/08/21 11:25 Review of Systems Review of Systems: All systems reviewed & are unremarkable except as noted in HPI and below Constitutional: Constitutional: Denies chills and Denies fever(s) PMFSH Past Medical History Medical History (Updated 12/08/21 @ 14:51 by Verito Gentile MD) Asthma Chronic low back pain Depression with anxiety Diet-controlled diabetes mellitus Hypertension Rheumatoid arthritis Surgical History Surgical History (Updated 11/04/21 @ 21:50 by Lydia Barboza PA-C) History of section History of hysterectomy History of laparoscopy Ectopic x2. History of partial colectomy For benign reasons. History of partial thyroidectomy History of tonsillectomy Family History Family History (Updated 11/04/21 @ 21:50 by Lydia Barboza PA-C) Other Diabetes mellitus Heart disease Hypertension Kidney failure Social History Social History (Updated 11/04/21 @ 21:51 by Lydia Barboza PA-C) Social History: Surrogate decision maker: Antoni Reese, . Code status: Full code. Years smoked: 20 Smoking status: Former smoker Tobacco type: cigarettes Second hand tobacco smoke exposure: Yes Alcohol intake: never Substance use: never Additional living arrangements comments: The patient lives with her in [place]. Spiritual care concerns: No Exam Const: General: alert Orientation/consciousness: patient oriented x3 Other: patient crying in pain HENMT: Head: normocephalic and atraumatic General nose exam: Normal external nose present and Normal nares present Face and sinus: normal facial exam, sinuses nontender and face symmetric Mouth: Yes Normal oral and palatal mucosa present, Yes lip normal, Yes tongue normal, Yes oropharynx normal and Yes moist mucous membranes Throat: posterior oropharynx normal and tonsils normal Eyes: Pupils: Equal, round and reactive pupils present EOM: EOMs intact bilaterally Neck: Neck: normal visual inspection Chest: Chest palpation & inspection: normal inspection of the chest Resp: Effort & Inspection: normal respiratory effort and no retractions Auscultation: clear to auscultation bilaterally Cardio: Rate: regular rate Rhythm: regular rhythm Heart sounds: no murmurs GI: GI Palp: Yes Soft to palpation, No Tenderness to palpation present (GI) and No Guarding due to palpation present (GI) Auscultation: normal bowel sounds :
[2021-12-08] MEDS: MORPHINE SULFATE (*CRX) 4 MG/ML INJ IV PUSH (12:40)
[2021-12-08] MEDS: ONDANSETRON INJ 4 MG/2 ML VIAL IV PUSH (12:40)
[2021-12-08 12:50] LABS: Basophils Absolute Auto 0.1 K/mm3 (0.0-0.1); Basophils Percent Auto 0.3 % (0.2-1.2); Eosinophils Percent Auto 0.1 % (0-4.4); Hematocrit 40.4 % (37.0-47.0); Hemoglobin 13.3 g/dL (12.0-15.0); Immature Granulocyte Percent A 1.4 % (0-0.5); Lymphocytes Absolute Auto 1.67 K/mm3 (0.9-3.2); Lymphocytes Percent Auto 11.5 % (18.3-44.2); Mean Corpuscular HGB Conc 32.9 g/dl (32-36); Mean Corpuscular Hemoglobin 32.3 pg (26-34); Mean Corpuscular Volume 98.1 fl (80-100); Monocytes Absolute Auto 0.8 K/mm3 (0.1-0.6); Monocytes Percent Auto 5.7 % (2.6-8.5); Neutrophils Absolute Auto 11.8 K/mm3 (1.3-6.7); Platelet Count Result 272 k/mm3 (150-375); Red Blood Count 4.12 M/mm3 (4.2-5.4); Red Cell Distribution Width 14.3 % (11.5-14.5); White Blood Count 14.6 K/mm3 (4.5-10.0)
[2021-12-08 13:00] LABS: Alanine Aminotransferase 28 U/L (4-35); Albumin Level 3.8 g/dL (3.5-5.1); Alkaline Phosphatase 48 U/L (38-126); Anion Gap 3 mmol/L (8-16); Aspartate Amino Transferase 27 U/L (14-36); Bilirubin,Total 0.4 mg/dL (0.2-1.3); Blood Urea Nitrogen 12 mg/dL (7-17); Calcium 8.2 mg/dL (8.4-10.2); Carbon Dioxide 31 mmol/L (22-30); Chloride 103 mmol/L (98-107); Estimated CRCL calculation 75 ml/min; Estimated Glomerular Filt Rate > 60; Glucose 94 mg/dL (65-110); Potassium 4.1 mmol/L (3.4-5.0); Sodium 137 mmol/L (137-145)
[2021-12-08 13:14] LABS: Partial Thromboplastin Time 25.3 SECONDS (22.3-36.8); Prothrombin Time 12.9 Seconds (11.1-14.7)
[2021-12-08 14:33] LABS: Appearance Urine Clear (Clear); Bilirubin Urine Negative (Negative); Color Urine Yellow (Yellow); Glucose Urine UA Negative (Negative); Ketones Urine Negative (Negative); Leukocyte Esterase Ur Negative LEU/UL (Negative); Nitrate Urine Negative (Negative); Protein Urine Negative (Negative); Urobilinogen Urine 0.2 mg/dL (<2.0); pH Urine 6.5 (5.0-9.0)
[2021-12-08 14:37] LABS: Add Urine Microscopic? YES; Blood Urine Trace-Intact (Negative)
[2021-12-08 14:56] LABS: Mucus Urine Rare /lpf; Squamous Epithelial Cell Urine Rare /hpf (Few); WBC Urine 0-3 /hpf
[2021-12-08 15:06] VITALS: BP 146/85; PULSE 78; RESP 16; O2SAT 98
== END 2021-12-08 15:09 | disposition home or self-care (01) ==
PROVIDERS: Emergency Provider General Practice
DX: S30.0XXA Contusion of lower back and pelvis, initial encounter (principal); M16.0 Bilateral primary osteoarthritis of hip; J45.909 Unspecified asthma, uncomplicated; E11.9 Type 2 diabetes mellitus without complications; I10 Essential (primary) hypertension; M06.9 Rheumatoid arthritis, unspecified; F41.9 Anxiety disorder, unspecified; G89.29 Other chronic pain; M54.50 Low back pain, unspecified; Z90.49 Acquired absence of other specified parts of digestive tract; Z87.891 Personal history of nicotine dependence; W10.9XXA Fall (on) (from) unspecified stairs and steps, initial encounter
CPT/HCPCS: 36415; 71046; 72100; 73502; 74177; 80053; 81001; 85025; 85610; 85730; 96374; 96375; 99284; J2270; J2405; Q9967

== ENCOUNTER 2024-10-23 10:37 | Emergency (ER) | payer MEDICARE, SELFPAY ==
--- NOTE | ~2024-10-23 | CT_ITS ---
EXAMINATION: CT abdomen pelvis w con DATE: 10/23/2024 15:20 INDICATION: Constipation TECHNIQUE: Computed tomography (CT) of the abdomen and pelvis was performed with 100 mL Omnipaque-350 intravenous contrast. Automated exposure control and iterative reconstruction technique were employe d. The dose-length product was 849.59 mGy-cm. COMPARISON: 12/08/2021 FINDINGS: Mild discoid atelectasis in the posterior left lower lobe. Heart size is normal. Atherosclerotic van nary artery calcific location. No pericardial or pleural effusion. Small sliding-type hiatal hernia. Focal hepatic steatosis ligamentum teres. Gallbladder, pancreas, bilateral adrenal glands and left ki dney are normal. 1. Right renal cyst. A few splenic calcific lesions consistent with old granulomatous disease. Bladder i s normal. The uterus is not identified and has likely been surgically resected. Moderate amount of sc attered colonic stool including a 5.6 cm ball of stool at rectum. Small bowel and appendix are normal . Very small fat-containing umbilical hernia and midline infraumbilical surgical scar. There is an ad ditional widemouthed fat-containing posterior right abdominal wall hernia located along the lateral m argin of the paraspinal musculature. No free intraperitoneal gas or fluid. No pathologically enlarged abdominal or pelvic lymphadenopathy. L3-L4 and L4-L5 discectomies with prosthetic disc placement IMPRESSION: 1. Moderate amount of scattered colonic stool including a 5.6 similar ball of stool at the rectum con sistent with reported history of constipation. 2. Right small fat-containing umbilical hernia and larger fat-containing widemouthed infracostal righ t posterior abdominal wall hernia. Reviewed, dictated and finalized at location [facility]. [facility] IMPRESSION: 1. Moderate amount of scattered colonic stool including a 5.6 similar ball of s tool at the rectum consistent with reported history of constipation. 2. Right small fat-containing umbilical hernia and larger fat-containing widemo uthed infracostal right posterior abdominal wall hernia.
[2024-10-23 11:24] VITALS: BP 121/57; PULSE 71; RESP 19; TEMP 36.8; O2SAT 99
--- OUTSIDE RECORDS SUMMARY | 2024-10-23 12:02 | XMS_ITS | Patient Health Summary ---
Author Organization [facility] Maintenance Assistant Address [address] [place] [address] Care Team Providers Care Spring Intern Name Role Phone Unavailable Primary Care Provider Unavailabl e Note from [facility],non-owned Affiliates and Associated Physician Practices is amultiple site organization consisting of ambulatory clinics and hospital sitesin [place], [place], [place] and [place]. This disclosure is being madepursuant to the Care Everywhere program and may not contain all information available regarding this patient. Last updated 18.[facility] Maintenance Assistant Allergies * Celecoxib(Other) -Low Criticality * Enovarx-Ibuprofen(Shortness of Breath) -High Criticality * Naproxen(Other) -Low Criticality * Tramadol(Shortness of Breath) -High Criticality Social History Tobacco Use Types Packs/Day Years Used Date Smoking Tobacco: Never Alcohol Use Standard Drinks/Week Comments No 0 (1 standard drink = 0.6 oz pur e alcohol) Sex and Gender Information Value Date Recorded Sex Assigned at Not on file Gender Identity Not on file Sexual Orientation Not on file Last Filed Vital Signs Vital Sign Reading Time Taken Comments Blood Pressure 152/80 06/04/2015 2:08 PM CDT Pulse 103 06/04/2015 2:08 PM CDT Temperature 36.7 C (98.1 F) 06/04/2015 2:08 PM CDT Respiratory Rate 20 06/04/2015 2:08 PM CDT Oxygen Saturation 99% 06/04/2015 2:08 PM CDT Inhaled Oxygen Concentration - - Weight 140.6 kg (310 lb) 06/04/2015 2:08 PM CDT Height 165.1 cm (5' 5 ) 06/04/2015 2:08 PM CDT Body Mass Index 51.59 06/04/2015 2:08 PM CDT Procedures * XR LUMBAR SPINE 2 OR 3VW(Performed 06/04/2015) Results * XR LUMBAR SPINE 2 OR 3VW (06/04/2015 3:46 PM CDT) Anatomical Region Laterality Modality Spine Other Impressions 06/04/2015 4:25 PM CDT FINDINGS/IMPRESSION: There are multilevel degenerative changes of the lumbar spine with facet arthropathy and anterior osteophytes. No acute fracture or subluxation is seen, vertebral body heights and intervertebral disc spaces are preserved. The sacroiliac joints are intact. Dictated by Khris Silverman MD (Poultry Inspector). This report was approved by Khris Silverman M.D. on 06/04/2015 3:[address] MARCO A Burk M.D. have personally reviewed and interpreted this examination/study. This report was electronically signed by MARCO A LEBRON M.D. on 06/04/2015 4:25 PM . Narrative 06/04/2015 4:25 PM CDT EXAMINATION: XR SPINE LUMBAR 2 OR 3 VW DATE: 06/04/2015 3:47 PM HISTORY: Low back pain. COMPARISON: No prior study is available for comparison. Procedure Note Marco A Lebron MD - 11/27/2017 EXAMINATION: XR SPINE LUMBAR 2 OR 3 VW DATE: 06/04/2015 3:47 PM HISTORY: Low back pain. COMPARISON: No prior study is available for comparison. IMPRESSION FINDINGS/IMPRESSION: There are multilevel degenerative changes of the lumbar spine with facetarthropathy and anterior osteophytes. No acute fracture or subluxation isseen, vertebral body heights and intervertebral disc spaces are preserved.The sacroiliac joints are intact. Dictated by Khris Silverman MD (Poultry Inspector). This report was approved by Khris Silverman M.D. on 06/04/2015 3:[address] MARCO A Burk M.D. have personally reviewed and interpreted thisexamination/study. This report was electronically signed by MARCO A LEBRON M.D. on 06/04/20154:25 PM . Jyothi Ochoa MD DIAGNOSTIC IMAGING O [facility]
--- OUTSIDE RECORDS SUMMARY | 2024-10-23 12:02 | XMS_ITS | Clinical Summary ---
Author Organization [facility] Address [address] [place] [address] Care Team Providers Care Post Acute Care Registered Nurse Name Role Phone Unavailable Primary Care Provider Unavailabl e Source Comments [facility],non-owned Affiliates and Associated Physician Practices is amultiple site organization consisting of ambulatory clinics and hospital sitesin [place], [place], [place] and [place]. This disclosure is being madepursuant to the Care Everywhere program and may not contain all information available regarding this patient. Last updated 18.[facility] Allergies Active Allergy Reactions Criticality Noted Date Comments Celecoxib Other Low 06/04/2015 Chest pains Enovarx-Ibuprofen Shortness of Breath High 5 Naproxen Other Low 06/04/2015 Chest pains Tramadol Shortness of Breath High 06/04/2015 Social History Tobacco Use Types Packs/Day Years [...] Mass Index 51.59 06/04/2015 2:08 PM CDT Plan of Treatment Health Maintenance Due Date Last Done Comments BONE DENSITY TESTING 1954 COLOGUARD (AGES 45-75) - COL ON CA SCREENING 1954 COLON MONITORING 1954 COLONOSCOPY - COLON CA SCREENING 1954 CT COLONOGRAPHY - COLON CA SCREENING 1954 Colorectal Cancer Screening 1954 FIT - COLON CA SCREENING 1954 FLEX SIG - COLON CA SCREENING 1954 LIPID TESTING 1954 MAMMOGRAM 1954 MEDICARE AWV 12 MONTHS 1954 HEPATITIS C SCREENING 08/14/1972 DTAP/TDAP/TD VACCINES (1 - Tdap) 1973 PNEUMOCOCCAL VACCINE 50+ (1 of 1 - PCV) 2004 ZOSTER VACCINE (1 of 2) 2004 Respiratory Syncytial Virus (RSV) Vaccine Pt: or over 60 yrs (1 - Risk 60-74 years 1-dose series) 2014 COVID-19 VACCINE ( - 2023-2 5 season) 2024 INFLUENZA VACCINE (#1) 2024 DEPRESSION SCREENING 08/30/2024 HEPATITIS B VACCINE Aged Out No longe r eligible based on patient's age to complete this topic HIB VACCINE Aged Out No longer eligi ble based on patient's age to complete this topic HPV VACCINE Aged Out No longer eligi ble based on patient's age to complete this topic MENINGOCOCCAL (Group B) VACCINE Aged Out No longer eligible based on patient's age to complete this topic MENINGOCOCCAL VACCINE Aged Out No venancio jabari eligible based on patient's age to complete this topic
--- OUTSIDE RECORDS SUMMARY | 2024-10-23 12:02 | XMS_ITS | Referral Summary ---
Author Organization [facility] [email or web address] Address [address] [place] [address] Care Team Providers Care Superintendent [employer] Name Role Phone Unavailable Primary Care Provider Unavailabl e Source Comments [facility],non-owned Affiliates and Associated Physician Practices is amultiple site organization consisting of ambulatory clinics and hospital sitesin [place], [place], [place] and [place]. This disclosure is being madepursuant to the Care Everywhere program and may not contain all information available regarding this patient. Last updated 18.[facility] [email or web address] Allergies Active Allergy Reactions Criticality Noted Date [...] 06/04/2015 2:08 PM CDT Plan of Treatment Not on file
--- OUTSIDE RECORDS SUMMARY | 2024-10-23 12:02 | XMS_ITS | Clinical Summary ---
Author Organization [facility] Address [address] [place] [id number] Care Team Providers Care Plant Anatomy Teacher Name Role Phone Md, Generic Conversion MD Primary Care Provider Unavailable Allergies Active Allergy Reactions Criticality Noted Date Comments Celecoxib Chest pressure,Shortness of Breath High 06/04/2015 Chest pains Breathing Difficulty Ibuprofen Shortness of Breath High 12/22/2018 Naproxen Shortness of Breath High 12/22/2018 Tramadol Shortness of Breath High 12/22/2018 Medications hydrocodone-acetami nophen 5-325 MG tablet Take 1 tablet by mouth every 6 (six) hours as needed for Pain. 10 tablet 9 Active ondansetron (ZOFRAN-ODT) 4 MG disintegrating tablet Take 1 tablet (4 mg total) by mouth every 8 (eight) hours as needed for Nausea. 10 tablet 4 Active HYDROcodone-acetami nophen (NORCO) 5-325 MG tabletIndications:A cute Pain < 7 Day Supply Take 1 tablet by mouth every 6 (six) hours as needed. Indications : Acute Pain < 7 Day Supply 10 tablet 4 Active Fluticasone Furoate (ARNUITY ELLIPTA) 100 MCG/ACT AEROSOL POWDER, BREATH ACTIVATED Inhale 2 puffs into the lungs daily. 1 each 4 Active Active Problems No known active problems Social History Tobacco Use Types Packs/Day Years Used Date Smoking Tobacco: Former Cigarettes 1 10 - 2003 Passive Smoke Exposure: Never Smokeless Tobacco: Never Alcohol Use Standard Drinks/Week Comments No 0 (1 standard drink = 0.6 oz pur e alcohol) AUDIT-C Answer Date Recorded Frequency of Alcohol Consumption Never 12/22/2018 Average Number of Drinks Not on file 019 Frequency of Binge Drinking Not on file 11/29 Comments No Sex and Gender Information Value Date Recorded Sex Assigned at Not on file Legal Sex Female 7:52 PM CDT Gender Identity Not on file Sexual Orientation Not on file Last Filed Vital Signs Vital Sign Reading Time Taken Comments Blood Pressure 152/94 11/10/2023 11:44 PM CDT Pulse 68 11/10/2023 11:44 PM CDT Temperature 37.2 C (98.9 F) 11/10/2023 8:31 PM CDT Respiratory Rate 18 11/10/2023 11:44 PM CDT Oxygen Saturation 96% 11/10/2023 11:44 PM CDT Inhaled Oxygen Concentration - - Weight 122.5 kg (270 lb) 11/10/2023 8:31 PM CDT Height 165.1 cm (5' 5 ) 11/10/2023 8:31 PM CDT Body Mass Index 44.93 11/10/2023 8:31 PM CDT Plan of Treatment Health Maintenance Due Date Last Done Comments Colorectal Cancer Screening Colonoscopy (10 Years) 1954 Hepatitis C 1972 Mammogram Screening 1994 Zoster Vaccines (1 of 2) 2004 RSV Immunization or 60+ Years (1 - Risk 60-74 years 1-dose series) 2014 Annual Medicare Wellness Visit 2019 COVID-19 Vaccine ( season) 2024 08/06/2023, 09/02/2022, 01/09/2022, Additional history exists Influenza Adult (#1) 2024 06/16/2019, 06/17/2018, 07/01/2017, Additional history exists DTaP, Tdap and Td Vaccines (2 - Td or Tdap) 05/18/2033 05/18/2023 Pneumococcal Vaccine: 65+ Years Completed 11/01/2020, 09/16/2017 Dexa Scan (General) Completed 06/24/2023 Meningococcal B Vaccine Aged Out No l onger eligible based on patient's age to complete this topic Meningococcal Vaccine Aged Out No venancio jabari eligible based on patient's age to complete this topic RSV Immunizations Under 20 Months Aged Out No longer eligible based on patient's age to complete this topic Insurance MEDICAID MEDICARE [facility] Care Teams Plant Anatomy Teacher Relationship Specialty Start Date End Date Swathi Santiago MD PCP - General FAMILY PRACTICE 12/22/18
--- NOTE | 2024-10-23 14:16 | ED_ITS ---
HPI - Abdominal Pain General Chief Complaint: Abdominal Pain <Milli St PA-C - Last Filed: 10/23/24 18:32> Stated Complaint: abd pain x3 days <Milli St PA-C - Last Filed: 10/23/24 18:32> Time Seen by Provider: 10/23/24 14:52 <[address] PA-C - Last Filed: 10/23/24 18:32> Focused HPI: 69-year-old female presents emergency department for abdominal pain and constipation. Patient has not had a bowel movement 1 week. States she has not been passing gas. Endorsing nausea and vomiting. No fevers. States it feels like something is hanging out of my butt. Admits to history of bowel resection but is unsure why. States she is on narcotics for chronic back pain. GENERAL: Well-appearing, well-nourished, and in no acute distress. HEAD: Normocephalic, atraumatic. CHEST: Clear to auscultation. ?No respiratory distress. HEART: Regular rate and rhythm.? NEURO: ?Alert and oriented x3. Patient screened in triage and initial orders placed.? ?Additional care and disposition to be based upon?diagnostic testing and treatment. <Milli St PA-C - Last Filed: 10/23/24 18:32> History of Present Illness HPI narrative: 69-year-old female presents to the emergency department for evaluation for constipation and back pain. <Talat Garcia MD - Last Filed: 10/23/24 18:25> Related Data Home Medications: Home Medications ?Medication ?Instructions ?Recorded ?Confirmed ?Last Taken ?Type hydrocodone 10 mg-acetaminophen 10 - 325 tablet PO PRN PRN Pain 11/05/21 11/05/21 Unknown History 325 mg tablet hydrocodone 5 mg-acetaminophen 325 5 - 325 tablet PO PRN 11/05/21 11/05/21 Unknown History mg tablet <Milli St PA-C - Last Filed: 10/23/24 18:32> Allergies/Adverse Reactions: Allergies Allergy/AdvReac Type Severity Reaction Status Date / Time celecoxib Allergy Severe Difficulty Verified 06/26/22 16:02 Breathing lisinopril Allergy Intermediate Swelling Verified 12/08/21 11:25 of Lip/Tongue/Throat tramadol Allergy Mild Unknown Verified 12/08/21 11:25 ibuprofen Allergy Unknown Unknown Verified 12/08/21 11:25 naproxen Allergy Unknown Unknown Verified 12/08/21 11:[address] <[address] PA-C - Last Filed: 10/23/24 18:32> Review of Systems 2 Review of Systems: All systems reviewed & are unremarkable except as noted in HPI and below <Talat Garcia MD - Last Filed: 10/23/24 18:25> PMFSH Past Medical History Medical History: Medical History (Updated 10/23/24 @ 16:38 by Talat Garcia MD) Rheumatoid arthritis Depression with anxiety Chronic low back pain Diet-controlled diabetes mellitus Hypertension Asthma <Milli St PA-C - Last Filed: 10/23/24 18:32> Surgical History Surgical History: Surgical History (Updated 11/04/21 @ 21:50 by Lydia Barboza PA-C) History of section History of tonsillectomy History of partial thyroidectomy History of hysterectomy History of partial colectomy For benign reasons. History of laparoscopy Ectopic x2. <Milli St PA-C - Last Filed: 10/23/24 18:32> Family History Family History: Family History (Updated 11/04/21 @ 21:50 by Lydia Barboza PA-C) Other Diabetes mellitus Heart disease Hypertension Kidney failure <Milli St PA-C - Last Filed: 10/23/24 18:32> Social History Social History: Social History (Updated 11/04/21 @ 21:51 by Lydia Barboza PA-C) Social History: Surrogate decision maker: Antoni Reese, . Code status: Full code. Years smoked: 20 Smoking status: Former smoker Tobacco type: cigarettes Second hand tobacco smoke exposure: No Alcohol intake: never Substance use: never Additional living arrangements comments: The patient lives with her in [place]. Occupation/Education: retired Spiritual care concerns: No <Milli St PA-C - Last Filed: 10/23/24 18:32> Exam 2 Narrative: APPEARANCE: Well appearing, no pain, no distress, well-nourished. HEAD: normocephalic, atraumatic. EYES: PERRLA/EOMI, conjunctivae clear. NOSE: Normal no drainage EARS:TMS clear with good light reflex. THROAT: Pharynx clear, no exudate. NECK: Supple. No adenopathy, no masses. RESPIRATORY: Airway patent, respirations nonlabored. Clear to auscultation bilaterally, no rales, rhonchi, wheezing. CARDIOVASCULAR: Regular rate and rhythm without murmurs rubs or gallops. ABDOMINAL: Soft, nontender, nondistended, normal bowel sounds MUSCULOSKELETAL: Moves all extremities. Strength/ROM intact, No edema, No calf tenderness. NEURO: Alert. Cranial nerves II through XII intact. Good gait. Good coordination SKIN: Warm, dry. Normal Color Rectal exam: Large stool ball within the rectal vault <Talat Garcia MD - Last Filed: 10/23/24 18:25> Course Vital Signs Vital signs: Vital Signs Temperature 98.3 F 10/23/24 11:24 Pulse Rate 71 10/23/24 11:24 Respiratory Rate 19 10/23/24 11:24 Blood Pressure 121/57 L 10/23/24 11:24 Pulse Oximetry 99 10/23/24 11:24 Oxygen Delivery Room Air 10/23/24 11:24 Temperature 98.3 F 10/23/24 11:24 Pulse Rate 87 10/23/24 17:37 Respiratory Rate 19 10/23/24 17:37 Blood Pressure 121/57 L 10/23/24 11:24 Pulse Oximetry 99 10/23/24 17:37 Oxygen Delivery Room Air 10/23/24 11:[address] <[address] PA-C - Last Filed: 10/23/24 18:32> Vital Signs Temperature 98.3 F 10/23/24 11:24 Pulse Rate 71 10/23/24 11:24 Respiratory Rate 19 10/23/24 11:24 Blood Pressure 121/57 L 10/23/24 11:24 Pulse Oximetry 99 10/23/24 11:24 Oxygen Delivery Room Air 10/23/24 11:24 Temperature 98.3 F 10/23/24 11:24 Pulse Rate 87 10/23/24 17:37 Respiratory Rate 19 10/23/24 17:37 Blood Pressure 121/57 L 10/23/24 11:24 Pulse Oximetry 99 10/23/24 17:37 Oxygen Delivery Room Air 10/23/24 11:24 <Talat Garcia MD - Last Filed: 10/23/24 18:25> MDM - Abdominal Pain MDM Narrative Medical decision making narrative: 69-year-old female presenting to the emergency department for evaluation for constipation secondary to her opiate medications. Patient is currently afebrile but does have a white blood cell count of 15.4, hemoglobin is 13.6. INR is 1.0. No significant abnormalities on her CMP. CT abdomen pelvis did show constipation. Attempted rectal disimpaction but patient did not tolerate. Patient did have a large stool ball in the rectum. Patient was treated with a soapsuds enema and did feel improved. <Talat Garcia MD - Last Filed: 10/23/24 18:25> Differential Diagnosis Differential diagnosis: Likely abdominal pain, constipation, diverticulitis and small bowel obstruction <Talat Garica MD - Last Filed: 10/23/24 18:25> Lab Data Attestation: I reviewed the patient's lab results. <Talat Garcia MD - Last Filed: 10/23/24 18:25> Result diagrams: 10/23/24 14:31 10/23/24 14:[address] PA-C - Last Filed: 10/23/24 18:32> Labs: Lab Results 10/23/24 10/23/24 Range/Units 14:31 16:59 WBC 15.4 H (4.5-10.0) K/mm3 RBC 4.09 L (4.2-5.4) M/mm3 Hgb 13.6 (12.0-15.0) g/dL Hct 41.2 (37.0-47.0) % MCV 100.7 H (80-100) fl MCH 33.3 (26-34) pg MCHC 33.0 (32-36) g/dl RDW 14.1 (11.5-14.5) % Plt Count 228 (150-375) k/mm3 MPV 10.5 H (7.4-10.4) fl Immature Gran % (Auto) 0.4 (0-0.5) % Neut % (Auto) 80.8 H (45.5-73.1) % Lymph % (Auto) 13.1 L (18.3-44.2) % [place] % (Auto) 5.4 (2.6-8.5) % Eos % (Auto) 0.1 (0-4.4) % Baso % (Auto) 0.2 (0.2-1.2) % Lymph # (Auto) 2.02 (0.9-3.2) K/mm3 [place] # (Auto) 0.8 H (0.1-0.6) K/mm3 Eos # (Auto) 0.0 (0-0.3) K/mm3 Baso # (Auto) 0.0 (0.0-0.1) K/mm3 Abs Immat Gran (auto) 0.06 H (0.00-0.031) K/mm3 Absolute Neuts (auto) 12.5 H (1.3-6.7) K/mm3 Absolute Nucleated RBC 0.000 (0.0-0.012) K/mm3 Nucleated RBC % 0.0 (0.0-0.2) % PT 13.7 (11.1-14.7) Seconds INR 1.0 APTT 29.1 (22.3-36.8) Seconds Sodium 139 (137-145) mmol/L Potassium 3.3 L (3.4-5.0) mmol/L Chloride 101 (98-107) mmol/L Carbon Dioxide 31 H (22-30) mmol/L Anion Gap 7 (4-12) mmol/L BUN 8 (7-17) mg/dL Creatinine 0.51 L (0.7-1.0) mg/dL Estim Creat Clear Calc 92 ml/min Estimated GFR > 60 (59 - ) Glucose 91 (65-110) mg/dL Calcium 8.8 (8.4-10.2) mg/dL Total Bilirubin 0.8 (0.2-1.3) mg/dL AST 16 (14-36) U/L ALT 11 (6-35) U/L Alkaline Phosphatase 42 (38-126) U/L Total Protein 7.0 (6.3-8.2) g/dL Albumin 4.1 (3.5-5.1) g/dL Urine Color Dark yellow (Yellow) Urine Appearance Turbid H (Clear) Urine pH 7.5 (5.0-9.0) Ur Specific [place] 1.023 (1.001-1.035) Urine Protein Trace (Negative) mg/dL Urine Glucose (UA) Negative (Negative) mg/dL Urine Ketones Trace H (Negative) mg/dL Ur Blood (Man) 2+ H (Negative) Urine Nitrate Positive H (Negative) Urine Bilirubin Negative (Negative) Urine Urobilinogen 1.0 (<2.0) mg/dL Add Ur Microanalysis Reviewed Leukocyte Esterase Rfl 3+ H (Negative) GREGORY/UL Urine RBC 21-50 H (0-2) /hpf Urine WBC 11-20 H (0-3) /hpf Ur Squamous Epith Cells Few (Few) /hpf Urine Bacteria 4+ /hpf Urine Casts 3-[address] <[address] PA-C - Last Filed: 10/23/24 18:32> Lab Results 10/23/24 10/23/24 Range/Units 14:31 16:59 WBC 15.4 H (4.5-10.0) K/mm3 RBC 4.09 L (4.2-5.4) M/mm3 Hgb 13.6 (12.0-15.0) g/dL Hct 41.2 (37.0-47.0) % MCV 100.7 H (80-100) fl MCH 33.3 (26-34) pg MCHC 33.0 (32-36) g/dl RDW 14.1 (11.5-14.5) % Plt Count 228 (150-375) k/mm3 MPV 10.5 H (7.4-10.4) fl Immature Gran % (Auto) 0.4 (0-0.5) % Neut % (Auto) 80.8 H (45.5-73.1) % Lymph % (Auto) 13.1 L (18.3-44.2) % [place] % (Auto) 5.4 (2.6-8.5) % Eos % (Auto) 0.1 (0-4.4) % Baso % (Auto) 0.2 (0.2-1.2) % Lymph # (Auto) 2.02 (0.9-3.2) K/mm3 [place] # (Auto) 0.8 H (0.1-0.6) K/mm3 Eos # (Auto) 0.0 (0-0.3) K/mm3 Baso # (Auto) 0.0 (0.0-0.1) K/mm3 Abs Immat Gran (auto) 0.06 H (0.00-0.031) K/mm3 Absolute Neuts (auto) 12.5 H (1.3-6.7) K/mm3 Absolute Nucleated RBC 0.000 (0.0-0.012) K/mm3 Nucleated RBC % 0.0 (0.0-0.2) % PT 13.7 (11.1-14.7) Seconds INR 1.0 APTT 29.1 (22.3-36.8) Seconds Sodium 139 (137-145) mmol/L Potassium 3.3 L (3.4-5.0) mmol/L Chloride 101 (98-107) mmol/L Carbon Dioxide 31 H (22-30) mmol/L Anion Gap 7 (4-12) mmol/L BUN 8 (7-17) mg/dL Creatinine 0.51 L (0.7-1.0) mg/dL Estim Creat Clear Calc 92 ml/min Estimated GFR > 60 (59 - ) Glucose 91 (65-110) mg/dL Calcium 8.8 (8.4-10.2) mg/dL Total Bilirubin 0.8 (0.2-1.3) mg/dL AST 16 (14-36) U/L ALT 11 (6-35) U/L Alkaline Phosphatase 42 (38-126) U/L Total Protein 7.0 (6.3-8.2) g/dL Albumin 4.1 (3.5-5.1) g/dL Urine Color Dark yellow (Yellow) Urine Appearance Turbid H (Clear) Urine pH 7.5 (5.0-9.0) Ur Specific [place] 1.023 (1.001-1.035) Urine Protein Trace (Negative) mg/dL Urine Glucose (UA) Negative (Negative) mg/dL Urine Ketones Trace H (Negative) mg/dL Ur Blood (Man) 2+ H (Negative) Urine Nitrate Positive H (Negative) Urine Bilirubin Negative (Negative) Urine Urobilinogen 1.0 (<2.0) mg/dL Add Ur Microanalysis Reviewed Leukocyte Esterase Rfl 3+ H (Negative) GREGORY/UL Urine RBC 21-50 H (0-2) /hpf Urine WBC 11-20 H (0-3) /hpf Ur Squamous Epith Cells Few (Few) /hpf Urine Bacteria 4+ /hpf Urine Casts 3-5 <Talat Garcia MD - Last Filed: 10/23/24 18:25> Imaging Data Radiologist's impression: ITS Impressions Abdomen/Pelvis CT 10/23/24 15:32 IMPRESSION: 1. Moderate amount of scattered colonic stool including a 5.6 similar ball of stool at the rectum consistent with reported history of constipation. 2. Right small fat-containing umbilical hernia and larger fat-containing widemouthed infracostal right posterior abdominal wall hernia. <Milli St PA-C - Last Filed: 10/23/24 18:32> ITS Impressions Abdomen/Pelvis CT 10/23/24 15:32 IMPRESSION: 1. Moderate amount of scattered colonic stool including a 5.6 similar ball of stool at the rectum consistent with reported history of constipation. 2. Right small fat-containing umbilical hernia and larger fat-containing widemouthed infracostal right posterior abdominal wall hernia. <Talat Garcia MD - Last Filed: 10/23/24 18:25> Discharge Plan Discharge Clinical Impression: Constipation due to pain medication <Milli St PA-C - Last Filed: 10/23/24 18:32> Patient Disposition: Home, Self-Care <Milli St PA-C - Last Filed: 10/23/24 18:32> Condition: Stable <Milli St PA-C - Last Filed: 10/23/24 18:32> Instructions: Antibiotic Form, Constipation (ED), Abdominal Pain (ED) <Milli St PA-C - Last Filed: 10/23/24 18:32> Additional Instructions: Take multiple doses of MiraLax daily while you are taking narcotic pain medication. Increase your water intake. Have close follow-up with your primary care physician. If you have any worsening symptoms please call or return to the emergency department. <Milli St PA-C - Last Filed: 10/23/24 18:32> Patient Language: Citizen Of [place] <Milli St PA-C - Last Filed: 10/23/24 18:32> Prescriptions: No Action hydrocodone-acetaminophen 5-325 mg tablet 5 - 325 tablet PO PRN hydrocodone-acetaminophen 10-325 mg tablet 10 - 325 tablet PO PRN PRN (Reason: Pain) mirtazapine [Remeron] 15 mg Tablet 15 mg PO HS Qty: 30 0RF albuterol sulfate 90 mcg/actuation HFA aerosol inhaler 2 puff inhalation QID PRN (Reason: shortness of breath or wheezing) Qty: 8.5 0RF fluticasone propion-salmeterol [Advair Diskus] 500-50 mcg/dose blister with device 1 inh inhalation Q12H Qty: 60 0RF cyclobenzaprine 5 mg tablet 5 mg PO TID PRN (Reason: muscle spasm) Qty: 10 0RF acetaminophen [Mapap (acetaminophen)] 325 mg Tablet 975 mg PO Q6H PRN (Reason: Pain Rated 5 Or Less) Qty: 30 0RF amlodipine 10 mg Tablet 10 mg PO QAM Qty: 30 0RF ergocalciferol (vitamin D2) [Vitamin D2] 1,250 mcg (50,000 unit) Capsule 50,000 units PO WEEKLY Qty: 4 0RF pregabalin [Lyrica] 75 mg Capsule 75 mg PO DAILY Qty: 30 0RF <M[address] PA-C - Last Filed: 10/23/24 18:32> Follow-up/Referrals: PHYSICIAN NOT ON STAFF,NONSTAFF [Non-Staff] - <Milli St PA-C - Last Filed: 10/23/24 18:32>
[2024-10-23 14:46] LABS: Basophils Percent Auto 0.2 % (0.2-1.2); Eosinophils Percent Auto 0.1 % (0-4.4); Hematocrit 41.2 % (37.0-47.0); Hemoglobin 13.6 g/dL (12.0-15.0); Immature Granulocyte Absolute 0.06 K/mm3 (0.00-0.031); Immature Granulocyte Percent A 0.4 % (0-0.5); Lymphocytes Absolute Auto 2.02 K/mm3 (0.9-3.2); Lymphocytes Percent Auto 13.1 % (18.3-44.2); Mean Corpuscular Hemoglobin 33.3 pg (26-34); Mean Corpuscular Volume 100.7 fl (80-100); Mean Platelet Volume 10.5 fl (7.4-10.4); Monocytes Absolute Auto 0.8 K/mm3 (0.1-0.6); Monocytes Percent Auto 5.4 % (2.6-8.5); Neutrophils Absolute Auto 12.5 K/mm3 (1.3-6.7); Neutrophils Percent Auto 80.8 % (45.5-73.1); Platelet Count Result 228 k/mm3 (150-375); Red Blood Count 4.09 M/mm3 (4.2-5.4); Red Cell Distribution Width 14.1 % (11.5-14.5); White Blood Count 15.4 K/mm3 (4.5-10.0)
[2024-10-23 15:01] LABS: Prothrombin Time 13.7 Seconds (11.1-14.7)
[2024-10-23 15:02] LABS: Partial Thromboplastin Time 29.1 Seconds (22.3-36.8)
[2024-10-23 15:03] LABS: Alanine Aminotransferase 11 U/L (6-35); Albumin Level 4.1 g/dL (3.5-5.1); Alkaline Phosphatase 42 U/L (38-126); Anion Gap 7 mmol/L (4-12); Aspartate Amino Transferase 16 U/L (14-36); Bilirubin,Total 0.8 mg/dL (0.2-1.3); Blood Urea Nitrogen 8 mg/dL (7-17); Calcium 8.8 mg/dL (8.4-10.2); Carbon Dioxide 31 mmol/L (22-30); Chloride 101 mmol/L (98-107); Estimated CRCL calculation 92 ml/min; Estimated Glomerular Filt Rate > 60; Glucose 91 mg/dL (65-110); Potassium 3.3 mmol/L (3.4-5.0); Sodium 139 mmol/L (137-145)
[2024-10-23] MEDS: HYDROcodone/acetaminophen (*CRX) 5-325 MG TABLET 1 TAB PO (17:09)
--- OUTSIDE RECORDS SUMMARY | 2024-10-23 17:12 | XMS_ITS | Encounter Summary ---
Author Organization [facility] Healthcare Address [address] [place] [address] Care Team Providers Care Bellman Name Role Phone Reynaldo Kearney MD Primary Care Provi riley Lisbeth Gregory MD Primary Care Provider Armando Allan MD Primary Care Provider [phone] Lisbeth Gregory MD Primary Care Provider Armando Allan MD Primary Care Provider [phone] Judith Ahn RN Unavailable [phone] Magdy Grove MD Primary Care Provider + Unknown, Notinfile Primary Care Provider Unavail able Magdy Grove MD Primary Care Provider + Reason for Visit * Reason Onset Date Comments Follow-up 09/15/2018 Encounter Details Date Type Department Care Team (Late st Contact Info) Description 09/15/2018 Telephone [facility] [address] [facility] [address] [place] [address] Reynaldo Kearney MD [address] [facility] [address] [place] [address] Follow-up Social History Tobacco Use Types Packs/Day Years Used Date Smoking Tobacco: Former Cigarettes 2 5 0 08/30/1994 - 08/30/1999 Smokeless Tobacco: Never Comments:Per pt smoked 2ppd for 5yrs in the 1990s Alcohol Use Standard Drinks/Week Comments No 0 (1 standard drink = 0.6 oz pur e alcohol) Comments No Sex and Gender Information Value Date Recorded Sex Assigned at Not on file Legal Sex Female 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 Gender Identity Female 02/01/2020 12:43 PM CDT Sexual Orientation Not on file documented as of this encounter Miscellaneous Notes * Telephone Encounter - Catalina Giles - 09/15/2018 8:47 AM CST TER MACHINE TENDER documented in this encounter Plan of Treatment Upcoming Encounters Date Type Department Care Team (Latest Contact Info) Description 10/31/2024 9:30 AM PLASTER MACHINE TENDER Hospital Encounter [facility] [place] [address] [address] Charli Ramirez MD [address] [address] 10/31/2024 9:30 AM PLASTER MACHINE TENDER - 10/31/2024 10:00 AM PLASTER MACHINE TENDER Surgery [facility] [place] [address] [address] Charli Ramirez MD [address] [place] [address] ESOPHAGOGASTRODUODENOSCOPY Scheduled Procedures Name Priority Associated Diagnoses Date/Ti sd ESOPHAGOGASTRODUODENOSCOPY Weight loss Dysphagia, unspecified type 10/31/2024 9:30 AM PLASTER MACHINE TENDER ESOPHAGOGASTRODUODENOSCOPY Open Access Weight loss Dysphagia, unspecified type COLONOSCOPY Open Access Colon cancer screening COLONOSCOPY Open Access Screening for colon cancer Colitis documented as of this encounter Goals Goal Patient Goal Type Associated Problems Recent Progress Patient-Stated? Author CCM Chronic Pain Care Plan Chronic Care Management No change(05/19 9:54 AM CDT) No Cheryle Barros, [place] Note: Problem: Chronic Pain Goals: 1. Minimize further functional decline 2. Maximize quality of life 3. Control pain Strategies: - Activity/exercise program recommendation - Conservative stepwise pain medicine strategy with multi-disciplinary approach - Recommend healthy lifestyle strategies and compensatory methods as needed documented as of this encounter Visit Diagnoses Not on filedocumented in this encounter Additional Health Concerns Infection Onset Date Last Indicated Resolved Time COVID19 05/27/2022 05/27/2022 06/14/2022 3:05 AM CDT COVID: Recovered Comment:Added based on recent COVID infection. 06/14/2022 06/14/2022 10/12/2022 3:[address] documented as of this encounter Care Teams Bellman Relationship Specialty Start Date End Date Reynaldo Kearney MD [address] [place] [address] PCP - General 12/25/16 03/14/19 Lisbeth Gregory MD [address] [address] PCP - General 03/15/19 02/14/21 Armando Allan MD [address] [address] PCP - General 02/15/21 02/17/21 Lisbeth Gregory MD [address] [address] PCP - General 02/18/21 02/19/21 Armando Allan MD [address] [address] PCP - General Internal Medicine 02/20/21 02/18/24 Magdy Grove MD [facility] [phone] [place] [address] PCP - General 02/19/24 06/07/24 Unknown, Notinfile PCP - General 06/08/24 06/08/24 Magdy Grove MD [address] [facility] [address] [place] [address] PCP - General Internal Medicine 06/09/24 Judith Ahn, RN [address] [facility] [address] [place] [address] SHOP Outpatient Reclamation Kettle Tender 06/05/22 06/25/22 documented as of this encounter
--- OUTSIDE RECORDS SUMMARY | 2024-10-23 17:13 | XMS_ITS | Referral Summary ---
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 Name Role Phone Magdy Grove MD Primary Care Provider + Encounters Date Type Department Care Team Description 10/13/2024 Orders Only [facility] [address] [place] [address] [place] [id number] Alexi Jackson MD Other chronic pain 10/10/2024 Nurse Triage [facility] Specialty Services [address] [place] [phone] Cheryle Barros RN 10/04/2024 Telephone [facility] [address] [place] [address] Medicine [facility] [place] [address] Narda Blake LPN GI Preprocedure; EGD RESCHEDULE 09/26/2024 Telephone [facility] [address] [place] [address] Medicine [facility] [place] [address] [place] [address] Narda Blake LPN GI Preprocedure (Assessment) 09/15/2024 Orders Only [facility] [address] [place] [address] [place] [phone] Magdy Grove MD Other chronic pain 09/15/2024 Orders Only Internal Medicine Magdy Grove MD Other chronic pain 09/08/2024 Telephone [facility] Specialty Services [address] [place] [phone] Chrystal Smith, [place] 09/04/2024 Telephone [facility] [address] [place] [address] Angela Jessica MD 09/01/2024 12:30 PM [employer]AL [employer]IT[employer] SPECIALIST Lab [facility] [address] [place] [phone] Weight loss 09/01/2024 10:45 AM [employer]AL ARCHITECT SPECIALIST Office Visit [facility] [address] [place] [address] [address] [place] [address] Angela Jessica MD Weight loss (Primary Dx); Dysphagia, unspecified type; Hoarseness; Screening mammogram for breast cancer 08/25/2024 Nurse Triage [facility] Specialty Services [address] [place] [phone] Grazyna Pelayo, [place] 08/15/2024 Telephone [facility] [address] [place] [address] Health [address] [place] [phone] Rox Cruz RN 08/11/2024 Telephone [facility] [address] [place] [address] Health [address] [place] [phone] Rox Cruz RN 08/11/2024 Orders Only [facility] [address] [place] [address] Health [address] [place] [phone] Daniel Sotelo MD Other chronic pain from Last 3 Months Allergies Active Allergy Reactions Criticality Noted Date Comments Celecoxib Chest tightness,Shortness of breath High 06/02/2019 Breathing Difficulty Ibuprofen Shortness of breath High 02/15/2018 Breathing Difficulty Naproxen Shortness of breath High 02/15/2018 Breathing Difficulty Tramadol Shortness of breath High 02/15/2018 Breathing Difficulty Medications fluticasone propion-salmet Marlene (Advair Diskus) 250-50 mcg/dose diskus inhalerIndicat ions:Maintenan ce Therapy for Asthma Inhale 1 puff 2 (two) times a day 180 each 3 4 025 Active Additional Information Patient taking differently:1 puff inhalationAs needed, Indications: Maintenance Therapy for Asthma, Informant: Self, Reported on 02/09/2024 acetaminophen (TYLENOL) 500 mg tablet Take 2 tablets (1,000 mg total) by mouth every 6 (six) hours as needed for pain Active prednisoLONE acetate (PRED FORTE) 1 % ophthalmic suspension Administer 1 drop into the left eye 4 (four) times a day 5 mL 11 4 Active losartan (COZAAR) 50 mg tablet Take 1 tablet (50 mg total) by mouth daily 90 tablet 3 4 025 Active albuterol HFA (PROVENTIL HFA,VENTOLIN HFA,PROAIR HFA) 90 mcg/actuation inhalerIndicat ions:Acute Asthma Attack Inhale 2 puffs every 6 (six) hours as needed for wheezing 1 each 2 4 Active cyclobenzaprin e (FLEXERIL) 5 mg tabletIndicati ons:Muscle Spasm Take 1 tablet (5 mg total) by mouth as needed for muscle spasms 90 tablet 1 4 Active naloxone (NARCAN) 4 mg/actuation spray,non-aero solIndications :Chronic pain syndrome Administer 1 spray into affected nostril(s) as needed for opioid reversal Call 911. Administer a single spray in one nostril. Repeat every 3 minutes as needed if no or minimal response. 2 each 3 4 Active omeprazole (PriLOSEC) 40 mg capsule Take 1 capsule (40 mg total) by mouth daily 60 capsule 5 026 Active potassium chloride (KLOR-CON) 20 mEq packet Take 1 packet (20 mEq total) by mouth 2 (two) times a day Dissolve each packet in at least 4 ounces (120 mL) of cold water or other beverage prior to administration. 2 packet 5 026 Active amLODIPine (NORVASC) 10 mg tabletIndicati ons:hypertensi on Take 1 tablet (10 mg total) by mouth daily 90 tablet 3 5 Active atorvastatin (LIPITOR) 40 mg tablet Take 1 tablet (40 mg total) by mouth daily 90 tablet 3 5 026 Active HYDROcodone-ac etaminophen (NORCO) 10-325 mg per tabletIndicati ons:Pain Take 1 tablet by mouth every 6 (six) hours as needed for pain 120 tablet 5 025 Active HYDROcodone-ac etaminophen (NORCO) 10-325 mg per tabletIndicati ons:Pain Take 1 tablet by mouth every 6 (six) hours as needed for pain 120 tablet 5 025 Discontin ued(Reord er) Active Problems Problem Noted Date Diagnosed Date Hoarseness 09/02/2024 Assessment & Plan (09/02/2024 9:26 PM NAVAL ARCHITECT SPECIALIST): 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 Has had hoarseness ongoing for several months now with dysphagia as above. Minimal smoking history. Differential is broad but ranges from malignancy to vocal cord nodules. Will refer to ENT for further investigation. - ENT referral, number provided in AVS Screening mammogram for breast cancer 09/02/2024 Weight loss 09/01/2024 Assessment & Plan (09/02/2024 9:28 PM NAVAL ARCHITECT SPECIALIST): Patient with persistent weight loss, poor appetite despite self-discontinuing Ozempic about four months ago per her report. With associated dysphagia. Has a minimal smoking history but also with hoarse voice. Recent C-scope and CT head/neck as above. Patient also with depression that may be contributing to her weight loss but is not interested in treatment today. No active SI/HI. - CBC, CMP, TSH, HIV, RPR, HepC Ab - EGD - Mammogram ordered - May need further investigation of leukocytosis persistent since 2019 Dysphagia 09/01/2024 Decreased mobility 04/19/2024 Overview (04/19/2024): severe cervical and lumbar spinal stenosis s/p C4-T2 decompression and fusion of L3-L5. Needs F2F for scooter approval. Pt says standing and walking is not an option. Has tried a cane and walker, she leans against arriola to get around the house, has to sit to prepare meals. She lives with and she takes care of him. Has great grandkids that she wants to be able to move around with. Assessment & Plan (04/19/2024 11:36 AM CDT): She shuffles to get around and moves slowly -will approve for mobility scooter S/P cataract extraction, left 02/18/2024 Assessment & Plan (02/24/2024 9:17 AM CDT): POW1 s/p CEIOL OS Doing well. Postop medications: Stop moxifloxacin and Taper prednisonole from QID to TID x 7 days, then BID x 7 days, then QDay x 7 days, then stop. Ok to discontinue loera shield at night. Ok to resume normal activity level but continue to refrain from dirty environments for one month. Reviewed signs/symptoms endophthalmitis, RT/RD; patient to call immediately if any worsening vision, pain, redness, flashes/floaters/curtains. Otherwise, return to clinic in three weeks. Assessment & Plan (02/18/2024 12:30 PM CDT): POD #0 s/p CE/PCIOL OS - Doing well - Prednisolone QID OS - Moxifloxacin QID OS - Reviewed signs/symptoms endophthalmitis, RT/RD; patient to call immediately if any worsening vision, pain, redness, flashes/floaters/curtains - No lifting/bending/swimming. She said that she had been planning to go swimming-- but I strongly encouraged her to refrain from this for 2 weeks due to the risk for a vision-threatening eye infection following surgery. Loera shield while sleeping, protective eyewear during day. - RTC 1 week for IOP check Thyroid nodule 02/09/2024 Overview (03/07/2024): Previously found to have enlarged appearance of right lobe of thyroid with dystrophic calcifications and approximately 2.6 cm hypodense lesion in the right lobe of thyroid on CT chest. Had ultrasound completed on 02/29/24 which was suggestive of underlying thyroiditis, TR5, TI-RADS 10 points, no further follow up recommended. Assessment & Plan (03/07/2024 10:51 AM CDT): - TSH ordered at last appt not yet completed - will clarify w/ radiology regarding recommendations for US findings Enlarged pulmonary artery 02/09/2024 Overview (02/09/2024): Noted to have enlarged pulmonary artery on recent CT scan. Consider TTE next visit. Colon cancer screening 02/04/2024 Screening for colon cancer 11/04/2023 Assessment & Plan (11/04/2023 10:44 AM NAVAL ARCHITECT SPECIALIST): Ordered colonoscopy. Colitis 11/04/2023 Overview (02/09/2024): S/p ED visit in October with abdominal pain and hematochezia. CT scan with moderate colitis involving the proximal descending colon to proximal sigmoid colon. She was given a course of Augmentin with resolution of her symptoms. - Colonoscopy Assessment & Plan (11/04/2023 10:45 AM NAVAL ARCHITECT SPECIALIST): Ordered colonoscopy for follow-up. Primary insomnia 08/06/2023 Assessment & Plan (11/04/2023 10:44 AM NAVAL ARCHITECT SPECIALIST): Refilled trazodone per request. Assessment & Plan (08/06/2023 11:34 AM NAVAL ARCHITECT SPECIALIST): Will try trazodone 50 mg QHS PRN. Vitamin D deficiency 08/06/2023 Overview (02/09/2024): - Recheck vitamin D level today Assessment & Plan (11/04/2023 10:45 AM NAVAL ARCHITECT SPECIALIST): Ordered repeat level, most recently on high-dose supplementation. Assessment & Plan (08/06/2023 11:35 AM NAVAL ARCHITECT SPECIALIST): Checking level to guide supplementation. Hyperlipidemia, unspecified 06/03/2022 Assessment & Plan (08/06/2023 11:36 AM NAVAL ARCHITECT SPECIALIST): Checking lipid panel since resuming statin. Assessment & Plan (05/18/2023 11:00 AM CDT): Based on ASCVD risk score of 24.5%. Was previously on atorvastatin 40 mg but discontinued for unclear reasons. - Restart atorvastatin 40 mg Personal history of nicotine dependence 06/03/20 22 Cervical stenosis of spine 04/21/2022 Overview (03/07/2024): Chronic hx of severe cervical and lumbar stenosis s/p C4-T2 decompression and fusion of L3-5. Assessment & Plan (03/07/2024 10:51 AM CDT): - UDS due today, patient states she is not able to pee during today's appointment and will return at a later time for this, states she is running late for another appointment Spinal stenosis of lumbar re gion with neurogenic claudication 04/21/2022 Overview (07/17/2024): s/p C4-T2 posterior cervical decompression and fusion of posterior L3-L5 2021 She's currently on hydrocodone-acetaminophen 10-325 mg Q6H PRN #120. Prescription was ordered on 07/[address] Bruner. Please see his note for further details. Will obtain a UDS Conjunctival chalasis, bilateral 02/15/2020 Onychomycosis 10/03/2019 Overview (05/09/2020): Did not use the terbinafine due to cost -looks improved from last visit Recurrent iridocyclitis of right eye 07/26/2019 Overview (09/14/2019): - Second recurrence after tapering PF; first recurrence on 07/26 after abruptly tapering PF (resolved after repeat PF taper) - Has trace fine haze on anterior IOL surface but no capsular plaques or vitritis. No TIDs or evidence of IOL malposition on dilated gonioscopy. - Suspect idiopathic prolonged inflammation following CEIOL; patient has risk factors including race and diabetes (see J. Ophthalmic Inflamm. Infect. 2019, 9:4; PMID [id number]). DDx herpetic, uveitis, chronic endophthalmitis (haze on IOL surface although no maryellen plaques). - Better/worse/stable status post (s/p) 2 wks PF at TID dosing, IOP OK (No history of steroid response) - K sensation 09/14/19 Assessment & Plan (03/25/2020 12:59 PM CDT): More inflammation/ conj chalasis than ant uveitis signs today. Rec Discontinue pred forte (PF), but add Lotemax qid right eye (OD). Re-eval 2 weeks. If no improvement (NI), will need corneal referral. Assessment & Plan (09/14/2019 8:54 AM NAVAL ARCHITECT SPECIALIST): - Second recurrence after tapering PF; first recurrence on 07/26 after abruptly tapering PF (resolved after repeat PF taper) - Has trace fine haze on anterior IOL surface but no capsular plaques or vitritis. No TIDs or evidence of IOL malposition on dilated gonioscopy prior - Suspect idiopathic prolonged inflammation following CEIOL; patient has risk factors including race and diabetes (see J. Ophthalmic Inflamm. Infect. 2019, 9:4; PMID [id number]). DDx herpetic, uveitis, chronic endophthalmitis (haze on IOL surface although no maryellen plaques). - Better/worse/stable status post (s/p) 2 wks PF at TID-->qday dosing, IOP OK (No history of steroid response) - K sensation 09/14/19 normal Plan: - Continue 2 wks at PF BID, then PF qday - RTC Richard KRISTIAN 6 wks for IOP/AC check (ok to check tonopen IOP at screen) Assessment & Plan (09/01/2019 11:56 AM NAVAL ARCHITECT SPECIALIST): - Second recurrence after tapering PF; first recurrence on 07/26 after abruptly tapering PF (resolved after repeat PF taper) - Has trace fine haze on anterior IOL surface but no capsular plaques or vitritis. No TIDs or evidence of IOL malposition on dilated gonioscopy. - Suspect idiopathic prolonged inflammation following CEIOL; patient has risk factors including race and diabetes (see J. Ophthalmic Inflamm. Infect. 2019, 9:4; PMID [id number]). DDx herpetic, uveitis, chronic endophthalmitis (haze on IOL surface although no maryellen plaques). - Restart PF TID x2 weeks and re-evaluate. If quiet, initiate very slow taper (consider 1 month at PF BID, then 1 month on PF qday). No history of steroid response. - Check corneal sensation at next follow-up; if decreased, consider Valtrex. If unable to control inflammation, consider sending uveitis work-up and/or second opinion to rule out chronic endoph. Assessment & Plan (07/26/2019 4:05 PM NAVAL ARCHITECT SPECIALIST): - (+) mild rebound inflammation today after abruptly discontinuing PF (had been on QID and then ran out yesterday) - No evidence of endophthalmitis at this time - Restart PF QID and then taper: QID until 07/30, then BID until 08/06, then BID until next follow-up in ~3 weeks. Cyclopentolate BID PRN photophobia. - RTC immediately if worsening vision, pain, redness, photophobia. Pseudophakia, right eye 06/07/2019 Overview (06/07/2019): Added automatically from request for surgery [id number] Assessment & Plan (08/16/2019 10:30 AM NAVAL ARCHITECT SPECIALIST): POW6 s/p CE-IOL right eye (OD), doing well. Much improved pain/photophobia/seeing circles now that we stopped cyclopentolate. PF down to qday x 1 week then stop OD, OK if bottle runs out MRx held for CE/IOL OS OK to resume normal activities Assessment & Plan (08/02/2019 11:23 AM NAVAL ARCHITECT SPECIALIST): POM1 s/p CE-IOL right eye (OD), lots of light sensitivity but patient has been putting cyclopentolate in OU. Resolved AC reaction, no evidence of intraocular inflammation or infection. Patient complaining of circles around things she sees which I suspect are from dilation seeing around the optic. PF BID x 1 week then stop Stop cyclo RTC 1-2 weeks Assessment & Plan (07/19/2019 9:47 AM NAVAL ARCHITECT SPECIALIST): POW#1 s/p CE/PCIOL OD - Doing well. No significant concerns. 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 Patient is highly motivated to have surgery OS. Assessment & Plan (07/05/2019 11:50 AM NAVAL ARCHITECT SPECIALIST): POW#1 s/p CE/PCIOL OD - Doing well. No significant concerns. Mild fibrin with 1+ cell. Does not appear to be ifnectious or vitreous. - Prednisolone QID until next visit. - Ofloxacin QID x 1 more week. - Reviewed signs/symptoms endophthalmitis, retinal tear and detachment; patient to call immediately if any worsening vision, pain, redness, flashes/floaters/curtains - No lifting, bending, or swimming - Loera shield while sleeping, protective eyewear during day. - Return to clinic 2 week Opioid dependence with opioid-induced disorder 0 12/13/2018 Assessment & Plan (04/19/2024 11:33 AM CDT): UDS completed today Assessment & Plan (02/17/2023 2:02 PM CDT): Refilled norco today. UDS today. Assessment & Plan (12/13/2018 5:12 PM CDT): Pain is uncontrolled R now and not a good time to consider opioid wean -management as per for chronic pain Mediastinal mass 12/13/2018 Overview (01/20/2022): Visualized on scans in 2018 and 2021. Had PET scan in 2018 with iodinated uptake suggesting ectopic thyroid tissue. Assessment & Plan (01/11/2022 8:45 PM CDT): Recent admission for SOB, was told she needs to see specialist for mediastinal mass/ectopic thyroid tissue given progressive symptoms and worsening SOB. - Will obtain OSH records and notify PCP to review and decide best next steps - Low threshold to repeat imaging if unable to obtain records Assessment & Plan (12/13/2018 5:10 PM CDT): Anterior mediastinal mass concerning for possible ectopic thyroid tissue per CT chest read 06/2018. TSH/T4 unremarkable 10/2018. No symptoms/signs of hyper/hypothyroidism. PLAN: -nuclear thyroid scan -consider additional workup and referral to surgery pending results of imaging Pulmonary nodule less than 6 cm determined by computed tomography of lung 08/01/2018 Overview (12/13/2018): CT-C 2009: 6mm nodule and mediastinal LAD CT-C 06/2018: 4 mm R lower lobe nodule Assessment & Plan (12/13/2018 5:12 PM CDT): -Repeat chest CT w/contrast, June 2019 Assessment & Plan (08/01/2018 5:38 AM NAVAL ARCHITECT SPECIALIST): NEEDS f/u imaging- has been deferred 2/2 cost GERD (gastroesophageal reflux disease) 8 Overview (08/01/2018): PPI to ranitidine 2/2 cost Sensorineural hearing loss (SNHL) 08/01/2018 Overview (08/01/2018): ENT 05/2014: sensoneurial hearing loss; pt declines hearing aides JAIMEE (obstructive sleep apnea) 07/27/2018 Overview (10/04/2022): Non-compliant with CPAP because of claustrophobia. Assessment & Plan (10/04/2022 7:47 PM NAVAL ARCHITECT SPECIALIST): Reporting worsening daytime somnolence today, which is likely combination of untreated JAIMEE + polypharmacy. -Previously referred to sleep medicine, but did not re-establish. Offered referral again today, but declined. Assessment & Plan (06/16/2019 12:37 PM CDT): - Re-referred to Sleep Medicine today Assessment & Plan (07/27/2018 7:52 AM NAVAL ARCHITECT SPECIALIST): - noncompliant with CPAP: refuses CPAP tx due to discomfort - Has been counseled on the risks of CPAP noncompliance including permanent heart damage, irreversible pulmonary hypertension, sudden from cardiac arrythmias, pt expresses understanding of risks and prefers to not use CPAP Asthma 07/27/2018 Overview (08/01/2018): Asthma w/ exacerbations in setting of allergies PFT 12/2009: mod obstructive defect (FEV1/FVC 68%, FEV1 62%), responsive to bronchodilator (%change FEV1 22, 610cc), air trapping, decreased DLCO (43%) Regimen: albuterol, advair, zyrtec, flonase Assessment & Plan (11/04/2023 10:44 AM NAVAL ARCHITECT SPECIALIST): Refilled Advair per request. Assessment & Plan (08/01/2018 5:51 AM NAVAL ARCHITECT SPECIALIST): Cont current regimen-- add flonase for additional rhinitis control Assessment & Plan (07/27/2018 7:52 AM NAVAL ARCHITECT SPECIALIST): - Stable,continue advair and albuterol Healthcare maintenance 07/27/2018 Overview (10/03/2019): [facility] - HgbA1c (for pts c BP >135/80): Repeat next time blood drawn, focused on weight loss today - Lipids (women >45 or high risk): TC 192, TG 155, HDL 64, LDL 97 (01/2014) - DEXA (women >65 or high risk): Discuss at 65 yoa Cancer - Colonoscopy (age 50-75): poor prep 07/2011, F/U: Normal (05/2019) - Mammogram (women age 50-74): BI-RADS 1 (2005) -> reordered today - Pap (women 21-65): Referred to [facility] today - Lung (4 mm RLL nodule on 06/2018 CT): Repeat low-dose chest CT unchanged Infectious Disease - HIV (age 15-65): Consider at next visit - HBV (if at high risk): N/A - HCV ( [id number]): Consider at next visit Immunizations - Influenza (annually): Administered 05/2019 - Td/Tdap (q10 years): Discuss at next visit - PPSV23 (age >65, immunocomp, DM, CKD, heart dz, lung dz, liver dz, EtOH, asplenia): Discuss at next visit - PCV13 (age >65, immunocomp, CKD, asplenia): 08/2017 - Shingles (age >60): Discuss at next visit - HBV (DM, HIV, MSM, liver dz, CKD, healthcare workers): CONSIDER Assessment & Plan (01/11/2022 8:50 PM CDT): - Update screening labs - COVID booster #2 in office Assessment & Plan (12/13/2018 5:07 PM CDT): -mammogram -OBGYN referral for final well-woman's exam -Pneumovax Jun -She wants to defer C-scope for now, consider at future OV Assessment & Plan (08/01/2018 5:34 AM NAVAL ARCHITECT SPECIALIST): NEEDS colonoscopy, mammogram, PAP smear-- has deferred all multiple times due to costs (self-pay) Flu shot today (05/2018) Assessment & Plan (07/28/2018 8:44 AM NAVAL ARCHITECT SPECIALIST): COLONOSCOPY (07/2011): poor prep, DUE 07/2016 (ordered today 07/27/18) MAMMOGRAM (2005): wnl per pt, DUE: ordered 07/27/18 Cervical Ca/Pelvic exam: address next visit with PCP IMMUNIZATIONS: -Influenza (05/2017): DUE 05/2018 -Pneumovax (07/2017 PCV13): - Tdap: Patient reports having immunization though not record per chart review Allergic rhinitis 03/18/2018 Overview (03/18/2018): Living in a new building, feels like sneezing more and more frequent asthma attacks Assessment & Plan (03/18/2018 10:00 AM CDT): Start zyrte Controlled type 2 diabetes gabriela anne without complication, without long-term current use of insulin ([facility]) 11/30/2016 Overview (03/07/2024): Last A1c 6/1% on 05/18/23. Currently prescribed ozempic 2mg weekly. Patient today requests for higher dose of ozempic. Assessment & Plan (03/07/2024 10:50 AM CDT): - unclear if patient is currently taking ozempic 1mg or 2mg, she believes she is still on 1mg. Will refill prescription for 2mg - labs ordered at last appt not yet completed (lipid panel, A1c), patient states she is running late today and will complete at a later time Assessment & Plan (11/04/2023 10:45 AM NAVAL ARCHITECT SPECIALIST): Checking annual labs today. Did not have enough urine to send UACR. This year still needs UACR, foot exam, eye exam. Increased semaglutide to 2 mg weekly, tolerating well. Assessment & Plan (08/06/2023 11:35 AM NAVAL ARCHITECT SPECIALIST): Increased semaglutide to 1 mg weekly. Assessment & Plan (05/18/2023 10:58 AM CDT): - Takes Semaglutide 0.25 mg weekly. Will uptitrate to 0.5 mg weekly. - A1C today Assessment & Plan (02/17/2023 2:01 PM CDT): Given history of DM2 and obesity, will trial GLP-1RA. Ozempic ordered. Though she may have difficulty getting this covered due to her insurance issues. Can see if this or a similar agent in this class would be covered once her [facility] prescription drug coverage resumes 02/27/23. She is working on swimming again, but lifestyle modifications have been difficult given her mobility issues, surgical history. Assessment & Plan (01/11/2022 8:42 PM CDT): - Update HbA1c, lipid panel, CMP today - Foot exam and microalbumin at next visit Assessment & Plan (06/16/2019 12:41 PM CDT): - Counseled patient to stop taking glipizide (discontinued at last visit due to hypoglycemia) - Continue metformin 1 g BID (refilled today) - Repeat HgbA1c today - Repeat urine microalb/Cr ratio and foot exam at next visit Assessment & Plan (03/23/2019 12:31 PM CDT): Patient presenting with history of hypoglycemic episodes for which she discontinued metformin intake - discussed at length importance of medication compliance - discontinue glipizide 5mg daily - continue metformin 1 g twice a day - A1c today 5.4% (pt well controlled) and would be reflection of recent weight loss - continue atorvastatin 40mg Assessment & Plan (12/13/2018 5:00 PM CDT): Diabetes is stable #. Diabetes mellitus, type 2, at goal PLAN: -Medical management: Continue metformin and glipizide the -check A1c SCREENING: -Nephropathy screening yearly: Cr at baseline October 2018, proteinuria screen ordered today -Retinopathy screening yearly: Follows with Ophthalmology -Neuropathy screening yearly : NOV Assessment & Plan (11/01/2018 10:40 AM NAVAL ARCHITECT SPECIALIST): No evidence of diabetic retinopathy on exam today. Lab Results Component Value Date HGBA1C 6.4 (H) 03/31/2017 Insulin independent. Plan Educated patient on ocular complications of diabetes including blurry vision, risk of cataracts, and risk of blindness Emphasized the importance of blood glucose and blood pressure control per PCP to minimize ocular complications Yearly dilated eye exam Assessment & Plan (09/29/2018 11:20 AM NAVAL ARCHITECT SPECIALIST): Pt declined dilation today, no evidence of diabetic retinopathy on last exam in 2013 -- will need DFEx prior to surgery Assessment & Plan (08/01/2018 5:19 AM NAVAL ARCHITECT SPECIALIST): Well controlled, cont current regimen Assessment & Plan (07/28/2018 8:42 AM NAVAL ARCHITECT SPECIALIST): well controlled. A1C <6.5 (11/2017) - Continue Metformin 1000 bid/Glipizide 2.5 -Retinopathy screening (07/2014): DUE/Scheduled 09/2017 -Nephropathy Screenin07/28/18 MIcroalbumin (02/2016): negative. Sent 12/2017 -Neuropathy: negative (09/16/2017) - HLD: last lipid is 2013, on atorvastatin 40mg. Will need repeat testing, but will defer until financial assistance approved Assessment & Plan (03/18/2018 10:41 AM CDT): Refilled metformin/glipizide Episode of recurrent major depressive disorder 1 Overview (04/19/2024): Sx with inappropriate crying, depressed mood. Denies SI/HI today. - Strongly recommended medications Assessment & Plan (04/19/2024 11:32 AM CDT): -start venlafaxine 37.5mg once daily Assessment & Plan (08/06/2023 11:36 AM NAVAL ARCHITECT SPECIALIST): Encouraged therapy follow-up, let her know to reach out if she is interested in medication. Denies SI or thoughts of self-harm. Willing to try sleep medicine but does not want antidepressant. OK with trazodone as elsewhere. Assessment & Plan (08/01/2018 5:36 AM NAVAL ARCHITECT SPECIALIST): Pt states mood is a little improved today. She is no longer taking zoloft. Assessment & Plan (07/27/2018 7:51 AM NAVAL ARCHITECT SPECIALIST): - no SI/HI. - Contiue Aqua therapy at the [facility], contiunue meeting with pastor avery Assessment & Plan (03/18/2018 2:32 PM CDT): Provided supportive therapy Pt declines SNRI Recommend more exercise, social support Essential (primary) hypertension 11/29/2011 Overview (07/17/2024): Patient takes amlodipine 10mg and losartan 50mg (increased last visit 03/07/24) BP today 112/66 Continue regimen as above Assessment & Plan (04/19/2024 11:31 AM CDT): Cont current amlodipine 10 and losartan 50 Assessment & Plan (03/07/2024 10:51 AM CDT): - increase losartan to 50mg daily Assessment & Plan (02/17/2023 2:00 PM CDT): BP 141/68, given history of falls and age, goal would be <140/90 for her. Continue current regimen of amlodipine 10 mg daily Assessment & Plan (01/11/2022 8:41 PM CDT): BP above goal today, but pain has been very poorly controlled. - Continue amlodipine 10 mg daily - Pain control - If persistently elevated in future, would add additional agent Assessment & Plan (11/02/2020 11:42 AM NAVAL ARCHITECT SPECIALIST): - SBP remains above goal on Amlodipine 10mg - Will add HCTZ 12.5 daily today - She remembers her lips puffing up with a -pril medication - Need to clarify further at follow-up Assessment & Plan (06/16/2019 12:41 PM CDT): BP 144/70 (above goal) today, but in setting of not taking her BP meds. - Counseled patient on importance of daily adherence - Continue regimen above (refilled today) Assessment & Plan (03/23/2019 12:29 PM CDT): Blood pressure at goal, BP today 110/70 - continue current regimen amlodipine 10 mg daily, carvedilol 6.25 mg twice a day (meds refilled) - last BMP on 11/25/2018 with normal kidney function and mild hypokalemia (K 3.3) Assessment & Plan (12/13/2018 5:13 PM CDT): BP is at goal. Metabolic panel October 2018 at baseline. -continue current antihypertensives Assessment & Plan (08/01/2018 5:22 AM NAVAL ARCHITECT SPECIALIST): Mildly elevated BP 148/73 today CTM, consider increasing carvedilol if cont to be elevated Assessment & Plan (07/28/2018 8:41 AM NAVAL ARCHITECT SPECIALIST): - Currently on Losartan 100/HCTZ 25 and amlodipine 10 mg qd - BP not at goal, start Carvedilol 6.25 mg BID - Patient instructed to contact the clinic if she starts experience acute worsening of her asthma. Assessment & Plan (03/18/2018 10:40 AM CDT): Refilled amlodipine and hyzaar Resolved Problems Problem Noted Date Diagnosed Date Resolved Date Debility 08/06/2023 11/04/2023 Assessment & Plan (08/06/2023 11:34 AM NAVAL ARCHITECT SPECIALIST): Has worked with PT previously, uses cane at baseline. Requests motorized scooter for increased mobility. Filled out paperwork and given to nurse Ervin. Also referred to HHPT. Flank pain 02/17/2023 11/04/2023 Assessment & Plan (02/17/2023 2:04 PM CDT): Reproducible TTP and no urinary/abdominal or systemic symptoms. UA was unremarkable. - Reassured patient that she does not have a UTI and she can stop taking azo - Given high suspicion for muscle strain/spasm, discussed hot/cold packs, stretching exercises, tylenol. 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 Acute pain of both knees 09/02/202202/2024 Overview (09/02/2022): Reports new onset of bilateral knee pain since her surgery. Denies trauma to knees or falling on them, but notes recent falls and feeling her knees give out. Has ortho appt scheduled in September. No maryellen swelling noted on inspection. Offered bilateral knee XR to be ordered and completed today but patient would like to defer further workup until her appt with Ortho. - pending ortho appt Flu vaccine need 09/02/2022 11/04/2023 Encounter for vaccination 09/02/2022 Assessment & Plan (08/06/2023 11:35 AM NAVAL ARCHITECT SPECIALIST): Flu, Covid shots today. Fall 09/02/2022 11/04/2023 Overview (09/02/2022): Patient reports history of falls. Notes one fall prior to her spinal surgery and since surgery having a handful of falls. She denies lightheadedness, vertigo, episodes of blacking out with falls. Denies tripping prior to falls. Feels her knees will just suddenly give out. BP above goal but wnl today. No signs or symptoms of cord compression (B/B incontinence, saddle anesthesia). Etiology of falls is unclear, some considerations include deconditioning (post surgery, but working with PT), orthostasis (but less likely given no symptoms). She is working closely with PT on safe transfers. She has a walker she uses to ambulate. 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 06/03/2022 11/04/2023 Other emt intermediate (current) drug therapy 06/03/2022 11/04/2023 COVID-19 05/31/2022 11/04/2023 Spinal stenosis of cervical region 05/27/2022 11/04/2023 Disease of spinal cord, unspecified 05/27/2022 11/04/2023 Encounter for other orthopedic aftercare 05/27/2022 11/04/2023 Lower extremity pain, right 07/18/2021 10/17/2021 Assessment & Plan (07/18/2021 10:36 AM NAVAL ARCHITECT SPECIALIST): As described in the [facility] note 07/18 - Unclear etiology and physical exam provides no insight - Plan for XR imaging given recent falls - Encourage Voltaren and adjuvant pain therapies. Bradycardia 02/14/2020 10/17/2021 Assessment & Plan (02/14/2020 4:34 PM CDT): Pulse was initially high 30s, low 40s when patient first presented to clinic. I was concerned about AV block given her recent bout of chest pain, but EKG demonstrated PACs with every other beat, rate of 71. Patient without symptoms of bradycardia today, blood pressure stable. - Check BMP, Mg (patient notes history of hypokalemia) - Advised to seek medical attention if symptoms of CP, SOB, dizziness, palpitations, presyncope/syncope were to occur - OFFICE SPECIALIST stress echo given recent chest pain and risk factors for CAD - Consider Holter or loop recorder if recurrent - Close in-person follow up within 1 week (with PCP if possible) Macrocytosis without anemia 02/14/2020 11/04/2023 Assessment & Plan (02/14/2020 4:17 PM CDT): Rise in MCV from 90 to 101 over the last year, with persistent neutrophilic and lymphocytic leukocytosis. Patient denies recent alcohol use, but would also consider folate/B12 deficiency, MDS given chronic constitutional symptoms -- of note, patient is not anemic, with Hgb of 13.1 in 01/2020. - check BMT CBC (includes manual diff) - check folate, B12 Chest pain 02/14/2020 02/02/2021 Overview (05/09/2020): Episode of CP w/ negative w/u in ED in January 2020 -referred to cards given grandson's SCD and patient w/ bradycardia and bigeminy -did not schedule her echocardiogram -encouraged to schedule stress TTE and cards apt Assessment & Plan (02/14/2020 4:24 PM CDT): Patient reports recent episode of chest pain with ED visit, told it was not a heart attack. She does have risk factors for CAD, including DM2 and HTN, although these are well controlled. Bradycardic on initial vitals and exam, but rate 71 with frequent PACs on EKG. - OFFICE SPECIALIST stress echo - follow up in 1 week Discoloration of skin of toe 02/14/2020 02/02/2021 Assessment & Plan (02/14/2020 4:30 PM CDT): Patient has had complaint of discoloration of toes for at least one month. Given pedal edema on exam, suspect venous insufficiency or tight shoes, possibly exacerbated by sun exposure. She had good pedal pulses and capillary refill, so I am not concerned about arterial insufficiency at this time. Toe nails difficult to assess as they were neatly pedicured, with false nails covering the one(s) that she reports falling off. She has not tried the topical terbinafine previously prescribed to her. - Advised elevation and compression stockings, can try topical terbinafine if concerned about fungal infection - CTM - schedule with diabetic foot nurse as soon as able Weight loss, unintentional 06/16/2019 0 11/04/2023 Overview (02/14/2020): Patient has reportedly lost about 100 lbs over the past year. Concerning for malignancy. Patient is overdue for multiple cancer screening tests. Workup thus far unrevealing: CT CAP negative for malignancy, showed stable ectopic thyroid tissue; bx of thyroid nodule benign, TSH WNL, colonoscopy 05/2019 normal -referred multiple times to OBGYN for Pap and for mammogram are the only outstanding malignancy w/u and she says she won't get either AM cortisol 19.6 in 11/2019 EGD to eval for alternative causes of weight loss and occasional nausea w/o evidence of any cause for her weight loss including negative histology for celiac dx. Concerned that depression is at minimum contributing to this weight loss. Had discussion about link between physical and mental health but patient still adamant that she won't take any medications or do any counseling because it 'won't work'. Discussion from 11/2019 visit: We discussed her mood again today and she seemed somewhat improved from prior but still notes sx of depression. We discussed increasing her dietary supplementation to 2 ensures per day and she was hesitant but agreeable to try. Will continue to build therapeutic relationship and ongoing discussion about counseling, medications, psychiatry referral, etc. Assessment & Plan (02/14/2020 4:21 PM CDT): Weight appears stable today compared to last few months. Patient continues to be distraught about weight loss. - work up of bradycardia / chest pain as elsewhere - work up of macrocytosis / leukocytosis as elsewhere Assessment & Plan (06/16/2019 12:47 PM CDT): - C-scope on 06/02 was normal - Ordered repeat low-dose chest CT, thyroid US, screening mammogram today -> consider thyroid biopsy if enlarging or malignant features - Referred to Hand Cementer today - Repeat L-spine X-ray today - Check TSH reflex to free T4, CMP, CBC - Consider EGD in the future if above work-up unrevealing Screening for colon cancer 03/23/2019 0 02/02/2021 Bereavement 02/21/2019 07/18/2021 Overview (02/21/2019): Has 1 week of sx of sadness, crying, and insomnia in setting of multiple deaths in her family -feels supported by her family and denies any SI/HI -requesting diazepam today as she has gotten in the past when she could not sleep -discussed alternatives and patient does not want to try any new medications (trazodone specifically) -discussed she can have 2 mg diazepam with three pills only and this was a one time thing -if symptoms persist, will have ongoing discussion about SSRI, therapy Class 3 severe obesity due t o excess calories with serious comorbidity and body mass index (BMI) of 45.0 to 49.9 in adult 08/01/2018 4 Overview (02/21/2019): Has lost almost 30 lbs in the past 4 months -congratulated patient and stressed continuing daily exercise and dietary changes Assessment & Plan (02/17/2023 2:02 PM CDT): See diabetes. Continue lifestyle modifications. She would benefit from a GLP1RA Assessment & Plan (12/13/2018 4:56 PM CDT): #. Obesity, Class III, Body mass index is 45.33 kg/m . -2/2 excess caloric intake -Currently not at goal 150 min/wk moderate aerobic exercise Has been working hard on calorie restriction, she has lost some weight but BMI still 45. Weight undoubtedly exacerbating her severe back pain. PLAN: -counselor to continue portion control, limiting sugary beverages, calorie restriction -Lifestyle modification, Goal 5-10% weight loss within 6 months, but given the failure thus far, we discussed considering bariatric options -Regular exercise as tolerated, she will do mostly pool exercises given her activity limiting back pain -patient will self refer to Bariatric surgery, will start with informational session, we provided her the contact information for [facility] Bariatric surgery Assessment & Plan (08/01/2018 5:41 AM NAVAL ARCHITECT SPECIALIST): Obesity is stable Combined forms of age-relate d cataract of left eye 08/01/2018 02/18/2024 Assessment & Plan (09/01/2019 11:57 AM NAVAL ARCHITECT SPECIALIST): - Recommend holding off on CEIOL on inflammation is resolved off topical steroids Assessment & Plan (08/16/2019 10:30 AM NAVAL ARCHITECT SPECIALIST): Again discussed r/b/a of CE/IOL. Patient has not had history of prolonged inflammation in this eye. Aim distance plano to match other eye. Patient eager to receive surgery, will wait until a libertarian she must coordinate 09/19/19. Assessment & Plan (07/26/2019 4:02 PM NAVAL ARCHITECT SPECIALIST): - Visually significant; patient wishes to hold off on CEIOL OS until inflammation OD has resolved off drops Assessment & Plan (06/06/2019 10:45 AM CDT): UES Cataract Pre-Op Note HPI: Cat Reese is a 63 y.o. y/o female who presents for cataract evaluation. They have noticed progressive loss of vision over the last few years, and feel that surgery would help enhance vision & quality of life. Ocular ROS: Glare Yes Halos Yes Trouble driving Yes Trouble reading Yes All other ROS negative unless noted in HPI. Active ocular issues: 1) Cataract both eyes (OU) Ocular History: Amblyopia No Vitrectomy No Scleral buckle No Intravitreal Injections No Laser refractive surgery No History of ocular trauma No History of serious eye infection No Medical History: Past Medical History: Diagnosis Date Arthritis Asthma Cataracts, bilateral 08/01/2018 Chronic back pain GERD (gastroesophageal reflux disease) Hyperlipidemia Hyperplasia of thyroid on biopsy 2009 L-thyroidectomy with path showing nodular hyperplasia Hypertension Medical ROS: 1) Angina present? No 2) Cough or orthopnea? No 3) Dyspnea on exertion? No 4) Has sleep apnea/wears CPAP? Yes 5) Patient is able to lie flat for at least one hour Yes Current medications: Systemic medications per EMR Flowmax/Hytrin No ASA/Coumadin/Plavix Yes (ASA with headaches, not currently) Allergies: Allergies Allergen Reactions Motrin [Ibuprofen] Shortness of breath Naproxen Shortness of breath Tramadol Shortness of breath Celebrex [Celecoxib] Chest tightness Latex allergy: No Cataract specific exam findings: Prominent brow No Dense arcus No K spindle No Guttae No PXE material No TIDs No Phacodonesis No Posterior synechiae No L/I step off No Mature/white No Dominant Eye: the right eye Dilates to: OD 7 mm OS 7 mm Tolerates gonioscopy: fair Assessment and Plan 1. Visually Significant Cataract of the both eyes - Patient interested in having CE/IOL of the right eye - R/B/A of surgery discussed in detail with patient including but not limited to infection, bleeding, persistent inflammation, diplopia, ptosis, need for further surgeries, need for spectacle correction after surgery, possible loss of vision, possible loss of the eye, and risks of anesthesia. - The patient understands these risks and wishes to proceed. - Target refraction was discussed with the patient. We discussed near, distance, and monovision; we also discussed multifocal and toric lenses. The patient elected to target plano. - Best phone number at which to reach patient: [phone] (home) Planned Operation: CE/IOL the right eye Time: 45 minutes Anesthesia: MAC; If general anesthesia, reason: may convert if patient claustrophobic Local: subtenon Special equipment: Trypan 23 Hr Stay?: No Preop meds: None Med Clearance: CPAP IOL Master: Done today Additional perioperative testing/procedure needed?: None Assessment & Plan (11/01/2018 10:39 AM NAVAL ARCHITECT SPECIALIST): JUAN CARLOS Cataract Pre-Op Note HPI: Cat Reese is a 63 y.o. y/o female who presents for cataract evaluation. They have noticed progressive loss of vision over the last few years, and feel that surgery would help enhance vision & quality of life. Ocular ROS: Glare Yes Halos Yes Trouble driving Yes Trouble reading Yes All other ROS negative unless noted in HPI. Active ocular issues: 1) Cataract both eyes (OU) Ocular History: Amblyopia No Vitrectomy No Scleral buckle No Intravitreal Injections No Laser refractive surgery No History of ocular trauma No History of serious eye infection No Medical History: Past Medical History: Diagnosis Date Arthritis Asthma Cataracts, bilateral 08/01/2018 Diabetes mellitus (CMS/HCC) Hyperplasia of thyroid on biopsy 2009 L-thyroidectomy with path showing nodular hyperplasia Hypertension Personal history of other endocrine, nutritional and metabolic disease History of diabetes mellitus - (Added by TW Conv) Medical ROS: 1) Angina present? No 2) Cough or orthopnea? No 3) Dyspnea on exertion? No 4) Has sleep apnea/wears CPAP? Yes 5) Patient is able to lie flat for at least one hour Yes Current medications: Systemic medications per EMR Flowmax/Hytrin No ASA/Coumadin/Plavix Yes (ASA with headaches, not currently) Allergies: Allergies Allergen Reactions Motrin [Ibuprofen] Shortness of breath Naproxen Shortness of breath Tramadol Shortness of breath Latex allergy: No Cataract specific exam findings: Prominent brow No Dense arcus No K spindle No Guttae No PXE material No TIDs No Phacodonesis No Posterior synechiae No L/I step off No Mature/white No Dominant Eye: the right eye Dilates to: OD 7 mm OS 7 mm Tolerates gonioscopy: fair Assessment and Plan 1. Visually Significant Cataract of the both eyes - Patient interested in having CE/IOL of the right eye - R/B/A of surgery discussed in detail with patient including but not limited to infection, bleeding, persistent inflammation, diplopia, ptosis, need for further surgeries, need for spectacle correction after surgery, possible loss of vision, possible loss of the eye, and risks of anesthesia. - The patient understands these risks and wishes to proceed. - Target refraction was discussed with the patient. We discussed near, distance, and monovision; we also discussed multifocal and toric lenses. The patient elected to target plano. - Best phone number at which to reach patient: [phone] (home) Planned Operation: CE/IOL the right eye Time: 90 minutes Anesthesia: MAC; If general anesthesia, reason: may convert if patient claustrophobic Local: subtenon Special equipment: Trypan 23 Hr Stay?: No Preop meds: None Med Clearance: CPAP IOL Master: Done today Additional perioperative testing/procedure needed?: None Assessment & Plan (09/29/2018 11:25 AM NAVAL ARCHITECT SPECIALIST): Visually significant combined nuclear and cortical cataracts OU. Pt with worsening blurry vision, and glare at night interfering with her ability to drive. -- BCVA 20/25- at near with bright light, 20/30 at distance -- BATs to 20/50 OU -- MRx done today -- pt declined dilation today as she was concerned about her ability to drive home, but will bring a straddle truck driver for her pre-op visit -- discussed risks and benefits of the procedure, and what to expect for the procedure and follow up -- pt expressed concern about tolerating surgery without sedation due to anxiety about manipulation of her eye -- she has financial assistance arranged through [facility], but still needs her [place] paperwork, which was provided today -- follow up with Dr. Chaves for cataract pre op vist Assessment & Plan (08/01/2018 5:52 AM NAVAL ARCHITECT SPECIALIST): Patient is self-pay. Is is awaiting financial assistance for cataract surgery and or new glasses. She is also due for retinopathy screening. Offered referral to [facility]-opimetric center- pt declined Headache 03/18/2018 02/02/2021 Overview (03/18/2018): Intermittent, 03/08, non-triggered, possibly due to stress. Pt not taking anything for it Assessment & Plan (03/18/2018 10:38 AM CDT): Tylenol prn Psychophysiological insomnia 03/18/2018 11/04/2023 Overview (03/18/2018): No trouble falling asleep, but difficulty remaining asleep. Sleep poor because of RUBIO and stress/anxiety Assessment & Plan (03/18/2018 10:45 AM CDT): Pt declines sleep meds, was considering amitriptyline Recommend walking in mornings to cope with stress and better regulate sleep cycle Chronic pain 06/10/2011 04/19/2024 Overview (02/09/2024): Chronic Pain Management Diagnosis: Chronic LBP 2/2 spinal stenosis s/p C4-T2 posterior cervical decompression and fusion of posterior L3-L5 2021 Current pain regimen: [place] 10-325 q6h prn - UDS today Assessment & Plan (11/04/2023 10:44 AM NAVAL ARCHITECT SPECIALIST): Due for UDS and pain contract, both done today. Assessment & Plan (08/06/2023 11:35 AM NAVAL ARCHITECT SPECIALIST): UDS today, refilled meds (see prior orders only note). Assessment & Plan (05/18/2023 10:59 AM CDT): - Refilled cyclobenzaprine today. - UDS today Assessment & Plan (10/29/2022 11:35 AM NAVAL ARCHITECT SPECIALIST): Chronic Pain Management Diagnosis: Chronic LBP 2/2 spinal stenosis s/p C4-T2 posterior cervical decompression and fusion of posterior L3-L5 2021 Current pain regimen: Hydrocodone 10-325 mg Q6H PRN #112 Current adjunct medications/therapies: lidocaine, flexeril, lyrica Date pain agreement signed (update annually): August 2022 Pain agreement violations/concerning behavior: Grandson took remainder of her pills in 12/2021 and ran out early. UDS on re-establishing care with [facility] positive for benzodiazepines and hydrocodone (not prescribed since 12/2021 per PDMP). Re- testing today for benzodiazepines. If UDS appropriate, will switch to every 3 months. Assessment & Plan (10/04/2022 7:56 PM NAVAL ARCHITECT SPECIALIST): - Discussed inappropriately positive UDS at last appointment. Specifically, we discussed that this is a violation of the pain contract, which she has previously been familiar with. However, this is her first UDS on return to care with this clinic. Ideally, would await results of UDS prior to filling next month. However, she is limited in her transportation options and cannot have opioids delivered to her house via delivery pharmacy. Therefore, will obtain UDS and fill 1 month of medication. Will have her return for in-person appointment in 1 month. - Given preference of hydrocodone over oxycodone, violations as above, and concerns of daytime somnolence, gave patient option of remaining on current regimen or equivalent number of pills of hydrocodone (which would be 40 MME). She opted to transition to hydrocodone, acknowledging lower MME. - Hydrocodone-APAP 10mg-325mg q6h (#112) prescribed. 28 day supply given, as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 mineral density of the lumbar spine is normal. There has been no significant change in bone mineral density since the baseline examination of 02/18/2021. 2. The bone mineral density of the left femoral neck is mildly decreased. There has been a statistically significant decrease in bone mineral density since the baseline examination of 02/18/2021. 3. The bone mineral density of the left total hip is normal. There has been no significant change in bone mineral density since the baseline examination of 02/18/2021. 4. Overall, the above findings are diagnostic of low bone mass (osteopenia) by WHO criteria. 5. Based on the FRAX fracture risk model, the 10-year probability for major osteoporotic fracture is 8.7% and that for hip fracture is 1.8%. This 10-year fracture risk estimate was calculated using the risk factors noted in the history above, along with the femoral neck bone density. FRAX is intended to help guide treatment decisions in men over age 50 and postmenopausal women with low bone mass (osteopenia). The National Osteoporosis Foundation (NOF) recommends that FDA-approved medical therapies be considered in postmenopausal women and men age 50 years and older with osteoporosis and those with low bone mass whose 10-year fracture probability by FRAX is >= 20% for major osteoporotic fracture or >= 3% for hip fracture. However, all treatment decisions require clinical judgment and consideration of individual patient factors, including patient preferences, comorbidities, previous drug use, risk factors not captured in the FRAX model (e.g., frailty, falls, vitamin D deficiency, increased bone turnover, interval significant decline in bone density) and possible under- or overestimation of fracture risk by FRAX. General comments regarding interpretation of bone density measurements: A) In children, premenopausal woman and males under age 50 not at increased risk for fractures only Z-scores, not T-scores are used to indicate risk. A Z-score above -2.0 is defined as within the expected range for age and Z-score at or less than -2.0 is below the expected range for age . A Z-score below the expected range for age in a patient with recent fractures and/or chronic corticosteroid treatment is consistent with a diagnosis of osteoporosis. B) In post menopausal women and males over 50, comparison of the measured bone mineral density with the average value in young normal subjects (the T-score ) has been found to be useful in assessing fracture risk. Fracture risk approximately doubles for each 1.0 standard deviation (SD) in individual's hip or spine bone mineral density is below the average value of young normal subjects. The World Health Organization (WHO) has defined T-scores of -1.0 to -2.5 as diagnostic of low bone mass (OSTEOPENIA), and T-scores of -2.5 or lower to be diagnostic of OSTEOPOROSIS, based on the site of lowest bone density. Note that there will be a change in reporting format and reference databases as patients move from the younger population (group A) to the older population (group B) The National Osteoporosis Foundation (www.nof.org) recommends adequate intake of calcium and vitamin D and regular weight-bearing exercise in all patients. They recommend pharmacologic treatment in postmenopausal women and men age 50 and older presenting with any of the followin) Osteoporosis, after appropriate evaluation to exclude secondary causes. 2) A hip or vertebral (clinical or radiographic) fracture, regardless of the bone density. 3) Low bone mass (Osteopenia) and one or more of: other prior fractures, secondary causes associated with high risk of fracture (such as glucocorticoid use or total immobilization), or computed high risk of fracture (10-yr probability of hip fracture >= 3% or a 10-yr probability of any major osteoporosis-related fracture >= 20% based on the [place].-adapted WHO algorithm), available at http://www.shef.ac.uk/FRAX). Dictated by: Mekhi Hernandez MD The radiology attending physician has personally reviewed this study, and had reviewed and/or edited this written report and agrees with it. Electronically signed by: Quincy Javier M.D. Narrative 06/24/2023 1:58 PM CDT BONE DENSITOMETRY OF THE SPINE AND HIP DATE OF STUDY: 06/24/2023 HISTORY: 67-year-old postmenopausal woman with diabetes. Status post hysterectomy. Status post spinal fusion. She is being treated with no bone medications. Evaluate bone mineral density. Additional risk factors for fracture: parental fracture, increased risk of secondary osteoporosis. FINDINGS (SPINE): The bone mineral density of L1, L2 was assessed by dual-energy x-ray absorptiometry. The average bone mineral density within this region is 0.985 gm/sq-cm. This is 1.3 standard deviations above the mean of the average bone mineral density for age- and gender-matched subjects (the Z-score). It is 0.1 standard deviations above the mean peak bone mineral density in young adults (the T-score). L3-L4 were removed from analysis because of spinal hardware. FINDINGS (FEMORAL NECK): The bone mineral density of the left femoral neck was assessed by dual-energy x-ray absorptiometry. The average bone mineral density within the femoral neck region is 0.579 gm/sq-cm. This is 1.2 standard deviations below the mean of the average bone mineral density for age- and gender-matched subjects (the Z-score). It is 2.4 standard deviations below the mean peak bone mineral density in young adults (the T-score). FINDINGS (TOTAL HIP): The bone mineral density of the left hip was assessed by dual-energy x-ray absorptiometry. The average bone mineral density within the total hip region is 0.832 gm/sq-cm. This is 0.2 standard deviations below the mean of the average bone mineral density for age- and gender-matched subjects (the Z-score). It is 0.9 standard deviations below the mean peak bone mineral density in young adults (the T-score). SUMMARY OF CURRENT RESULTS: Region BMD T-score Z-score AP Spine (L1, L2) 0.985 0.1 1.3 Femoral Neck (Left) 0.579 -2.4 -1.2 Total Hip (Left) 0.832 -0.9 -0.2 COMPARISON WITH PREVIOUS RESULTS Region Age BMD T-score BMD Change BMD Change Exam Date g/cm2 vs Baseline vs Previous AP Spine (L1-L2) 06/24/2023 67 0.985 0.1 2.2% 2.2% 02/18/2021 65 0.964 -0.1 Femoral Neck(Left) 06/24/2023 67 0.579 -2.4 -7.5%* -7.5%* 02/18/2021 65 0.626 -2.0 Total Hip(Left) 06/24/2023 67 0.832 -0.9 -0.3% -0.3% 02/18/2021 65 0.835 -0.9 *Denotes significance at 95% confidence level Procedure Note Quincy Javier MD - 06/24/2023 BONE DENSITOMETRY OF THE SPINE AND HIP DATE OF STUDY: 06/24/2023 HISTORY: 67-year-old postmenopausal woman with diabetes. Status post hysterectomy. Status post spinal fusion. She is being treated with no bone medications. Evaluate bone mineral density. Additional risk factors for fracture: parental fracture, increased risk of secondary osteoporosis. FINDINGS (SPINE): The bone mineral density of L1, L2 was assessed by dual-energy x-ray absorptiometry. The average bone mineral density within this region is 0.985 gm/sq-cm. This is 1.3 standard deviations above the mean of the average bone mineral density for age- and gender-matched subjects (the Z-score). It is 0.1 standard deviations above the mean peak bone mineral density in young adults (the T-score). L3-L4 were removed from analysis because of spinal hardware. FINDINGS (FEMORAL NECK): The bone mineral density of the left femoral neck was assessed by dual-energy x-ray absorptiometry. The average bone mineral density within the femoral neck region is 0.579 gm/sq-cm. This is 1.2 standard deviations below the mean of the average bone mineral density for age- and gender-matched subjects (the Z-score). It is 2.4 standard deviations below the mean peak bone mineral density in young adults (the T-score). FINDINGS (TOTAL HIP): The bone mineral density of the left hip was assessed by dual-energy x-ray absorptiometry. The average bone mineral density within the total hip region is 0.832 gm/sq-cm. This is 0.2 standard deviations below the mean of the average bone mineral density for age- and gender-matched subjects (the Z-score). It is 0.9 standard deviations below the mean peak bone mineral density in young adults (the T-score). SUMMARY OF CURRENT RESULTS: Region BMD T-score Z-score AP Spine (L1, L2) 0.985 0.1 1.3 Femoral Neck (Left) 0.579 -2.4 -1.2 Total Hip (Left) 0.832 -0.9 -0.2 COMPARISON WITH PREVIOUS RESULTS Region Age BMD T-score BMD Change BMD Change Exam Date g/cm2 vs Baseline vs Previous AP Spine (L1-L2) 06/24/2023 67 0.985 0.1 2.2% 2.2% 02/18/2021 65 0.964 -0.1 Femoral Neck(Left) 06/24/2023 67 0.579 -2.4 -7.5%* -7.5%* 02/18/2021 65 0.626 -2.0 Total Hip(Left) 06/24/2023 67 0.832 -0.9 -0.3% -0.3% 02/18/2021 65 0.835 -0.9 *Denotes significance at 95% confidence level IMPRESSION: 1. The bone mineral density of the lumbar spine is normal. There has been no significant change in bone mineral density since the baseline examination of 02/18/2021. 2. The bone mineral density of the left femoral neck is mildly decreased. There has been a statistically significant decrease in bone mineral density since the baseline examination of 02/18/2021. 3. The bone mineral density of the left total hip is normal. There has been no significant change in bone mineral density since the baseline examination of 02/18/2021. 4. Overall, the above findings are diagnostic of low bone mass (osteopenia) by WHO criteria. 5. Based on the FRAX fracture risk model, the 10-year probability for major osteoporotic fracture is 8.7% and that for hip fracture is 1.8%. This 10-year fracture risk estimate was calculated using the risk factors noted in the history above, along with the femoral neck bone density. FRAX is intended to help guide treatment decisions in men over age 50 and postmenopausal women with low bone mass (osteopenia). The National Osteoporosis Foundation (NOF) recommends that FDA-approved medical therapies be considered in postmenopausal women and men age 50 years and older with osteoporosis and those with low bone mass whose 10-year fracture probability by FRAX is >= 20% for major osteoporotic fracture or >= 3% for hip fracture. However, all treatment decisions require clinical judgment and consideration of individual patient factors, including patient preferences, comorbidities, previous drug use, risk factors not captured in the FRAX model (e.g., frailty, falls, vitamin D deficiency, increased bone turnover, interval significant decline in bone density) and possible under- or overestimation of fracture risk by FRAX. General comments regarding interpretation of bone density measurements: A) In children, premenopausal woman and males under age 50 not at increased risk for fractures only Z-scores, not T-scores are used to indicate risk. A Z-score above -2.0 is defined as within the expected range for age and Z-score at or less than -2.0 is below the expected range for age . A Z-score below the expected range for age in a patient with recent fractures and/or chronic corticosteroid treatment is consistent with a diagnosis of osteoporosis. B) In post menopausal women and males over 50, comparison of the measured bone mineral density with the average value in young normal subjects (the T-score ) has been found to be useful in assessing fracture risk. Fracture risk approximately doubles for each 1.0 standard deviation (SD) in individual's hip or spine bone mineral density is below the average value of young normal subjects. The World Health Organization (WHO) has defined T-scores of -1.0 to -2.5 as diagnostic of low bone mass (OSTEOPENIA), and T-scores of -2.5 or lower to be diagnostic of OSTEOPOROSIS, based on the site of lowest bone density. Note that there will be a change in reporting format and reference databases as patients move from the younger population (group A) to the older population (group B) The National Osteoporosis Foundation (www.nof.org) recommends adequate intake of calcium and vitamin D and regular weight-bearing exercise in all patients. They recommend pharmacologic treatment in postmenopausal women and men age 50 and older presenting with any of the followin) Osteoporosis, after appropriate evaluation to exclude secondary causes. 2) A hip or vertebral (clinical or radiographic) fracture, regardless of the bone density. 3) Low bone mass (Osteopenia) and one or more of: other prior fractures, secondary causes associated with high risk of fracture (such as glucocorticoid use or total immobilization), or computed high risk of fracture (10-yr probability of hip fracture >= 3% or a 10-yr probability of any major osteoporosis-related fracture >= 20% based on the [place].-adapted WHO algorithm), available at http://www.shef.ac.uk/FRAX). Dictated by: Mekhi Hernandez MD The radiology attending physician has personally reviewed this study, and had reviewed and/or edited this written report and agrees with it. Electronically signed by: Quincy Javier M.D. us Octaviano Richter MD IMG DXA PROCEDURES Final Result * Hepatitis C antibody Blood (05/18/2023 11:08 AM CDT) Hep C Ab Nonreactive Nonreactive Comment:Antibodies to HCV no t detected. Does NOT exclude the possibility of recent exposure to HCV. Current interpretive data was last revised on 22 Blood 05/18/2023 11:0 8 AM CDT 05/18/2023 12:16 PM CDT us Octaviano Richter MD LAB MICROBIOLOGY - GENERAL ORDER MESSI Final Result [facility] Department [place] [address] * (ABNORMAL) Hemoglobin A1c (05/18/2023 11:08 AM CDT) Hgb A1C 6.1(H) 4.0 - 5.6 % [facility] Estimated Average Glucose 128 mg/dL [facility] Comment: The ADA recommends reporting an estimated Average Glucose (eAG) with all Hemoglobin A1c results using the equation derived from a study of 507 normal and diabetic adults. Minority populations were underrepresented and children were not included. (Diabetes Care 2020; 43(S1): S66-S76). The eAG is not equivalent to a fasting glucose. Blood 05/18/2023 11:0 8 AM CDT 05/18/2023 12:16 PM CDT us Octaviano Richter MD LAB BLOOD ORDERABLES Final Resul t [facility] [place] [address] * Lipid panel (05/27/2022 8:21 PM CDT) Cholesterol 166 30 - 199 mg/dL [facility] Comment: Interpretive Data Ages < or = 19 years Acceptable: <170 mg/dL Borderline high: 170-199 mg/dL High: >or= 200 mg/dL Ages > or = 20 years Desirable: <200 mg/dL Borderline high: 200-239 mg/dL High: >or= 240 mg/dL Literature References: 1. Expert Panel on Integrated Guidelines for Cardiovascular Health and Risk Reduction in Children and Adolescents. Pediatrics 2011;128:S213 2. NCEP Expert Panel. Circulation 2004;110:227 Current Interpretive Data was last revised on 2018. Triglycerides 54 <=149 mg/dL [facility] Comment: Interpretive Data Ages < or = 9 years Acceptable: <75 mg/dL Borderline high: 75-99 mg/dL High: >or= 100 mg/dL Ages 10 to 20 years Acceptable: <90 mg/dL Borderline high: 90-129 mg/dL High: >or= 130 mg/dL Ages > or = 20 years Desirable: <150 mg/dL Borderline high: 150-199 mg/dL High: 200-499 mg/dL Very high: >or= 499 mg/dL Literature References: 1. Expert Panel on Integrated Guidelines for Cardiovascular Health and Risk Reduction in Children and Adolescents. Pediatrics 2011;128:S213 2. NCEP Expert Panel. Circulation 2004;110:227 Current Interpretive Data was last revised on 2018. HDL 67 >=40 mg/dL [facility] Comment: Interpretive Data Ages < or = 19 years Acceptable: >45 mg/dL Borderline low: 40-45 mg/dL Low: <40 mg/dL Ages > or = 20 years Desirable: >or= 60 mg/dL Low: <40 mg/dL Literature References: 1. Expert Panel on Integrated Guidelines for Cardiovascular Health and Risk Reduction in Children and Adolescents. Pediatrics 2011;128:S213 2. NCEP Expert Panel. Circulation 2004;110:227 Current Interpretive Data was last revised on 2018. LDL, calculated 88 <=129 mg/dL [facility] Comment: Interpretive Data Ages < or = 19 years Acceptable: <110 mg/dL Borderline high: 110-129 mg/dL High: >or= 130 mg/dL Ages > or = 20 years Optimal: <100 mg/dL Near optimal: 100-129 mg/dL Borderline high: 130-159 mg/dL High: >160 mg/dL Literature References: 1. Expert Panel on Integrated Guidelines for Cardiovascular Health and Risk Reduction in Children and Adolescents. Pediatrics 2011;128:S213 2. NCEP Expert Panel. Circulation 2004;110:227 Current Interpretive Data was last revised on 2018. Non-HDL Cholesterol 99 mg/dL [facility] Comment: Interpretive Data Ages < or = 19 years Acceptable: <120 mg/dL Borderline high: 120-144 mg/dL High: >145 mg/dL Ages > or = 20 years When triglycerides are >200 mg/dL, Non-HDL cholesterol is a secondary target of therapy with treatment goals that are 30 mg/dL greater than the LDL cholesterol target. Literature References: 1. Expert Panel on Integrated Guidelines for Cardiovascular Health and Risk Reduction in Children and Adolescents. Pediatrics 2011;128:S213 2. NCEP Expert Panel. Circulation 2004;110:227 Current Interpretive Data was last revised on 2018. Chol/HDL ratio 2 [facility] Blood 05/27/2022 8:21 PM CDT 05/27/2022 8:43 PM CDT us Juni Mendosa MD LAB BLOOD ORDERABLES Final Resu lt [facility] Department [place] [address] from Last 3 Months or Most Recently Relevant to Health Maintenance Insurance MEDICARE [employer] MEDICARE [facility] MEDICARE SOLUTIONS Advance Directives For more information, please contact: [phone] * Full Code (Latest Code Status on File) Date Activated Date Inactivated Comments 06/21/2024 10:11 AM 06/21/2024 5:29 PM * Full Code Date Activated Date Inactivated Comments 06/24/2022 10:28 PM 06/26/2022 6:27 PM * Full Code Date Activated Date Inactivated Comments 05/27/2022 6:26 PM 06/04/2022 5:46 PM * Full Code Date Activated Date Inactivated Comments 11/01/2019 8:19 AM 11/01/2019 7:27 PM * Full Code Date Activated Date Inactivated Comments 06/02/2019 7:23 AM 06/02/2019 1:26 PM Care Teams Yarn Mercerizer Operator Relationship Specialty Start Date End Date Magdy Grove MD [id number] [address] PCP - General Internal Medicine 06/09/24
--- OUTSIDE RECORDS SUMMARY | 2024-10-23 17:13 | XMS_ITS | Encounter Summary ---
Author Organization [facility] Healthcare Address [address] [place] [address] Care Team Providers Care Road Service Locksmith Name Role Phone Armando Allan MD Primary Care Provider +1- [phone] Magdy Grove MD Primary Care Provider + Unknown, Notinfile Primary Care Provider Unavail able Magdy Grove MD Primary Care Provider + Encounter Details Date Type Department Care Team (Late st Contact Info) Description 07/29/2023 Telephone [facility] Primary Care Medicine Clinic [address] [facility] [address] [facility] [address] [place] [address] Armando Allan MD [address] [place] [address] Social History Tobacco Use Types Packs/Day Years Used Date Smoking Tobacco: Former Cigarettes 1.5 5 0 08/30/1994 - 08/30/1999 Smokeless Tobacco: Never Comments:Per pt smoked 2ppd for 5yrs in the Alcohol Use Standard Drinks/Week Comments Not Currently 0 (1 standard drink = 0.6 oz pur e alcohol) Social Connection and Isolation Panel [NHANES] A nswer Date Recorded Frequency of Communication with Friends and Fami ly Not on file 06/22/2022 How often do you get togethe r with friends or relatives? Patient declined 06/22/2022 How often do you attend uatsdin or religion serv ices? Patient declined 06/22/2022 Do you belong to any clubs o r organizations such as uatsdin groups, unions, fraternal or athletic groups, or school groups? Patient declined 06/22/2022 How often do you attend meet ings of the clubs or organizations you belong to? Patient declined 06/22/2022 Are you , , di vorced, , never , or living with a partner? Patient declined 06/22/2022 AUDIT-C Answer Date Recorded Q1: How often do you have a drink containing alcohol? Never 06/17/2022 Q2: How many drinks containi ng alcohol do you have on a typical day when you are drinking? Patient does not drink Q3: How often do you have si x or more drinks on one occasion? Never 06/17/2022 Overall Financial Resource Strain (CARDIA) Answe r Date Recorded How hard is it for you to pa y for the very basics like food, housing, medical care, and heating? Patient declined 06/22/2022 Hunger Vital Sign Answer Date Recorded Within the past 12 months, y ou worried that your food would run out before you got the money to buy more. Never true 05/18/20 23 Within the past 12 months, t he food you bought just didn't last and you didn't have money to get more. Never true 05/18/2023 PRAPARE - Transportation Answer Date Re corded [...] place to sleep or slept in a half-way (including now)? Patient refused 06/22/2022 Comments No Sex and Gender Information Value Date Recorded Sex Assigned at Not on file Legal Sex Female 5:10 AM MAINTENANCE MECHANIC 2ND SHIFT Gender Identity Female 02/01/2020 12:43 PM CDT Sexual Orientation Not on file Occupation Industry Job Start Date Job End Date Retired Not on file Not on file Not on file documented as of this encounter Plan of Treatment Upcoming Encounters Date Type Department Care Team (Latest Contact Info) Description 10/31/2024 9:30 AM MAINTENANCE MECHANIC 2ND SHIFT Hospital Encounter [facility] [place] [address] [place] [address] Charli Ramirez MD 1 [facility] [address] [place] [address] 10/31/2024 9:30 AM MAINTENANCE MECHANIC 2ND SHIFT - 10/31/2024 10:00 AM MAINTENANCE MECHANIC 2ND SHIFT Surgery [facility] [place] [address] [place] [address] Charli Ramirez MD 1 [facility] [address] [place] [address] ESOPHAGOGASTRODUODENOSCOPY Scheduled Procedures Name Priority Associated Diagnoses Date/Ti ok ESOPHAGOGASTRODUODENOSCOPY Weight loss Dysphagia, unspecified type 10/31/2024 9:30 AM MAINTENANCE MECHANIC 2ND SHIFT ESOPHAGOGASTRODUODENOSCOPY Open Access Weight loss Dysphagia, unspecified [...] Diagnoses Not on filedocumented in this encounter Care Teams Road Service Locksmith Relationship Specialty Start Date End Date Armando Alaln MD PCP - General Internal Medicine 02/20/21 02/18/24 Magdy Grove MD One [facility] [phone] [place] [address] PCP - General 02/19/24 06/07/24 Unknown, Notinfile PCP - General 06/08/24 06/08/24 [place] [address] [place] [address] PCP - General Internal Medicine 06/09/24 documented as of this encounter
--- OUTSIDE RECORDS SUMMARY | 2024-10-23 17:13 | XMS_ITS | Encounter Summary ---
Author Organization [facility] Healthcare Address [address] [place] [address] Care Team Providers Care Color Coater Name Role Phone Armando Allan MD Primary Care Provider +1- [phone] Magdy Grove MD Primary Care Provider + Unknown, Notinfile Primary Care Provider Unavail able Magdy Grove MD Primary Care Provider + Reason for Visit * Reason Onset Date Comments Med Refill 01/13/2023 Encounter Details Date Type Department Care Team (Late st Contact Info) Description 01/13/2023 Telephone [facility] Primary Care Medicine Clinic [address] [facility] [address] [place] [address] Armando Allan MD [address] [place] [address] Med Refill Social History Tobacco Use Types Packs/Day Years [...] declined 06/22/2022 How often do you attend catholic or mandaeism serv ices? Patient declined 06/22/2022 Do you belong to any clubs o r organizations such as catholic groups, unions, fraternal or athletic groups, or [...] you got the money to buy more. Patient declined Within the past 12 months, t he food you bought just didn't last and you didn't have money to get more. Sometimes true PRAPARE - Transportation Answer Date Re corded [...] place to sleep or slept in a senior living (including now)? Patient refused 06/22/2022 Comments No Sex and Gender Information Value Date Recorded Sex Assigned at Not on file Legal Sex Female 5:10 AM SUPERVISOR METAL HANGING Gender Identity Female 02/01/2020 12:43 PM CDT Sexual Orientation Not on file Occupation Industry Job Start Date Job End Date Retired Not on file Not on file Not on file documented as of this encounter Plan of Treatment Upcoming Encounters Date Type Department Care Team (Latest Contact Info) Description 10/31/2024 9:30 AM SUPERVISOR METAL HANGING Hospital Encounter [facility] [place] [address] [place] [address] Charli Ramirez MD [id number] [place] [address] 10/31/2024 9:30 AM SUPERVISOR METAL HANGING - 10/31/2024 10:00 AM SUPERVISOR METAL HANGING Surgery [facility] [place] [address] [place] [address] Charli Ramirez MD [id number] [place] [address] ESOPHAGOGASTRODUODENOSCOPY Scheduled Procedures Name Priority Associated Diagnoses Date/Ti az ESOPHAGOGASTRODUODENOSCOPY Weight loss Dysphagia, unspecified type 10/31/2024 9:30 AM SUPERVISOR METAL HANGING ESOPHAGOGASTRODUODENOSCOPY Open Access Weight loss Dysphagia, unspecified type COLONOSCOPY Open Access Colon cancer screening COLONOSCOPY Open Access Screening for colon cancer Colitis documented as of this encounter Goals Goal Patient Goal Type Associated Problems Recent Progress Patient-Stated? Author CCM Chronic Pain Care Plan Chronic Care Management No change(05/19 9:54 AM CDT) Cheryle Nichols, [place] Note: Problem: Chronic Pain Goals: 1. Minimize further functional decline 2. Maximize quality of life 3. Control pain Strategies: - Activity/exercise program recommendation - Conservative stepwise pain medicine strategy with multi-disciplinary approach - Recommend healthy lifestyle strategies and compensatory methods as needed documented as of this encounter Visit Diagnoses Not on filedocumented in this encounter Care Teams Color Coater Relationship Specialty Start Date End Date Armando Allan MD PCP - General Internal Medicine 02/20/21 02/18/24 Magdy Grove MD One [facility] [phone] [place] [address] PCP - General 02/19/24 06/07/24 Unknown, Notinfile PCP - General 06/08/24 06/08/24 Magdy Grove MD [address] [address] PCP - General Internal Medicine 06/09/24 documented as of this encounter
--- OUTSIDE RECORDS SUMMARY | 2024-10-23 17:13 | XMS_ITS | Encounter Summary ---
Author Organization [facility] Healthcare Address [address] [place] [address] Care Team Providers Care Bobbin Painter Name Role Phone Armando Allan MD Primary Care Provider +1- [phone] Magdy Grove MD Primary Care Provider + Unknown, Notinfile Primary Care Provider Unavail able Magdy Grove MD Primary Care Provider + Encounter Details Date Type Department Care Team (Late st Contact Info) Description 10/01/2022 Telephone [facility] Primary Care Medicine Clinic [address] [facility] [address] [place] [address] Armando Allan MD [address] [place] [address] Social History Tobacco Use Types Packs/Day Years [...] declined 06/22/2022 How often do you attend hinduism or cheondoism serv ices? Patient declined 06/22/2022 Do you belong to any clubs o r organizations such as hinduism groups, unions, fraternal or athletic groups, or [...] place to sleep or slept in a long term (including now)? Patient refused 06/22/2022 Comments No Sex and Gender Information Value Date Recorded Sex Assigned at Not on file Legal Sex Female 5:10 AM SPECIAL EDUCATION TEACHER Gender Identity Female 02/01/2020 12:43 PM CDT Sexual Orientation Not on file Occupation Industry Job Start Date Job End Date Retired Not on file Not on file Not on file documented as of this encounter Plan of Treatment Upcoming Encounters Date Type Department Care Team (Latest Contact Info) Description 10/31/2024 9:30 AM SPECIAL EDUCATION TEACHER Hospital Encounter [facility] [address] [facility] [address] [place] [address] Charli Ramirez MD 1 [facility] [address] [place] [address] 10/31/2024 9:30 AM SPECIAL EDUCATION TEACHER - 10/31/2024 10:00 AM SPECIAL EDUCATION TEACHER Surgery [facility] Digestive Disease [place] [address] [facility] [address] [facility] [address] [place] [address] Charli Ramirez MD 1 [facility] [address] [place] [address] ESOPHAGOGASTRODUODENOSCOPY Scheduled Procedures Name Priority Associated Diagnoses Date/Ti nc ESOPHAGOGASTRODUODENOSCOPY Weight loss Dysphagia, unspecified type 10/31/2024 9:30 AM SPECIAL EDUCATION TEACHER ESOPHAGOGASTRODUODENOSCOPY Open Access Weight loss Dysphagia, unspecified type COLONOSCOPY Open Access Colon cancer screening COLONOSCOPY Open Access Screening for colon cancer Colitis documented as of this encounter Goals Goal Patient Goal Type Associated Problems Recent Progress Patient-Stated? Author CCM Chronic Pain Care Plan Chronic Care Management No change(05/19 9:54 AM CDT) No Cheryle Barros, RN Note: Problem: Chronic Pain Goals: 1. [...] Infection Onset Date Last Indicated Resolved Time COVID: Recovered Comment:Added based on recent COVID infection. 06/14/2022 06/14/2022 10/12/2022 3:[address] documented as of this encounter Care Teams Bobbin Painter Relationship Specialty Start Date End Date Armando Allan MD PCP - General Internal Medicine 02/20/21 02/18/24 Magdy Grove MD One [facility] [phone] [place] [address] PCP - General 02/19/24 06/07/24 Unknown, Notinfile PCP - General 06/08/24 06/08/24 Magdy Grove MD [address] [place] [address] PCP - General Internal Medicine 06/09/24 documented as of this encounter
--- OUTSIDE RECORDS SUMMARY | 2024-10-23 17:13 | XMS_ITS | Referral Summary ---
Author Organization [facility] [employer] Address [address] [place] [address] Care Team Providers Care Underwriting Specialist Name Role Phone Unavailable Primary Care Provider Unavailabl e Source Comments [facility],non-owned Affiliates and Associated Physician Practices is amultiple site organization consisting of ambulatory clinics and hospital sitesin [place], [place], [place] and [place]. This disclosure is being madepursuant to the Care Everywhere program and may not contain all information available regarding this patient. Last updated 18.[facility] [employer] Allergies Active Allergy Reactions Criticality Noted Date [...]
--- OUTSIDE RECORDS SUMMARY | 2024-10-23 17:13 | XMS_ITS | Encounter Summary ---
Author Organization [facility] Healthcare Address [address] [place] [address] Care Team Providers Care Patient Relations Specialist Name Role Phone Armando Allan MD Primary Care Provider +1- [phone] Judith Ahn RN Unavailable [phone] Magdy Grove MD Primary Care Provider + Unknown, Notinfile Primary Care Provider Unavail able Magdy Grove MD Primary Care Provider + Encounter Details Date Type Department Care Team (Late st Contact Info) Description 04/07/2022 Orders Only [facility] Primary Care Medicine Clinic [address] [facility] [address] [place] [address] Brenda Winn MD [address] [facility] [address] [place] [address] Chronic pain syndrome (Primary Dx) Social History Tobacco Use Types Packs/Day Years Used Date Smoking Tobacco: Former Cigarettes 1.5 5 0 08/30/1994 - 08/30/1999 Smokeless Tobacco: Never Comments:Per pt smoked 2ppd for 5yrs in the Alcohol Use Standard Drinks/Week Comments Not Currently 0 (1 standard drink = 0.6 oz pur e alcohol) AUDIT-C Answer Date Recorded Q1: How often do you have a drink containing alc ohol? Never 03/23/2022 Average Number of Drinks Not on file 022 Q3: How often do you have si x or more drinks on one occasion? Never 03/23/2022 Comments No Sex and Gender Information Value Date Recorded Sex Assigned at Not on file Legal Sex Female 5:10 AM BEATER BOSS Gender Identity Female 02/01/2020 12:43 PM CDT Sexual Orientation Not on file Occupation Industry Job Start Date Job End Date Retired Not on file Not on file Not on file documented as of this encounter Plan of Treatment Upcoming Encounters Date Type Department Care Team (Latest Contact Info) Description 10/31/2024 9:30 AM BEATER BOSS Hospital Encounter [facility] [address] [place] [address] Charli Ramirez MD [id number] [place] [address] 10/31/2024 9:30 AM BEATER BOSS - 10/31/2024 10:00 AM BEATER BOSS Surgery [facility] [address] [place] [address] Charli Ramirez MD [id number] [place] [address] ESOPHAGOGASTRODUODENOSCOPY Scheduled Procedures Name Priority Associated Diagnoses Date/Ti ks ESOPHAGOGASTRODUODENOSCOPY Weight loss Dysphagia, unspecified type 10/31/2024 9:30 AM BEATER BOSS ESOPHAGOGASTRODUODENOSCOPY Open Access Weight loss Dysphagia, unspecified [...] documented as of this encounter Visit Diagnoses Diagnosis Chronic pain syndrome- Primary Weight loss Loss of weight Dysphagia, unspecified type documented in this encounter Discontinued Medications Medication Sig Discontinue Reason Start Date End Da te HYDROcodone-acetaminophe n (NORCO) 10-325 mg per tabletIndications:Pain Take 1 tablet by mouth every 6 (six) hours as needed for pain Error 04/08/2022 04/07/2022 documented as of this encounter Additional Health Concerns Infection Onset Date Last Indicated Resolved Time COVID19 05/27/2022 05/27/2022 06/14/2022 3:05 AM CDT COVID: Recovered Comment:Added based on recent COVID infection. 06/14/2022 06/14/2022 10/12/2022 3:[address] documented as of this encounter Care Teams Patient Relations Specialist Relationship Specialty Start Date End Date Armando Allan MD PCP - General Internal Medicine 02/20/21 02/18/24 Magdy Grove MD [facility] [phone] [place] [address] PCP - General 02/19/24 06/07/24 Unknown, Notinfile PCP - General 06/08/24 06/08/24 Magdy Grove MD [address] [facility] [address] [place], [place] [address] PCP - General Internal Medicine 06/09/24 Judiht Ahn, RN [address] [facility] [address] [place] [address] [facility] Outpatient Copy Machine Operator 06/05/22 06/25/22 documented as of this encounter
--- OUTSIDE RECORDS SUMMARY | 2024-10-23 17:13 | XMS_ITS | Clinical Summary ---
Author Organization [facility] Address [address] [place] [address] Care Team Providers Care Specialty Trimmer Name Role Phone Md, Generic Conversion MD [...] to complete this topic Insurance MEDICAID MEDICARE [facility] Care Teams Specialty Trimmer Relationship Specialty Start Date End Date Swathi Santiago MD PCP - General FAMILY PRACTICE 12/22/18
--- OUTSIDE RECORDS SUMMARY | 2024-10-23 17:13 | XMS_ITS | Encounter Summary ---
Author Organization [facility] Healthcare Address [address] [place] [address] Care Team Providers Care Loading Shovel Oiler Name Role Phone Armando Allan MD Primary Care Provider +1- [phone] Magdy Grove MD Primary Care Provider + Unknown, Notinfile Primary Care Provider Unavail able Magdy Grove MD Primary Care Provider + Encounter Details Date Type Department Care Team (Late st Contact Info) Description 02/07/2024 Telephone [facility] Specialty Services [address] [place] [phone] Miscellaneous, Not In File Social History Tobacco Use Types Packs/Day Years [...] How often do you attend yarsanism or gnosticism serv ices? Patient declined 06/22/2022 Do you [...] you have a drink containing alcohol? Never 02/09/2024 Q2: How many drinks containi ng alcohol do you have on a typical day when you are drinking? Patient does not drink Q3: How often do you have si x or more drinks on one occasion? Never 02/09/2024 Overall Financial Resource Strain (CARDIA) Answe r Date Recorded How hard is it for you to pa y for the very basics like food, housing, medical care, and heating? Patient declined 06/22/2022 Hunger Vital Sign Answer Date Recorded Within the past 12 months, y ou worried that your food would run out before you got the money to buy more. Never true 08/06/20 23 Within the past 12 months, t he food you bought just didn't last and you didn't have money to get more. Never true 08/06/2023 PRAPARE - Transportation Answer Date Re corded [...] long term (including now)? Patient refused 06/22/2022 Personal Safety Answer Date Recorded Have you ever been in or are you currently in a harmful physical or emotional relationship or is someone making you feel afraid or unsafe? Denies 11/12/2023 Comments No Sex and Gender Information Value Date Recorded Sex Assigned at Not on file Legal Sex Female 5:10 AM FILLETER Gender Identity Female 02/01/2020 12:43 PM CDT Sexual Orientation Not on file Occupation Industry Job Start Date Job End Date Retired Not on file Not on file Not on file documented as of this encounter Functional Status * Audit-C Score Answer Date of Assessment Author 0 02/09/2024 12:16 PM CDT Dominga Vázquez RN * Question Answer Date of Assessment Author Q1: How often do you have a drink containing alcohol? Never 02/09/2024 12:16 PM CDT Dominga Mera RN Q2: How many drinks containing alcohol do you have on a typical day when you are drinking? Patient does not drink 02/09/2024 12:16 PM CDT Dominga Mera RN Q3: How often do you have six or more drinks on one occasion? Never 02/09/2024 12:16 PM HUMAIRAT Dominga Mera RN documented as of this encounter Plan of Treatment Upcoming Encounters Date Type Department Care Team (Latest Contact Info) Description 10/31/2024 9:30 AM FILLETER Hospital Encounter [facility] [address] [address] Charli Ramirez MD [address] [address] 10/31/2024 9:30 AM FILLETER - 10/31/2024 10:[address] [facility] [address] [place] [address] Charli Ramirez MD [address] [address] ESOPHAGOGASTRODUODENOSCOPY Scheduled Procedures Name Priority Associated Diagnoses Date/Ti me ESOPHAGOGASTRODUODENOSCOPY Weight loss Dysphagia, unspecified type 10/31/2024 9:30 AM FILLETER ESOPHAGOGASTRODUODENOSCOPY Open Access Weight loss Dysphagia, unspecified [...] on filedocumented in this encounter Care Teams Loading Shovel Oiler Relationship Specialty Start Date End Date Armando Allan MD PCP - General Internal Medicine 02/20/21 02/18/24 Magdy Grove MD [facility] [phone] [place] [address] PCP - General 02/19/24 06/07/24 Unknown, Notinfile PCP - General 06/08/24 06/08/24 Magdy Grove MD [address] [place] [address] PCP - General Internal Medicine 06/09/24 documented as of this encounter
--- OUTSIDE RECORDS SUMMARY | 2024-10-23 17:13 | XMS_ITS | Encounter Summary ---
Author Organization [facility] Healthcare Address [address] [place] [address] Care Team Providers Care Mounting Machine Operator Name Role Phone Armando Allan MD Primary Care Provider +1- [phone] Magdy Grove MD Primary Care Provider + Unknown, Notinfile Primary Care Provider Unavail able Magdy Grove MD Primary Care Provider + Encounter Details Date Type Department Care Team (Late st Contact Info) Description 01/14/2023 Telephone [facility] Primary Care Medicine Clinic [address] [facility] [address] [place] [address] Armando Allan MD [address] [place] [address] Social History Tobacco Use Types Packs/Day Years [...] declined 06/22/2022 How often do you attend congregation or gnosticism serv ices? Patient declined 06/22/2022 Do you belong to any clubs o r organizations such as congregation groups, unions, fraternal or athletic groups, or [...] place to sleep or slept in a prison (including now)? Patient refused 06/22/2022 Comments No Sex and Gender Information Value Date Recorded Sex Assigned at Not on file Legal Sex Female 5:10 AM PSYCHIATRIC SOCIAL WORKER SUPERVISOR Gender Identity Female 02/01/2020 12:43 PM CDT Sexual Orientation Not on file Occupation Industry Job Start Date Job End Date Retired Not on file Not on file Not on file documented as of this encounter Plan of Treatment Upcoming Encounters Date Type Department Care Team (Latest Contact Info) Description 10/31/2024 9:30 AM PSYCHIATRIC SOCIAL WORKER SUPERVISOR Hospital Encounter [facility] Digestive Disease [place] [address] [place] [address] Charli Ramirez MD 1 [facility] [address] [place] [address] 10/31/2024 9:30 AM PSYCHIATRIC SOCIAL WORKER SUPERVISOR - 10/31/2024 10:00 AM PSYCHIATRIC SOCIAL WORKER SUPERVISOR Surgery [facility] Dig[facility] Disease [place] [address] [place] [address] Charli Ramirez MD 1 [facility] [address] [place] [address] ESOPHAGOGASTRODUODENOSCOPY Scheduled Procedures Name Priority Associated Diagnoses Date/Ti ms ESOPHAGOGASTRODUODENOSCOPY Weight loss Dysphagia, unspecified type 10/31/2024 9:30 AM PSYCHIATRIC SOCIAL WORKER SUPERVISOR ESOPHAGOGASTRODUODENOSCOPY Open Access Weight loss Dysphagia, unspecified [...] on filedocumented in this encounter Care Teams Mounting Machine Operator Relationship Specialty Start Date End Date Armando Allan MD PCP - General Internal Medicine 02/20/21 02/18/24 Magdy Grove MD One [facility] [phone] [place] [address] PCP - General 02/19/24 06/07/24 Unknown, Notinfile PCP - General 06/08/24 06/08/24 [place] [address] [place] [address] PCP - General Internal Medicine 06/09/24 documented as of this encounter
--- OUTSIDE RECORDS SUMMARY | 2024-10-23 17:13 | XMS_ITS | Encounter Summary ---
Author Organization [facility] Healthcare Address [address] [place] [address] Care Team Providers Care Project Structural Engineer Name Role Phone Armando Allan MD Primary Care Provider [phone]- [phone] Magdy Grove MD Primary Care Provider + Unknown, Notinfile Primary Care Provider Unavail able Magdy Grove MD Primary Care Provider + Encounter Details Date Type Department Care Team (Late st Contact Info) Description 07/14/2022 Telephone [facility] Medicine [facility] [address] [facility] [address] [facility] [address] [place] [address] Armando Allan MD [address] [place] [address] Social History Tobacco Use Types Packs/Day Years [...] declined 06/22/2022 How often do you attend restorationist or adventist serv ices? Patient declined 06/22/2022 Do you belong to any clubs o r organizations such as restorationist groups, unions, fraternal or athletic groups, or [...] on file Legal Sex Female 5:10 AM SUPPLIER QUALITY ENGINEERING MANAGER Gender Identity Female 02/01/2020 12:43 PM CDT Sexual Orientation Not on file Occupation Industry Job Start Date Job End Date Retired Not on file Not on file Not on file documented as of this encounter Plan of Treatment Upcoming Encounters Date Type Department Care Team (Latest Contact Info) Description 10/31/2024 9:30 AM SUPPLIER QUALITY ENGINEERING MANAGER Hospital Encounter [facility] [address] [place] [address] Charli Ramirez MD 1 [facility] [address] [place] [address] 10/31/2024 9:30 AM SUPPLIER QUALITY ENGINEERING MANAGER - 10/31/2024 10:00 AM SUPPLIER QUALITY ENGINEERING MANAGER Surgery [facility] [place] [address] [place] [id number] Charli Ramirez MD 1 [facility] [address] [place] [address] ESOPHAGOGASTRODUODENOSCOPY Scheduled Procedures Name Priority Associated Diagnoses Date/Ti ok ESOPHAGOGASTRODUODENOSCOPY Weight loss Dysphagia, unspecified type 10/31/2024 9:30 AM SUPPLIER QUALITY ENGINEERING MANAGER ESOPHAGOGASTRODUODENOSCOPY Open Access Weight loss Dysphagia, unspecified [...] documented as of this encounter Care Teams Project Structural Engineer Relationship Specialty Start Date End Date Armando Allan MD PCP - General Internal Medicine 02/20/21 02/18/24 Magdy Grove MD One [facility] [id number] [place] [address] PCP - General 02/19/24 06/07/24 Unknown, Notinfile PCP - General 06/08/24 06/08/24 Magdy Grove MD [address] [place] [id number] PCP - General Internal Medicine 06/09/24 documented as of this encounter
--- OUTSIDE RECORDS SUMMARY | 2024-10-23 17:13 | XMS_ITS | Encounter Summary ---
Author Organization [facility] Healthcare Address [address] [place] [address] Care Team Providers Care Urology Physician Name Role Phone Armando Allan MD Primary Care Provider [phone]- [phone] Magdy Grove MD Primary Care Provider + Unknown, Notinfile Primary Care Provider Unavail able Magdy Grove MD Primary Care Provider + Encounter Details Date Type Department Care Team (Late st Contact Info) Description 01/18/2023 Telephone [facility] Primary Care Medicine Clinic [address] [facility] [address] [place] [address] Armando Allan MD [address] [place] [address] Social History Tobacco Use Types Packs/Day Years [...] declined 06/22/2022 How often do you attend pentecostalism or adventism serv ices? Patient declined 06/22/2022 Do you belong to any clubs o r organizations such as pentecostalism groups, unions, fraternal or athletic groups, or [...] place to sleep or slept in a fpc (including now)? Patient refused 06/22/2022 Comments No Sex and Gender Information Value Date Recorded Sex Assigned at Not on file Legal Sex Female 5:10 AM UTILITY AIDE Gender Identity Female 02/01/2020 12:43 PM CDT Sexual Orientation Not on file Occupation Industry Job Start Date Job End Date Retired Not on file Not on file Not on file documented as of this encounter Plan of Treatment Upcoming Encounters Date Type Department Care Team (Latest Contact Info) Description 10/31/2024 9:30 AM UTILITY AIDE Hospital Encounter [facility] [place] [address] [place] [address] Charli Ramirez MD 1 [facility] [address] [place] [address] 10/31/2024 9:30 AM UTILITY AIDE - 10/31/2024 10:00 AM UTILITY AIDE Surgery [facility] [place] [address] [place] [address] Charli Ramirez MD 1 [facility] [address] [place] [address] ESOPHAGOGASTRODUODENOSCOPY Scheduled Procedures Name Priority Associated Diagnoses Date/Ti ak ESOPHAGOGASTRODUODENOSCOPY Weight loss Dysphagia, unspecified type 10/31/2024 9:30 AM UTILITY AIDE ESOPHAGOGASTRODUODENOSCOPY Open Access Weight loss Dysphagia, unspecified [...] on filedocumented in this encounter Care Teams Urology Physician Relationship Specialty Start Date End Date Armando Allan MD PCP - General Internal Medicine 02/20/21 02/18/24 Magdy Grove MD One [facility] [id number] [place] [address] PCP - General 02/19/24 06/07/24 Unknown, Notinfile PCP - General 06/08/24 06/08/24 [place] [address] [place] [id number] PCP - General Internal Medicine 06/09/24 documented as of this encounter
--- OUTSIDE RECORDS SUMMARY | 2024-10-23 17:13 | XMS_ITS | Clinical Summary ---
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 Colitis 11/04/2023 Overview (02/09/2024): S/p ED visit in October with abdominal pain and hematochezia. CT scan with moderate colitis involving the proximal descending colon to proximal sigmoid colon. She was given a course of Augmentin with resolution of her symptoms. - Colonoscopy Assessment & Plan (11/04/2023 10:45 AM WORKERS COMPENSATION COORDINATOR): Ordered colonoscopy for follow-up. Primary insomnia 08/06/2023 Assessment & Plan (11/04/2023 10:44 AM WORKERS COMPENSATION COORDINATOR): Refilled trazodone per request. Assessment & Plan (08/06/2023 11:34 AM WORKERS COMPENSATION COORDINATOR): Will try trazodone 50 mg QHS PRN. Vitamin D deficiency 08/06/2023 Overview (02/09/2024): - Recheck vitamin D level today Assessment & Plan (11/04/2023 10:45 AM WORKERS COMPENSATION COORDINATOR): Ordered repeat level, most recently on high-dose supplementation. Assessment & Plan (08/06/2023 11:35 AM WORKERS COMPENSATION COORDINATOR): Checking level to guide supplementation. Hyperlipidemia, unspecified 06/03/2022 Assessment & Plan (08/06/2023 11:36 AM WORKERS COMPENSATION COORDINATOR): Checking lipid panel since resuming statin. Assessment [...] another appointment Spinal stenosis of lumbar re tyree with neurogenic claudication 04/21/2022 Overview (07/17/2024): s/p [...] J. Ophthalmic Inflamm. Infect. 2019, 9:4; PMID [id number]). DDx herpetic, uveitis, chronic endophthalmitis (haze on [...] referral. Assessment & Plan (09/14/2019 8:54 AM WORKERS COMPENSATION COORDINATOR): - Second recurrence after tapering PF; first [...] J. Ophthalmic Inflamm. Infect. 2019, 9:4; PMID [id number]). DDx herpetic, uveitis, chronic endophthalmitis (haze on [...] screen) Assessment & Plan (09/01/2019 11:56 AM WORKERS COMPENSATION COORDINATOR): - Second recurrence after tapering PF; first [...] J. Ophthalmic Inflamm. Infect. 2019, 9:4; PMID [id number]). DDx herpetic, uveitis, chronic endophthalmitis (haze on [...] endoph. Assessment & Plan (07/26/2019 4:05 PM WORKERS COMPENSATION COORDINATOR): - (+) mild rebound inflammation today after [...] (06/07/2019): Added automatically from request for surgery [id number] Assessment & Plan (08/16/2019 10:30 AM WORKERS COMPENSATION COORDINATOR): POW6 s/p CE-IOL right eye (OD), doing well. Much improved pain/photophobia/seeing circles now that we stopped cyclopentolate. PF down to qday x 1 week then stop OD, OK if bottle runs out MRx held for CE/IOL OS OK to resume normal activities Assessment & Plan (08/02/2019 11:23 AM WORKERS COMPENSATION COORDINATOR): POM1 s/p CE-IOL right eye (OD), lots [...] weeks Assessment & Plan (07/19/2019 9:47 AM WORKERS COMPENSATION COORDINATOR): POW#1 s/p CE/PCIOL OD - Doing well. [...] OS. Assessment & Plan (07/05/2019 11:50 AM WORKERS COMPENSATION COORDINATOR): POW#1 s/p CE/PCIOL OD - Doing well. [...] 2019 Assessment & Plan (08/01/2018 5:38 AM WORKERS COMPENSATION COORDINATOR): NEEDS f/u imaging- has been deferred 2/2 cost GERD (gastroesophageal reflux disease) 8 Overview (08/01/2018): PPI to ranitidine /2 cost Sensorineural hearing loss (SNHL) 08/01/2018 Overview (08/01/2018): ENT 05/2014: sensoneurial hearing loss; pt declines hearing aides JAIMEE (obstructive sleep apnea) 07/27/2018 Overview (10/04/2022): Non-compliant with CPAP because of claustrophobia. Assessment & Plan (10/04/2022 7:47 PM WORKERS COMPENSATION COORDINATOR): Reporting worsening daytime somnolence today, which is likely combination of untreated JAIMEE + polypharmacy. -Previously referred to sleep medicine, but did not re-establish. Offered referral again today, but declined. Assessment & Plan (06/16/2019 12:37 PM CDT): - Re-referred to Sleep Medicine today Assessment & Plan (07/27/2018 7:52 AM WORKERS COMPENSATION COORDINATOR): - noncompliant with CPAP: refuses CPAP tx [...] flonase Assessment & Plan (11/04/2023 10:44 AM WORKERS COMPENSATION COORDINATOR): Refilled Advair per request. Assessment & Plan (08/01/2018 5:51 AM WORKERS COMPENSATION COORDINATOR): Cont current regimen-- add flonase for additional rhinitis control Assessment & Plan (07/27/2018 7:52 AM WORKERS COMPENSATION COORDINATOR): - Stable,continue advair and albuterol Healthcare maintenance [...] today - Pap (women 21-65): Referred to Hazardous Substances Engineer today - Lung (4 mm RLL nodule on 06/2018 CT): Repeat low-dose chest CT unchanged Infectious Disease - HIV (age 15-65): Consider at next visit - HBV (if at high risk): N/A - HCV ( [id number]): Consider at next visit Immunizations - Influenza [...] OV Assessment & Plan (08/01/2018 5:34 AM WORKERS COMPENSATION COORDINATOR): NEEDS colonoscopy, mammogram, PAP smear-- has deferred all multiple times due to costs (self-pay) Flu shot today (05/2018) Assessment & Plan (07/28/2018 8:44 AM WORKERS COMPENSATION COORDINATOR): COLONOSCOPY (07/2011): poor prep, DUE 07/2016 (ordered [...] & Plan (03/18/2018 10:00 AM CDT): Start yrte Controlled type 2 diabetes gabriela anne without complication, without long-term current use of insulin ([facility]) 11/30/2016 Overview (03/07/2024): Last A1c 6/1% on [...] time Assessment & Plan (11/04/2023 10:45 AM WORKERS COMPENSATION COORDINATOR): Checking annual labs today. Did not have enough urine to send UACR. This year still needs UACR, foot exam, eye exam. Increased semaglutide to 2 mg weekly, tolerating well. Assessment & Plan (08/06/2023 11:35 AM WORKERS COMPENSATION COORDINATOR): Increased semaglutide to 1 mg weekly. Assessment [...] class would be covered once her [facility] prescription drug coverage resumes 02/27/23. [...] NOV Assessment & Plan (11/01/2018 10:40 AM WORKERS COMPENSATION COORDINATOR): No evidence of diabetic retinopathy on exam today. Lab Results Component Value Date HGBA1C 6.4 (H) 03/31/2017 Insulin independent. Plan Educated patient on ocular complications of diabetes including blurry vision, risk of cataracts, and risk of blindness Emphasized the importance of blood glucose and blood pressure control per PCP to minimize ocular complications Yearly dilated eye exam Assessment & Plan (09/29/2018 11:20 AM WORKERS COMPENSATION COORDINATOR): Pt declined dilation today, no evidence of diabetic retinopathy on last exam in 2013 -- will need DFEx prior to surgery Assessment & Plan (08/01/2018 5:19 AM WORKERS COMPENSATION COORDINATOR): Well controlled, cont current regimen Assessment & Plan (07/28/2018 8:42 AM WORKERS COMPENSATION COORDINATOR): well controlled. A1C <6.5 (11/2017) - Continue [...] daily Assessment & Plan (08/06/2023 11:36 AM WORKERS COMPENSATION COORDINATOR): Encouraged therapy follow-up, let her know to reach out if she is interested in medication. Denies SI or thoughts of self-harm. Willing to try sleep medicine but does not want antidepressant. OK with trazodone as elsewhere. Assessment & Plan (08/01/2018 5:36 AM WORKERS COMPENSATION COORDINATOR): Pt states mood is a little improved today. She is no longer taking zoloft. Assessment & Plan (07/27/2018 7:51 AM WORKERS COMPENSATION COORDINATOR): - no SI/HI. - Contiue Aqua therapy at the [facility], contiunue meeting with pastor avery Assessment [...] agent Assessment & Plan (11/02/2020 11:42 AM WORKERS COMPENSATION COORDINATOR): - SBP remains above goal on Amlodipine [...] antihypertensives Assessment & Plan (08/01/2018 5:22 AM WORKERS COMPENSATION COORDINATOR): Mildly elevated BP 148/73 today CTM, consider increasing carvedilol if cont to be elevated Assessment & Plan (07/28/2018 8:41 AM WORKERS COMPENSATION COORDINATOR): - Currently on Losartan 100/HCTZ 25 and [...] 11/04/2023 Assessment & Plan (08/06/2023 11:34 AM WORKERS COMPENSATION COORDINATOR): Has worked with PT previously, uses cane at baseline. Requests motorized scooter for increased mobility. Filled out paperwork and given to nurse Aziza. Also referred to HHPT. Flank pain 02/17/2023 11/04/2023 Assessment & Plan (02/17/2023 2:04 PM CDT): Reproducible TTP and no urinary/abdominal or systemic symptoms. UA was unremarkable. - Reassured patient that she does not have a UTI and she can stop taking azo - Given high suspicion for muscle strain/spasm, discussed hot/cold packs, stretching exercises, tylenol. 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 Acute pain of both knees [...] 09/02/2022 Assessment & Plan (08/06/2023 11:35 AM WORKERS COMPENSATION COORDINATOR): Flu, Covid shots today. Fall 09/02/2022 11/04/2023 [...] adult 06/03/2022 024 History of falling 06/03/2022 meterman (current) use of inhaled steroids 06/03/2022 11/04/2023 Other care home (current) drug therapy 06/03/2022 11/04/2023 COVID-19 05/31/2022 11/04/2023 Spinal stenosis of cervical region 05/27/2022 11/04/2023 Disease of spinal cord, unspecified 05/27/2022 11/04/2023 Encounter for other orthopedic aftercare 05/27/2022 11/04/2023 Lower extremity pain, right 07/18/2021 10/17/2021 Assessment & Plan (07/18/2021 10:36 AM WORKERS COMPENSATION COORDINATOR): As described in the [facility] note 07/18 - Unclear etiology and [...] dizziness, palpitations, presyncope/syncope were to occur - MANAGER CARDIOVASCULAR stress echo given recent chest pain and [...] 70 with frequent PACs on EKG. - MANAGER CARDIOVASCULAR stress echo - follow up in 1 [...] enlarging or malignant features - Referred to Hazardous Substances Engineer today - Repeat L-spine X-ray today - [...] we provided her the contact information for [facility] Bariatric surgery Assessment & Plan (08/01/2018 5:41 AM WORKERS COMPENSATION COORDINATOR): Obesity is stable Combined forms of age-relate d cataract of left eye 08/01/2018 02/18/2024 Assessment & Plan (09/01/2019 11:57 AM WORKERS COMPENSATION COORDINATOR): - Recommend holding off on CEIOL on inflammation is resolved off topical steroids Assessment & Plan (08/16/2019 10:30 AM WORKERS COMPENSATION COORDINATOR): Again discussed r/b/a of CE/IOL. Patient has not had history of prolonged inflammation in this eye. Aim distance plano to match other eye. Patient eager to receive surgery, will wait until a green party she must coordinate 09/19/19. Assessment & Plan (07/26/2019 4:02 PM WORKERS COMPENSATION COORDINATOR): - Visually significant; patient wishes to hold [...] phone number at which to reach patient: [phone] (home) Planned Operation: CE/IOL the right eye Time: 45 minutes Anesthesia: MAC; If general anesthesia, reason: may convert if patient claustrophobic Local: subtenon Special equipment: Trypan 23 Hr Stay?: No Preop meds: None Med Clearance: CPAP IOL Master: Done today Additional perioperative testing/procedure needed?: None Assessment & Plan (11/01/2018 10:39 AM WORKERS COMPENSATION COORDINATOR): UES Cataract Pre-Op Note HPI: Cat Reese [...] phone number at which to reach patient: [phone] (home) Planned Operation: CE/IOL the right eye Time: 90 minutes Anesthesia: MAC; If general anesthesia, reason: may convert if patient claustrophobic Local: subtenon Special equipment: Trypan 23 Hr Stay?: No Preop meds: None Med Clearance: CPAP IOL Master: Done today Additional perioperative testing/procedure needed?: None Assessment & Plan (09/29/2018 11:25 AM WORKERS COMPENSATION COORDINATOR): Visually significant combined nuclear and cortical cataracts OU. Pt with worsening blurry vision, and glare at night interfering with her ability to drive. -- BCVA 20/25- at near with bright light, 20/30 at distance -- BATs to 20/50 OU -- MRx done today -- pt declined dilation today as she was concerned about her ability to drive home, but will bring a lease purchase driver for her pre-op visit -- discussed risks and benefits of the procedure, and what to expect for the procedure and follow up -- pt expressed concern about tolerating surgery without sedation due to anxiety about manipulation of her eye -- she has financial assistance arranged through [facility], but still needs her [employer] U paperwork, which was provided today -- follow up with Dr. Chaves for cataract pre op vist Assessment & Plan (08/01/2018 5:52 AM WORKERS COMPENSATION COORDINATOR): Patient is self-pay. Is is awaiting financial assistance for cataract surgery and or new glasses. She is also due for retinopathy screening. [facility]- pt declined Headache 03/18/2018 02/02/2021 Overview [...] of posterior L3-L5 2021 Current pain regimen: [place] 10-325 q6h prn - UDS today Assessment & Plan (11/04/2023 10:44 AM WORKERS COMPENSATION COORDINATOR): Due for UDS and pain contract, both done today. Assessment & Plan (08/06/2023 11:35 AM WORKERS COMPENSATION COORDINATOR): UDS today, refilled meds (see prior orders only note). Assessment & Plan (05/18/2023 10:59 AM CDT): - Refilled cyclobenzaprine today. - UDS today Assessment & Plan (10/29/2022 11:35 AM WORKERS COMPENSATION COORDINATOR): Chronic Pain Management Diagnosis: Chronic LBP 2/2 spinal stenosis s/p C4-T2 posterior cervical decompression and fusion of posterior L3-L5 2021 Current pain regimen: Hydrocodone 10-325 mg Q6H PRN #112 Current adjunct medications/therapies: lidocaine, flexeril, lyrica Date pain agreement signed (update annually): August 2022 Pain agreement violations/concerning behavior: Helga took remainder of her pills in 12/2021 and ran out early. UDS on re-establishing care with [facility] positive for benzodiazepines and hydrocodone (not prescribed since 12/2021 per PDMP). Re- testing today for benzodiazepines. If UDS appropriate, will switch to every 3 months. Assessment & Plan (10/04/2022 7:56 PM WORKERS COMPENSATION COORDINATOR): - Discussed inappropriately positive UDS at last [...] at home to prevent misuse. - Refilled [place] 10-325 #120 - Spoke w/ pharmacy, only able to do partial fill to get her through the weekend and will re-send Rx for 01/12 for full #120 Assessment & Plan (10/17/2021 11:53 AM WORKERS COMPENSATION COORDINATOR): - UDS today - Refilled Hydrocodone-APAP 10-325 Q6 PRN (#120) Assessment & Plan (07/18/2021 10:38 AM WORKERS COMPENSATION COORDINATOR): - UDS today - Refilled [place] 120 tablets 10-325 monthly. Reviewed PDMP - This prescription was filled 07/11 but sent to the wrong pharmacy, patient did not fill it. As such, called and DC'd prescription and refilled today to [facility] pharmacy. Assessment & Plan (11/02/2020 11:46 AM WORKERS COMPENSATION COORDINATOR): Pain is: R side and back midline [...] opiooids - Last fill was 09/2020 in [facility] [place] PDMP checked and appropriate. - MME <50, no narcan required. Should discuss and provide to her at follow-up. Assessment & Plan (06/16/2019 12:34 PM CDT): - Repeat UDS today - Repeat L-spine X-ray today given worsening pain - Refilled [place] 10/325 mg Q6hrs PRN (#120) - Refilled Flexeril 10 mg TID PRN Assessment & Plan (03/23/2019 12:37 PM CDT): Patient pain level is 9.5/10 today. Concern about current pain regimen as she is requesting the addition of Valium for adjunct therapy. Previous L-spine plain films with mi DDD - discussed increased risk of sedation and full with the addition of Valium - refill [place] 10/325 every 6 hours as needed for [...] Very distressed regarding back pain. PLAN: -refill [place] 10/325 q.6 hours PRN, 120 tablets today with a fill date 12/25 -start adjunct Tylenol 625 q.6 hour, this will allow her to take a total of APAP 1000 mg q.6h, a counseled her that this is the max dose and that she should not take any other efor-dtl-sddplog Tylenol or Tylenol containing products -start adjunct [...] SNRI Assessment & Plan (08/01/2018 5:15 AM WORKERS COMPENSATION COORDINATOR): UDS positive for MJ and negative for opiates-- need to discuss with patient prior to refill of medications Assessment & Plan (07/27/2018 7:50 AM WORKERS COMPENSATION COORDINATOR): -Continue [place] 10/325 #120, flexeril 5mg tid prn Assessment & Plan (03/18/2018 3:06 PM CDT): UDS in clinic today-> negative for all drugs including opiates Refilled Vicodin 10/325 #120 Cont flexeril Encounters Date Type Department Care Team Description 10/13/2024 Orders Only [facility] Primary Care Medicine Clinic [facility] [facility] [address] [place] [address] Alexi Jackson MD Other chronic pain 10/10/2024 Nurse Triage [facility] Specialty Services [address] [place] [address] Cheryle Barros, [place] 10/04/2024 Telephone [facility] Gastro[facility]ology [facility] [address]th [place] [address] [place] [address] Narda Blake LPN GI Preprocedure; EGD RESCHEDULE 09/26/2024 Telephone [facility] [address]th [place] [address] [place] [address] Narda Blake LPN GI Preprocedure (Assessment) 09/15/2024 Orders Only [facility] Primary [facility] Medicine Clinic [address] [place] [address] [place] [phone] Magdy Grove MD Other chronic pain 09/15/2024 Orders Only Internal Medicine Magdy Grove MD Other chronic pain 09/08/2024 Telephone [facility] Specialty Services [address] [place] [phone] Chrystal Smith, [place] 09/04/[address] [phone] Angela Jessica MD 09/01/2024 12:30 PM WORKERS COMPENSATION COORDINATOR Lab [address] [address] Weight loss 09/01/2024 10:45 AM WORKERS COMPENSATION COORDINATOR Office Visit [facility] [address] [place] [address] [place] [phone] Angela Jessica MD Weight loss (Primary Dx); Dysphagia, unspecified type; Hoarseness; Screening mammogram for breast cancer 08/25/2024 Nurse Triage [facility] Specialty Services [address] [place] [phone] Grazyna Pelayo, [place] 08/15/2024 Telephone [facility] Medicine [facility] [address] [place] [address] [address] [place] [address] Rox Cruz RN 08/11/2024 Telephone [facility] [address] [place] [address] [place] [address] Rox Cruz RN 08/11/2024 Orders Only [facility] [address] [place] [address] [place] [phone] Daniel Sotelo MD Other chronic pain from Last 3 Months Immunizations Immunization Administration Dates Next Due COVID-19 mRNA (SlideJar) 0.3 m L (30 mcg) vaccine (12 years and up) 08/06/2023 Influenza, Quadrivalent, Hig h Dose, Preservative Free, Intrr 08/06/2023,09/02/2022 Influenza, Quadrivalent, Spl it, Preservative Free, Intramuscular 06/16/2019,06/17/2018,07/01/2017 Influenza, Trivalent, Preser vative Free, Intramuscular 08/05/2016,06/29/2013,09/14/2012 Crowdtap SARS-CoV-2 Monovalent Vaccination (12+ Yrs) ANDRADE-READY TO USE 01/09/2022 Pfizer SARS-CoV-2 Monovalent Vaccination (12+ Yrs) PURPLE 07/18/2021,01/13/2021,12/20/2020 Pfizer Sars-Cov-2 Bivalent V accination (12+ YRS) 09/02/2022 Pneumococcal Conjugate PCV 13 09/16/2017 Pneumococcal Polysaccharide PPV23 11/01/2020 Tdap 05/18/2023 Surgical History Surgery Date Site/Laterality Comments THYROIDECTOMY, PARTIAL 08/30/2009 - 08/29/2010 Left COLONOSCOPY 06/02/2019 HYSTERECTOMY CATARACT EXTRACTION 06/30/2019 - 07/29/2019 COLECTOMY PARTIAL / TOTAL TONSILLECTOMY 08/30/2019 - 08/29/2020 SPINAL FUSION 08/30/2022 - 08/29/2023 Medical History Medical History Date Comments Arthritis Hyperplasia of thyroid on biopsy 2009 L-thyroidectomy with path showing nodular hyperplasia Cataracts, bilateral 08/01/2018 Chronic back pain Asthma Hypertension Hyperlipidemia GERD (gastroesophageal reflu x disease) Sleep apnea Chronic diarrhea Chest pain 02/14/2020 Episode of CP w/ negative w/u in ED in January 2020 -referred to cards given grandson's SCD and patient w/ bradycardia and bigeminy -did not schedule her echocardiogram -encouraged to schedule stress TTE and cards apt Anxiety Depression Type 2 diabetes mellitus (HCC) Lumbar stenosis Hyperlipidemia, unspecified 06/03/2022 Family History Medical History Relation Name Comments Anxiety disorder Cousin 1 Depression Cousin 1 Anxiety disorder Cousin 2 Depression Cousin 2 Cancer Father Lung cancer Father Cancer Mother Alcohol abuse Mother's Brother Cancer at 21 Sister Depression Sister ADD / ADHD Neg Hx Anesthesia problems Neg Hx Bipolar disorder Neg Hx Dementia Neg Hx Drug abuse Neg Hx Schizophrenia Neg Hx Suicide Attempts Neg Hx Suicide Completion Neg Hx Relation Name Status Comments Cousin 1 Alive Cousin 2 Alive Father Mother Mother's Brother Alive Mother's Sister Alive Sister Social History Tobacco Use Types Packs/Day Years [...] declined 06/22/2022 How often do you attend roman catholic or nondenominational serv ices? Patient declined 06/22/2022 Do you belong to any clubs o r organizations such as roman catholic groups, unions, fraternal or athletic groups, [...] place to sleep or slept in a penitentiary (including now)? Patient refused 06/22/2022 Personal Safety Answer Date Recorded Have you ever been in or are you currently in a harmful physical or emotional relationship or is someone making you feel afraid or unsafe? Denies 06/21/2024 Comments No Sex and Gender Information Value Date Recorded Sex Assigned at Not on file Legal Sex Female 5:10 AM WORKERS COMPENSATION COORDINATOR Gender Identity Female 02/01/2020 12:43 PM CDT Sexual Orientation Not on file Occupation Industry Job Start Date Job End Date Retired Not on file Not on file Not on file Obstetrics History Last Filed Vital Signs Vital Sign Reading Time Taken Comments Blood Pressure 142/83 09/01/2024 10:58 AM WORKERS COMPENSATION COORDINATOR Pulse 101 09/01/2024 10:58 AM WORKERS COMPENSATION COORDINATOR Temperature 36.9 C (98.4 F) 09/01/2024 10:58 AM WORKERS COMPENSATION COORDINATOR Respiratory Rate 16 09/01/2024 10:58 AM WORKERS COMPENSATION COORDINATOR Oxygen Saturation 97% 09/01/2024 10:58 AM WORKERS COMPENSATION COORDINATOR Inhaled Oxygen Concentration - - Weight 86.2 kg (190 lb) 09/26/2024 12:47 PM WORKERS COMPENSATION COORDINATOR Height 165.1 cm (5' 5 ) 09/26/2024 12:47 PM WORKERS COMPENSATION COORDINATOR Body Mass Index 31.62 09/26/2024 12:47 PM WORKERS COMPENSATION COORDINATOR Plan of Treatment Upcoming Encounters Date Type Department Care Team (Latest Contact Info) Description 10/31/2024 9:30 AM WORKERS COMPENSATION COORDINATOR Hospital Encounter [facility] [place] [address] [place] [address] Charli Ramirez MD 1 [facility] [address] [place] [address] 10/31/2024 9:30 AM WORKERS COMPENSATION COORDINATOR - 10/31/2024 10:00 AM WORKERS COMPENSATION COORDINATOR Surgery [facility] [place] [address] [place] [address] Charli Ramirez MD 1 [facility] [address] [place] [address] ESOPHAGOGASTRODUODENOSCOPY Scheduled Procedures Name Priority Associated Diagnoses Date/Ti me ESOPHAGOGASTRODUODENOSCOPY Weight loss Dysphagia, unspecified type 10/31/2024 9:30 AM WORKERS COMPENSATION COORDINATOR ESOPHAGOGASTRODUODENOSCOPY Open Access Weight loss Dysphagia, unspecified type COLONOSCOPY Open Access Colon cancer screening COLONOSCOPY Open Access Screening for colon cancer Colitis Health Maintenance Due Date Last Done Comments Breast Cancer Screening-Mammogram 1955 Depression Screening 1955 Foot Exam 1955 Hepatitis B Screening 1972 Zoster Vaccine (1 of 2) 2004 Well Visit 65+ 2019 Lipid Panel 05/27/2023 05/27/2022, 12/28, 01/30/2014, Additional history exists Hemoglobin A1C 11/16/2023 05/18/2023, 05/01, 03/14/2022, Additional history exists Covid-19 Vaccine (2023-09 5 season) 2024 08/06/2023, 09/02/2022, 01/09/2022, Additional history exists Influenza Vaccine (#1) 2024 3, 09/02/2022, 06/16/2019, Additional history exists Albumin Creatinine Ratio, Urine 02/03/2025 4, 01/17/2018 Dilated Eye Exam 02/07/2025 02/08/2024, 11/2019, 07/26/2019, Additional history exists Fall Risk Assessment 02/17/2025 02/18/2024, 07/25/20 19 Osteoporosis Screening-Bone Density Scan 06/24/2025 06/24/2023, 02/18/2021 eGFR 09/01/2025 09/01/2024, 10/28, 05/18/2023, Additional history exists DTaP/Tdap/Td Vaccine (2 - Td or Tdap) 05/18/2033 05/18/2023 Colon Cancer Screening-Colonoscopy 06/21/2034 06/21/2024, 06/02/2019 Pneumococcal vaccine 65+ Completed 11/01/2020, 08/30 Hepatitis C Screening Completed 05/18/2023 Colon Cancer Screening-CT Colonography Discontinued 06/21/2024, 06/02/2019 Colon Cancer Screening-DNA Stool Discontinued 06/21/20 24, 06/02/2019 Colon Cancer Screening-FIT Discontinued 06/21/2024, Colon Cancer Screening-Sigmoidoscopy Discontinued 06/21/2024, 06/02/2019 Goals Goal Patient Goal Type Associated Problems [...] as needed Medical Devices Implanted Type Area Business Systems Architect Device Identifier Shelf Expiration Date Model / Serial / Lot [place] [employer] [id number] 21.0d Tecnis Protec 6mm 13mm 1 Piece Anterior Aspheric Square Edge Uv - [id number] - [id number] Implanted:Qty: 1 on 06/30/2019 by Bernardo Le MD at [facility] Lens Right: Lens [employer] 05/22/2023 [id number] / [id number] / 0 [place] [employer] Lens Laura Grant Iol [id number] - [id number] - [id number] Implanted:Qty: 1 on 02/18/2024 by Bernardo Le MD at [facility] Advanced Medicine Lens Left: Eye [employer] [id number] 11/28/2026 [id number] / [id number] / 0 Allosource Crushed Chip Frozen Graft 30ml Bone Cancellous [id number] - [id number] Implanted:Qty: 1 on 05/27/2022 by Juni Mendosa MD at [facility] N/A: Spine Cervical Allosource 01/12/2027 [id number] / / [id number] Musculoskeletal Transplant Allograft Putty Freeze Dried Filler 10cc Bone Void [id number] - [id number] - [id number] Implanted:Qty: 1 on 05/27/2022 by Juni Mendosa MD at [facility] N/A: Spine Cervical Musculoskeletal Transplant 02/08/2024 [id number] / [id number] / Depuy Synthes Spine Lock Cap Spine T15 Standard Screw Set Titanium Nonsterile [id number] - [id number] Implanted:Qty: 12 on 05/27/2022 by Juni Mendosa MD at [facility] N/A: Spine Cervical Depuy Synthes Spine [id number] / / Depuy Synthes Spine 3.5mm 12mm Ply Spine Screw Bone Nonsterile 4mm Riley [id number] - [id number] Implanted:Qty: 8 on 05/27/2022 by Juni Mendosa MD at [facility] N/A: Spine Cervical Depuy Synthes Spine [id number] / / Depuy Synthes Spine 5mm 28mm Ply Spine Pedicle Screw Bone Nonsterile 4mm Riley [id number] - [id number] Implanted:Qty: 4 on 05/27/2022 by Juni Mendosa MD at [facility] N/A: Spine Cervical Depuy Synthes Spine [id number] / / Depuy Synthes Spine 3.5mm 80mm Lordosis Riley Spinal Titanium [id number] - [id number] Implanted:Qty: 2 on 05/27/2022 by Juni Mendosa MD at [facility] N/A: Spine Cervical Depuy Synthes Spine [id number] / / Nuvasive Inc Cage Spinal Modulus 10 D Xl Wide L55 Mm X W22 Mm X H8 Mm Sterile Latex Free [id number] - [id number] Implanted:Qty: 1 on 06/24/2022 by Juni Mendosa MD at [facility] N/A: Spine Lumbar Nuvasive Inc [id number] 09/09/2024 [id number] / / [id number] Nuvasive Inc Cage Spinal Modulus 10 D Xl Wide L55 Mm X W22 Mm X H8 Mm Sterile Latex Free [id number] - [id number] Implanted:Qty: 1 on 06/24/2022 by Juni Mendosa MD at [facility] N/A: Spine Lumbar Nuvasive Inc [id number] 01/05/2027 [id number] / / [id number] Bioventus Osteoamp Select Flowable 10cc Oafl-10 - [id number] - [id number] Implanted:Qty: 1 on 06/24/2022 by Juni Mendosa MD at [facility] N/A: Spine Lumbar BIOVENTUS 12/16/2024 [id number]-10 / [id number] / Procedures Procedure Name Priority Date/Time Associated Diagnosis Comments EGFR Routine 09/01/2024 12:30 PM WORKERS COMPENSATION COORDINATOR Weight loss DIFFERENTIAL AUTO Routine 09/01/2024 12: 30 PM WORKERS COMPENSATION COORDINATOR Weight loss CBC WITH AUTO DIFFERENTIAL Routine 09/01/2024 12:30 PM WORKERS COMPENSATION COORDINATOR Weight loss COMPREHENSIVE METABOLIC PANEL Routine 09/01/2024 12:30 PM WORKERS COMPENSATION COORDINATOR Weight loss COLONOSCOPY 06/21/2024 11:35 AM CDT [...] Maintenance Results * eGFR (09/01/2024 12:30 PM WORKERS COMPENSATION COORDINATOR) eGFR 78 >=60 mL/min/1. 73 m2 Comment: [...] of Race in Diagnosing Kidney Disease, JASN 2020). The CKD-EPI equation should not be used for patients with unstable renal function and has not been validated in children and those over 70. Current interpretive data was last reviewed 2021. Blood 09/01/2024 12:3 0 PM WORKERS COMPENSATION COORDINATOR 09/01/2024 2:26 PM WORKERS COMPENSATION COORDINATOR us Angela Jessica MD LAB BLOOD ORDERABLES Fin al Result [facility] Department [place] [address] * (ABNORMAL) Differential, auto (09/01/2024 12:30 PM WORKERS COMPENSATION COORDINATOR) Neutrophil abs 9.4(H) 1.5 - 6.5 K/cumm Imm gran abs 0.0 0.0 - 0.1 K/cumm [facility] Lymphocyte abs 2.4 0.8 - 3.3 K/cumm [facility] Monocyte abs 0.8 0.2 - 0.8 K/cumm [facility] Eosinophil abs 0.0 0.0 - 0.5 K/cumm [facility] Basophil abs 0.0 0.0 - 0.1 K/cumm [facility] Neutrophil pct 74.2 % [facility] Comment: Interpretive Data Percent cell count reference ranges are not reported, since discordance with absolute values may lead to misinterpretation of CBC data. Current Interpretive Data was last revised on 2017. Imm gran pct 0.3 % [facility] Comment: Interpretive Data Percent cell count reference ranges are not reported, since discordance with absolute values may lead to misinterpretation of CBC data. Current Interpretive Data was last revised on 2017. Lymphocyte pct 19.1 % [facility] Comment: Interpretive Data Percent cell count reference ranges are not reported, since discordance with absolute values may lead to misinterpretation of CBC data. Current Interpretive Data was last revised on 2017. Monocyte pct 6.1 % [facility] Comment: Interpretive Data Percent cell count reference ranges are not reported, since discordance with absolute values may lead to misinterpretation of CBC data. Current Interpretive Data was last revised on 2017. Eosinophil pct 0.1 % [facility] Comment: Interpretive Data Percent cell count reference ranges are not reported, since discordance with absolute values may lead to misinterpretation of CBC data. Current Interpretive Data was last revised on 2017. Basophil pct 0.2 % [facility] Comment: Interpretive Data Percent cell count reference ranges are not reported, since discordance with absolute values may lead to misinterpretation of CBC data. Current Interpretive Data was last revised on 2017. Blood 09/01/2024 12:3 0 PM WORKERS COMPENSATION COORDINATOR 09/01/2024 2:18 PM WORKERS COMPENSATION COORDINATOR Angela Jessica MD LAB BLOOD ORDERABLES Fin al Result Performing Organization Address City/[facility]/ZIP Co de Phone Number [facility] Department [place] [employer] [place] [address] * (ABNORMAL) CBC with auto differential (09/01/2024 12:30 PM WORKERS COMPENSATION COORDINATOR) WBC 12.6(H) 3.8 - 9.9 K/cumm Hgb 14.4 11.9 - 15.5 g/dL [facility] Hct 44.7 35.6 - 45.5 % [facility] Plt 211 150 - 400 K/cumm [facility] MPV 11.1 9.1 - 12.3 fL [facility] RBC 4.48 3.90 - 5.20 M/cumm [facility] MCV 99.8(H) 81.3 - 96.4 fL [facility] MCH 32.1 27.1 - 33.3 pg [facility] MCHC 32.2(L) 32.3 - 35.7 g/dL [facility] RDW CV 14.5 11.1 - 14.9 % [facility] RDW SD 53.3(H) 35.7 - 48.1 fL [facility] NRBC abs 0.00 0.00 - 0.01 K/cumm [facility] Blood 09/01/2024 12:3 0 PM WORKERS COMPENSATION COORDINATOR 09/01/2024 2:18 PM WORKERS COMPENSATION COORDINATOR Angela Jessica MD LAB BLOOD ORDERABLES Fin al Result Performing Organization Address City/[facility]/ZIP Co de Phone Number [facility] Department [place] [address] * (ABNORMAL) Comprehensive metabolic panel (09/01/2024 12:30 PM WORKERS COMPENSATION COORDINATOR) Sodium 144 135 - 145 mmol/L Potassium, pl 2.9(L) 3.3 - 4.9 mmol/L [facility] Chloride 100 97 - 110 mmol/L [facility] CO2 30 22 - 32 mmol/L [facility] Anion gap 14 2 - 15 mmol/L [facility] BUN 8 6 - 25 mg/dL [facility] Creatinine 0.81 0.60 - 1.10 mg/dL [facility] Glucose 94 70 - 199 mg/dL [facility] Comment: Interpretive Data Fasting glucose >/= 126 [...] classification and Diagnosis of Diabetes Diabetes Care 2021; 46: S19-S40. Current interpretive data was last revised 2022. Calcium 9.3 8.5 - 10.3 mg/dL [facility] Bilirubin, total 0.5 0.1 - 1.2 mg/dL [facility] Protein, pl 7.5 6.5 - 8.5 g/dL [facility] Albumin 4.2 3.5 - 5.0 g/dL [facility] Alk phos 36(L) 40 - 130 Units/L [facility] ALT 7 7 - 45 Units/L [facility] AST 18 10 - 45 Units/L [facility] Blood 09/01/2024 12:3 0 PM WORKERS COMPENSATION COORDINATOR 09/01/2024 2:18 PM WORKERS COMPENSATION COORDINATOR us Angela Jessica MD LAB BLOOD ORDERABLES Fin al Result [facility] Department [place] [address] * Colonoscopy (06/21/2024 11:35 AM CDT) Anatomical Region Laterality Modality Other Narrative Procedure Note Omid Singh MD - 06/21/2024 11:35 AM CDT [facility] ENDOSCOPY [facility] Patient Name: Cat Reese Procedure Date: 06/21/2024 11:35AM Date of : 1955 Admit Type: Outpatient Age: 68 Gender: Female Attending MD: Omid Singh M.D. Room: [facility] ENDOSCOPY ROOM 4 Note Status: Finalized [...] The scope was passed under direct vision.The [id number] endoscope was introduced through the anus and advanced to the cecum, identified by appendiceal orifice and ileocecal valve. Theterminal ileum, ileocecal valve, appendiceal orifice, and rectum were photographed. The entire colon was well visualized. The colonoscopy was performed withease. The patient tolerated the procedure well. Thequality of the bowel preparation was excellent. The qualityof the bowel preparation was evaluated using the BBPS ([place] Bowel Preparation Scale) with scores of:Right Colon [...] last revised 2019. Creatinine Ur 323.4 mg/dL [facility] Comment: Interpretive Data No reference range established. Current interpretive data was last revised 2019. Albumin Creatinine Ratio, Ur <4 1 - 29 mg/g [facility] Urine 02/04/2024 11:1 5 AM CDT 02/04/2024 12:20 PM CDT Denice Gonzales MD LAB URINE ORDERABLES Final Result [facility] Department [place] [address] * Dexa Axial Skeleton Bone Density 1 [...] C antibody Blood (05/18/2023 11:08 AM CDT) [facility] Hep C Ab Nonreactive Nonreactive Comment:Antibodies to HCV no t detected. Does NOT exclude the possibility of recent exposure to HCV. Current interpretive data was last revised on 22 Blood 05/18/2023 11:0 8 AM CDT 05/18/2023 12:16 PM CDT us Octaviano Richter MD LAB MICROBIOLOGY - GENERAL ORDER MESSI Final Result Performing Organization Address [facility] de Phone Number [facility] [address] * (ABNORMAL) Hemoglobin A1c (05/18/2023 11:08 AM CDT) [facility] Hgb A1C 6.1(H) 4.0 - 5.6 % [facility] Estimated Average Glucose 128 mg/dL [facility] Comment: The ADA recommends reporting an estimated [...] MD LAB BLOOD ORDERABLES Final Resul t Performing Organization Address [facility] Co de Phone Number [facility] [address] * Lipid panel (05/27/2022 8:21 PM CDT) [facility] Cholesterol 166 30 - 199 mg/dL [facility] Comment: Interpretive Data Ages < or [...] revised on 2018. Triglycerides 54 <=149 mg/dL [facility] Comment: Interpretive Data Ages < or [...] revised on 2018. HDL 67 >=40 mg/dL [facility] Comment: Interpretive Data Ages < or [...] on 2018. LDL, calculated 88 <=129 mg/dL [facility] Comment: Interpretive Data Ages < or [...] on 2018. Non-HDL Cholesterol 99 mg/dL [facility] Comment: Interpretive Data Ages < or = [...] last revised on 2018. Chol/HDL ratio 2 [facility] Blood 05/27/2022 8:21 PM CDT 05/27/2022 8:43 PM CDT us Juni Mendosa MD LAB BLOOD ORDERABLES Final Resu lt [facility] Department [place] [address] from Last 3 Months or Most Recently Relevant to Health Maintenance Insurance [employer] [facility] MEDICARE Address: [id number] [place] [address] MEDICARE [facility] MEDICARE SOLUTIONS Advance Directives For more information, please contact: [phone] * Full Code (Latest Code Status on [...] 7:23 AM 06/02/2019 1:26 PM Care Teams Dependency Case Manager Relationship Specialty Start Date End Date Magdy Grove MD [address] [id number] PCP - General Internal Medicine 06/09/24
--- OUTSIDE RECORDS SUMMARY | 2024-10-23 17:13 | XMS_ITS | Patient Health Summary ---
Author Organization [facility] [employer] Address [address] [place] [address] Care Team Providers Care Territory Business Manager Name Role Phone Unavailable Primary Care Provider Unavailabl e Note from [facility],non-owned Affiliates and Associated Physician Practices is amultiple site organization consisting of ambulatory clinics and hospital sitesin [place], [place], [place] and [place]. This disclosure is being madepursuant to the Care Everywhere program and may not contain all information available regarding this patient. Last updated 18.[facility] [employer] Allergies * Celecoxib(Other) -Low Criticality * Enovarx-Ibuprofen(Shortness [...] are intact. Dictated by Khris Silverman MD (Final Inspection Supervisor). This report was approved by Khris Silverman [...] are intact. Dictated by Khris Silverman MD (Final Inspection Supervisor). This report was approved by Khris Silverman M.D. on 06/04/2015 3:[address] MARCO A Burk M.D. have personally reviewed and interpreted thisexamination/study. This report was electronically signed by MARCO A LEBRON M.D. on 06/04/20154:25 PM . Jyothi Ochoa MD DIAGNOSTIC IMAGING O [facility]
--- OUTSIDE RECORDS SUMMARY | 2024-10-23 17:13 | XMS_ITS | Encounter Summary ---
Author Organization [facility] Healthcare Address [address] [place] [address] Care Team Providers Care Chef French Name Role Phone Armando Allan MD Primary Care Provider [phone] Magdy Grove MD Primary Care Provider + Unknown, Notinfile Primary Care Provider Unavail able Magdy Grove MD Primary Care Provider + Encounter Details Date Type Department Care Team (Late st Contact Info) Description 08/02/2023 Telephone [facility] Primary Care Medicine Clinic [address] [facility] [address] [place] [address] Armando Allan MD [address] [place] [address] Social History Tobacco Use Types Packs/Day Years [...] declined 06/22/2022 How often do you attend advent or advent serv ices? Patient declined 06/22/2022 Do you belong to any clubs o r organizations such as advent groups, unions, fraternal or athletic groups, or school groups? Patient declined 06/22/2022 How often do you attend meet ings of the clubs or organizations you belong to? Patient declined 06/22/2022 Are you , , di vorced, , never , or living with a partner? Patient declined 06/22/2022 AUDIT-C Answer Date Recorded Q1: How often do you have a drink containing alc ohol? Never 08/06/2023 Average Number of Drinks Not on file 023 Frequency of Binge Drinking Not on file 03/2023 Overall Financial Resource Strain (CARDIA) Answe r [...] on file Legal Sex Female 5:10 AM RN HEMATOLOGY Gender Identity Female 02/01/2020 12:43 PM CDT Sexual Orientation Not on file Occupation Industry Job Start Date Job End Date Retired Not on file Not on file Not on file documented as of this encounter Plan of Treatment Upcoming Encounters Date Type Department Care Team (Latest Contact Info) Description 10/31/2024 9:30 AM RN HEMATOLOGY Hospital Encounter [facility] [place] [address] [place] [address] Charli Ramirez MD 1 [facility] [address] [place] [address] 10/31/2024 9:30 AM RN HEMATOLOGY - 10/31/2024 10:00 AM RN HEMATOLOGY Surgery [facility] [place] [address] [place] [address] Charli Ramirez MD 1 [facility] [address] [place] [address] ESOPHAGOGASTRODUODENOSCOPY Scheduled Procedures Name Priority Associated Diagnoses Date/Ti hi ESOPHAGOGASTRODUODENOSCOPY Weight loss Dysphagia, unspecified type 10/31/2024 9:30 AM RN HEMATOLOGY ESOPHAGOGASTRODUODENOSCOPY Open Access Weight loss Dysphagia, unspecified [...] on filedocumented in this encounter Care Teams Chef French Relationship Specialty Start Date End Date Armando Allan MD PCP - General Internal Medicine 02/20/21 02/18/24 Magdy Grove MD [address] [facility] [id number] [place] [address] PCP - General 02/19/24 06/07/24 Unknown, Notinfile PCP - General 06/08/24 06/08/24 Magdy Grove MD [address] [facility] [address] [place] [address] PCP - General Internal Medicine 06/09/24 documented as of this encounter
--- OUTSIDE RECORDS SUMMARY | 2024-10-23 17:13 | XMS_ITS | Encounter Summary ---
Author Organization [facility] Healthcare Address [address] [place] [address] Care Team Providers Care Computer Patternmaker Name Role Phone Armando Allan MD Primary Care Provider [phone] Judith Ahn RN Unavailable [phone] Magdy Grove MD Primary Care Provider + Unknown, Notinfile Primary Care Provider Unavail able Magdy Grove MD Primary Care Provider + Encounter Details Date Type Department Care Team (Late st Contact Info) Description 01/12/2022 Telephone [facility] Primary Care Medicine Clinic [address] [facility] [address] [place] [address] Armando Allan MD [address] [place], [place] [id number] Social History Tobacco Use Types Packs/Day Years Used Date Smoking Tobacco: Former Cigarettes 2 5 0 08/30/1994 - 08/30/1999 Smokeless Tobacco: Never Comments:Per pt smoked 2ppd for 5yrs in the Alcohol Use Standard Drinks/Week Comments Not Currently 0 (1 standard drink = 0.6 oz pur e alcohol) AUDIT-C Answer Date Recorded Q1: How often do you have a drink containing alc ohol? Monthly or less 11/01/2020 Average Number of Drinks Not on file 021 Frequency of Binge Drinking Not on file 12/2020 Comments No Sex and Gender Information Value Date Recorded Sex Assigned at Not on file Legal Sex Female 5:10 AM ENVIRONMENTAL HEALTH NURSE Gender Identity Female 02/01/2020 12:43 PM CDT Sexual Orientation Not on file documented as of this encounter Plan of Treatment Upcoming Encounters Date Type Department Care Team (Latest Contact Info) Description 10/31/2024 9:30 AM ENVIRONMENTAL HEALTH NURSE Hospital Encounter [facility] Digestive Disease [place] [address] [place] [address] Charli Ramirez MD 1 [facility] [address] [place] [address] 10/31/2024 9:30 AM ENVIRONMENTAL HEALTH NURSE - 10/31/2024 10:00 AM ENVIRONMENTAL HEALTH NURSE Surgery [facility] Digest[facility] [place] [address] [place] [address] Charli Ramirez MD 1 [facility] [address] [place] [address] ESOPHAGOGASTRODUODENOSCOPY Scheduled Procedures Name Priority Associated Diagnoses Date/Ti tx ESOPHAGOGASTRODUODENOSCOPY Weight loss Dysphagia, unspecified type 10/31/2024 9:30 AM ENVIRONMENTAL HEALTH NURSE ESOPHAGOGASTRODUODENOSCOPY Open Access Weight loss Dysphagia, unspecified [...] documented as of this encounter Care Teams Computer Patternmaker Relationship Specialty Start Date End Date Armando Allan MD PCP - General Internal Medicine 02/20/21 02/18/24 Magdy Grove MD One [facility] [phone] [place] [address] PCP - General 02/19/24 06/07/24 Unknown, Notinfile PCP - General 06/08/24 06/08/24 Magdy Grove MD [address] [facility] [address] [place], [place] [id number] PCP - General Internal Medicine 06/09/24 Judith Ahn, RN [address] [facility] [address] [place] [address] SHOP Outpatient Staff Physician 06/05/22 06/25/22 documented as of this encounter
--- OUTSIDE RECORDS SUMMARY | 2024-10-23 17:13 | XMS_ITS | Clinical Summary ---
Author Organization [facility] [employer] Address [address] [place] [address] Care Team Providers Care Olericulturist Name Role Phone Unavailable Primary Care Provider Unavailabl e Source Comments [facility] [employer],non-owned Affiliates and Associated Physician Practices is amultiple site organization consisting of ambulatory clinics and hospital sitesin [place], [place], [place] and [place]. This disclosure is being madepursuant to the Care Everywhere program and may not contain all information available regarding this patient. Last updated 18.[facility] [employer] Allergies Active Allergy Reactions Criticality Noted Date [...]
[2024-10-23 17:27] LABS: Add Urine Microscopic? YES; Appearance Urine Turbid (Clear); Bacteria Urine 4+ /hpf; Bilirubin Urine Negative (Negative); Blood Urine 2+ (Negative); Color Urine Dark Yellow (Yellow); Glucose Urine UA Negative (Negative); Ketones Urine Trace mg/dL (Negative); Leukocyte Esterase Ur 3+ LEU/UL (Negative); Need Manual Microscopic Reviewed; Nitrate Urine Positive (Negative); Protein Urine Trace mg/dL (Negative); RBC Urine 21-50 /hpf (0-2); Specific Grav Ur 1.023 (1.001-1.035); Squamous Epithelial Cell Urine Few /hpf (Few); pH Urine 7.5 (5.0-9.0)
[2024-10-23 17:37] VITALS: PULSE 87; RESP 19; O2SAT 99
== END 2024-10-23 17:40 | disposition home or self-care (01) ==
PROVIDERS: Emergency Provider Emergency Medicine
DX: K59.03 Drug induced constipation (principal); T40.605A Adverse effect of unspecified narcotics, initial encounter; I10 Essential (primary) hypertension; J45.909 Unspecified asthma, uncomplicated; E11.9 Type 2 diabetes mellitus without complications; E89.0 Postprocedural hypothyroidism; M06.9 Rheumatoid arthritis, unspecified; F41.8 Other specified anxiety disorders; Z87.891 Personal history of nicotine dependence; Z90.710 Acquired absence of both cervix and uterus; Z90.49 Acquired absence of other specified parts of digestive tract; Z79.899 Other long term (current) drug therapy; K42.9 Umbilical hernia without obstruction or gangrene; K43.9 Ventral hernia without obstruction or gangrene
CPT/HCPCS: 36415; 74177; 80053; 81001; 85025; 85610; 85730; 87086; 99284; A9270; Q9967